=== PATIENT | female | born 1940 | race Caucasian/White ===

== ENCOUNTER → 2016-07-18 | Outpatient (CLI) | payer OTHER ==
[~2016-07-18] MED LIST: ATEN100T PO; CHOL200010 PO; CYAN100048; NYSS5 PO; PRAV20TA PO
== END | disposition home or self-care (01) ==
LOC: C.LABSPEC 13:25
PROVIDERS: ATTEND Family Medicine
DX: N28.89 Other specified disorders of kidney and ureter (principal)

== ENCOUNTER → 2016-07-27 | Outpatient (CLI) | payer OTHER ==
[2016-07-27 13:16] LABS: BLOOD UREA NITROGEN 15 mg/dl (7-18); BUN/CREATININE RATIO 18.2 (10-20); CREATININE 0.84 mg/dl (0.60-1.20)
== END | disposition home or self-care (01) ==
LOC: C.LABMFLN 08:37
PROVIDERS: ATTEND Urology
DX: N28.89 Other specified disorders of kidney and ureter (principal)

== ENCOUNTER → 2016-08-02 | Outpatient (CLI) | payer OTHER ==
[~2016-08-02] MED LIST changes: +OPTIRAY 320 IV PRN
--- NOTE | 2016-08-02 12:07 | DIAGNOSTIC IMAGING REPORT ---
KIDNEY (ABDOMEN) CT WITH AND WITHOUT INTRAVENOUS CONTRAST HISTORY: N39.0 Recurrent UTIN28.89 Renal [id number] TECHNIQUE: Multiaxial CT images of the abdomen were performed both before and after the intravenous administration of contrast to evaluate the kidneys. COMPARISON STUDY: Abdomen and pelvis CT 01/09/2014. FINDINGS: No renal stones or hydronephrosis. Bilateral proximal to mid ureters are normal in course and caliber. No renal masses identified. Focal scarring/defect within the lower pole of the right kidney remains unchanged. No suspicious filling defects seen within the opacified bilateral renal collecting systems or proximal to mid ureters. The lung bases are clear. Small hiatus hernia. No suspicious lytic or blastic osseous lesions. The visualized loops of bowel show no wall thickening or obstruction. A 4 mm hypodense lesion within the left hepatic lobe is too small to characterize but favors a cyst. This remains unchanged. The pancreas, spleen, and adrenal glands are unremarkable. No retroperitoneal lymphadenopathy. Cholecystectomy. IMPRESSION: 1. No renal masses identified. 2. No renal stones or hydronephrosis. 3. Stable cortical defect/scar within the lower pole of the right kidney. Electronically signed by: Jose A Rodríguez M.D. 08/02/2016 12:05 PM Dictated Date/Time: 08/02/2016 11:51 AM
== END | disposition home or self-care (01) ==
LOC: C.CTS 09:57
PROVIDERS: ATTEND Urology
DX: N28.89 Other specified disorders of kidney and ureter (principal); N39.0 Urinary tract infection, site not specified

== ENCOUNTER → 2016-09-19 | Outpatient (CLI) | payer OTHER ==
[~2016-09-19] MED LIST changes: -OPTIRAY 320 IV PRN
[2016-09-19 13:23] LABS: BASO % 1.8 %; BASO ABS # 0.15 K/uL (0-0.2); COMPLETE YES; EOS % 6.3 %; HEMATOCRIT 41.1 % (37-47); IG% 0.1 %; LYMPH % 22.4 %; LYMPH ABS # 1.83 K/uL (1.2-3.4); MEAN CELL VOLUME 91.1 fL (80-100); MEAN CORPUSCULAR HGB CONC 34.1 g/dl (32-36); MEAN PLATELET VOLUME 9.5 fL (7.4-10.4); MONO % 9.2 %; NEUT % 60.2 %; PLATELET COUNT 725 K/uL (130-400); RED BLOOD COUNT 4.51 M/uL (4.2-5.4); WHITE BLOOD COUNT 8.16 K/uL (4.8-10.8)
[2016-09-19 14:25] LABS: ALT/SGPT 56 U/L (12-78); AST/SGOT 33 U/L (15-37); BLOOD UREA NITROGEN 14 mg/dl (7-18); BUN/CREATININE RATIO 16.7 (10-20); CARBON DIOXIDE 25 mmol/L (21-32); CHLORIDE 104 mmol/L (98-107); CREATININE 0.84 mg/dl (0.60-1.20); GLUCOSE 93 mg/dl (70-99); SODIUM 138 mmol/L (136-145)
[2016-09-19 14:28] LABS: CHOLESTEROL 136 mg/dl (0-200); HDL CHOLESTEROL 45 mg/dl; LDL CHOLESTEROL CALCULATED 66 mg/dl; TRIGLYCERIDES 126 mg/dl (0-150); VERY LOW DENSITY LIPOPROT CALC 25 mg/dl
== END | disposition home or self-care (01) ==
LOC: C.LABMFLN 10:10
PROVIDERS: ATTEND Family Medicine
DX: I10 Essential (primary) hypertension (principal); R53.83 Other fatigue; E78.00 Pure hypercholesterolemia, unspecified; E55.9 Vitamin D deficiency, unspecified; E53.8 Deficiency of other specified B group vitamins

== ENCOUNTER → 2016-10-06 | Outpatient (CLI) | payer OTHER ==
[~2016-10-06] MED LIST changes: +AMLO-110 PO; +ASPEC81 PO; +ATOR-24 PO; +BUPR150T6 PO; +HYD500 PO; +IBUP-1428 PO; +LORA-741 PO; +MAGN250T9 PO; +SERT50TA PO; +TOPI25TA10 PO; +ZNT150 PO
== END | disposition home or self-care (01) ==
LOC: C.LABMFLN 11:57
PROVIDERS: ATTEND Family Medicine
DX: N39.0 Urinary tract infection, site not specified (principal)

== ENCOUNTER → 2017-03-27 | Outpatient (CLI) | payer OTHER ==
[2017-03-27 13:55] LABS: BASO % 1.2 %; BASO ABS # 0.12 K/uL (0-0.2); COMPLETE YES; EOS % 5.6 %; HEMATOCRIT 45.7 % (37-47); IG% 0.2 %; LYMPH % 12.5 %; LYMPH ABS # 1.21 K/uL (1.2-3.4); MEAN CELL VOLUME 92.9 fL (80-100); MEAN CORPUSCULAR HEMOGLOBIN 30.7 pg (25-34); MEAN PLATELET VOLUME 9.4 fL (7.4-10.4); NEUT % 72.5 %; PLATELET COUNT 914 K/uL (130-400); RED BLOOD COUNT 4.92 M/uL (4.2-5.4); WHITE BLOOD COUNT 9.67 K/uL (4.8-10.8)
[2017-03-27 14:41] LABS: ALKALINE PHOSPHATASE 69 U/L (45-117); ALT/SGPT 73 U/L (12-78); AST/SGOT 59 U/L (15-37); BLOOD UREA NITROGEN 12 mg/dl (7-18); BUN/CREATININE RATIO 14.1 (10-20); CARBON DIOXIDE 25 mmol/L (21-32); CHLORIDE 102 mmol/L (98-107); CREATININE 0.88 mg/dl (0.60-1.20); GLUCOSE 99 mg/dl (70-99); HDL CHOLESTEROL 53 mg/dl; POTASSIUM 4.4 mmol/L (3.5-5.1); SODIUM 135 mmol/L (136-145)
[2017-03-27 14:47] LABS: AMYLASE 24 U/L (25-115); CHOLESTEROL 146 mg/dl (0-200); CHOLESTEROL/HDL RATIO 2.8; LDL CHOLESTEROL CALCULATED 72 mg/dl; TRIGLYCERIDES 104 mg/dl (0-150); VERY LOW DENSITY LIPOPROT CALC 21 mg/dl
== END | disposition home or self-care (01) ==
LOC: C.LABMFLN 10:40
PROVIDERS: ATTEND Family Medicine
DX: I10 Essential (primary) hypertension (principal); E55.9 Vitamin D deficiency, unspecified; E53.8 Deficiency of other specified B group vitamins; E78.00 Pure hypercholesterolemia, unspecified; R11.2 Nausea with vomiting, unspecified; R53.83 Other fatigue

== ENCOUNTER → 2017-04-02 | Outpatient (CLI) | payer OTHER ==
[~2017-04-02] MED LIST changes: -AMLO-110 PO; -ASPEC81 PO; -ATOR-24 PO; -BUPR150T6 PO; -HYD500 PO; -IBUP-1428 PO; -LORA-741 PO; -MAGN250T9 PO; -SERT50TA PO; -TOPI25TA10 PO; -ZNT150 PO
--- NOTE | 2017-04-02 11:12 | DIAGNOSTIC IMAGING REPORT ---
GI W/AIR SMALL BOWEL ROUTINE CLINICAL HISTORY: R11.2 Nausea and [id number] Fatigue [facility] [id number] E X0D E R COMPARISON STUDY: Upper GI and small bowel follow-through 12/28/2015. FLUOROSCOPY TIME: 2.7 minutes. 37 images submitted. FINDINGS: The patient swallowed barium without difficulty. The esophagus is normal in course, caliber, motility. There is suggestion of prior Vangie fundoplication. Small sliding hiatus hernia persists. No gastroesophageal reflux demonstrated during the examination. The duodenal bulb and duodenal C sweep are within normal limits. Additional images of the small bowel were obtained. The small bowel is normal in course and caliber. No evidence for obstruction. The terminal ileum is normally distensible. Contrast reached the large bowel at 60 minutes IMPRESSION: 1. No significant change compared to the prior study. 2. Suggestion of prior Vangie fundoplication. A small sliding hiatal hernia persists. 3. Normal small bowel follow-through. Electronically signed by: Jose A Rodríguez M.D. 04/02/2017 11:10 AM Dictated Date/Time: 04/02/2017 11:05 AM
== END | disposition home or self-care (01) ==
LOC: C.RAD 09:33
PROVIDERS: ATTEND Family Medicine
DX: R53.83 Other fatigue (principal); R11.2 Nausea with vomiting, unspecified

== ENCOUNTER 2017-04-06 16:43 | Inpatient (IN) | payer OTHER ==
[~2017-04-06] VITALS: Ht 157.5 cm; Wt 72.9 kg
--- NOTE | 2017-04-06 17:43 | DIAGNOSTIC IMAGING REPORT ---
CHEST ONE VIEW PORTABLE CLINICAL HISTORY: 77 years-old Female presenting with EVALUATE ALTERED MENTAL STATUS/WEAKNESS. TECHNIQUE: Portable upright AP view of the chest was obtained. COMPARISON: 01/06/2014. FINDINGS: Atherosclerosis of aortic arch. Cardiac silhouette normal in size. Lungs and pleural spaces clear. Degenerative changes of the right glenohumeral joint. Cholecystectomy clips noted. IMPRESSION: 1. No acute cardiopulmonary disease. Electronically signed by: Selwyn Castro M.D. 04/06/2017 5:42 PM Dictated Date/Time: 04/06/2017 5:42 PM
[2017-04-06] MEDS ORDERED: AMLO-110 PO (17:45)
[2017-04-06] MEDS ORDERED: LORA-741 PO (17:46)
[2017-04-06] MEDS ORDERED: IBUP-1428 PO (17:47)
[2017-04-06] MEDS ORDERED: TOPI25TA10 PO (17:49)
[2017-04-06] MEDS ORDERED: ATOR-24 PO (17:53)
[2017-04-06] MEDS ORDERED: MAGN250T9 PO (17:55)
[2017-04-06] MEDS ORDERED: BUPR150T6 PO (17:56)
[2017-04-06] MEDS ORDERED: SERT50TA PO (17:58)
[2017-04-06 17:59] LABS: MANUAL MICROSCOPIC REQUIRED? NO; REVIEW REQ? NO; URINE APPEARANCE CLEAR (CLEAR); URINE BILIRUBIN NEG (NEG); URINE COLOR YELLOW; URINE EPITHELIAL CELL AUTO 0-5 /lpf (0-5); URINE NITRITE NEG (NEG); URINE SPECIFIC GRAVITY 1.016 (1.000-1.030); UROBILINOGEN NEG (NEG); ZZUR CULT IF INDIC CLEAN CATCH NO
[2017-04-06 18:17] LABS: ALT/SGPT 51 U/L (12-78); BLOOD UREA NITROGEN 9 mg/dl (7-18); BUN/CREATININE RATIO 10.5 (10-20); CALCIUM 9.4 mg/dl (8.5-10.1); CARBON DIOXIDE 26 mmol/L (21-32); CHLORIDE 102 mmol/L (98-107); CREATININE 0.85 mg/dl (0.60-1.20); GLUCOSE 88 mg/dl (70-99); MAGNESIUM 2.2 mg/dl (1.8-2.4); POTASSIUM 3.7 mmol/L (3.5-5.1); SODIUM 135 mmol/L (136-145)
--- NOTE | 2017-04-06 18:19 | DIAGNOSTIC IMAGING REPORT ---
HEAD CT NONCONTRAST CT DOSE: 537.48 mGy.cm HISTORY: EVALUATE ALTERED MENTAL STATUS/WEAKNESS TECHNIQUE: Multiaxial CT images of the head were performed without the use of intravenous contrast. Automated exposure control was utilized for this study. A dose lowering technique was utilized adhering to the principles of ALARA. Comparison: None. Findings: Single opacified left posterior ethmoid air cell, unchanged. The mastoid air cells are clear. The calvarium and skull base are intact. There is no mass, hematoma, midline shift, acute infarct. White matter hypodensity is nonspecific but suggestive of microvascular ischemic change. The ventricles and sulci demonstrate mild age-related involutional changes. Impression: No significant change compared to the prior study. No acute intracranial abnormality. Electronically signed by: Jose A Rodríguez M.D. 04/06/2017 6:18 PM Dictated Date/Time: 04/06/2017 6:09 PM
[2017-04-06 18:29] LABS: ALKALINE PHOSPHATASE 79 U/L (45-117); AST/SGOT 40 U/L (15-37); CKMB/CK RATIO 1.2 (0-3.0); PARTIAL THROMBOPLASTIN RATIO 1.2; PROTHROMBIN TIME (PATIENT) 10.7 SECONDS (9.0-12.0)
--- NOTE | 2017-04-06 18:41 | DIAGNOSTIC IMAGING REPORT ---
BILATERAL CAROTID DOPPLER STUDY HISTORY: Blurry vision in left eye. Possible stroke. COMPARISON: None. TECHNIQUE: Real-time, grayscale, and color Doppler sonography of the carotid arteries was performed. Imaging reviewed in the transverse and longitudinal planes. All measurements were calculated based on NASCET criteria. FINDINGS: Antegrade flow is seen in the bilateral vertebral arteries. The brachial pressures are hemodynamically similar. The peak systolic velocity within the right ICA is 60 cm/s. The right systolic ratio is 1. The peak systolic velocity within the left ICA is 52 cm/s. The left systolic ratio is 0.7. IMPRESSION: No hemodynamically significant stenosis seen within the carotid arteries. Electronically signed by: Jose A Rodríguez M.D. 04/06/2017 6:40 PM Dictated Date/Time: 04/06/2017 6:39 PM
[2017-04-06 19:17] LABS: HEMATOCRIT 42.6 % (37-47); MEAN CELL VOLUME 90.6 fL (80-100); MEAN CORPUSCULAR HEMOGLOBIN 32.6 pg (25-34); MEAN CORPUSCULAR HGB CONC 35.9 g/dl (32-36); MEAN PLATELET VOLUME 9.3 fL (7.4-10.4); PLATELET COUNT 858 K/uL (130-400); WHITE BLOOD COUNT 12.18 K/uL (4.8-10.8)
[2017-04-06 19:20] LABS: BASO % 0.8 %; COMPLETE YES; ECHINOCYTES 1+; EOS % 4.7 %; IG% 0.2 %; LYMPH % 14.1 %; LYMPH ABS # 1.72 K/uL (1.2-3.4); NEUT % 72.2 %
[2017-04-06] MEDS ORDERED: ASPIRIN 81 MG CHEW PO STA (20:15)
[2017-04-06] MEDS ORDERED: SODIUM CHLORIDE 0.9% 500ML 500 ML IV STA (20:15)
--- NOTE | 2017-04-06 20:39 | EMERGENCY ROOM VISIT NOTE ---
History Report prepared by Vangie: Santos Wheeler Under the Supervision of: Dr. Michele Ruby D.O. First contact with patient: 17:06 Chief Complaint: NEURO SYMPTOMS Stated Complaint: VERY BLURRED VISION IN LF EYE,WORRIED ABOUT STROKE History of Present Illness The patient is a 77 year old female who presents to the Emergency Room with complaints of constant blurry vision in her left eye, which she states has been improving. The patient states that she was sitting on the couch watching the news when suddenly she could not see anything but movement. Source of History: patient Onset: 1500 Position: ear (left) Quality: other (blurry vision) Timing: constant Review of Systems See HPI for pertinent positives & negatives. A total of 10 systems reviewed and were otherwise negative. Past Medical & Surgical Medical Problems: (1) Cancer of kidney (2) HTN (hypertension) Social History Smoking Status: Never Smoker Alcohol Use: none Drug Use: none Marital Status: Housing Status: lives with family Current/Historical Medications Scheduled Amlodipine (Norvasc), 5 MG PO DAILY Atenolol (Tenormin), 100 MG PO QAM Atorvastatin (Lipitor), 40 MG PO HS Bupropion HCl (Bupropion HCl Xl), 150 MG PO QAM Cholecalciferol (Vitamin D), 6,000 UNITS PO DAILY Cyanocobalamin (Vitamin B-12), 1,000 MCG DAILY Magnesium (Magnesium), 250 MG PO DAILY Sertraline (Zoloft), 25-50 MG PO HS Scheduled PRN Ibuprofen (Motrin), 800 MG PO QID PRN for Pain Lorazepam (Ativan), 0.5 MG PO BID PRN for Anxiety Topiramate (Topamax), 25 MG PO HS PRN for Migraine Allergies Coded Allergies: Codeine (Unverified Allergy, Unknown, UNKNOWN, 04/06/17) Lisinopril (Unverified Adverse Reaction, Severe, COUGHING, 04/06/17) Quinapril (Unverified Adverse Reaction, Severe, COUGHING, 04/06/17) Physical Exam Vital Signs Date Time Temp Pulse Resp B/P (MAP) Pulse Ox O2 Delivery O2 Flow Rate FiO2 04/06/17 19:13 57 04/06/17 18:45 63 16 158/65 04/06/17 16:56 36.4 60 20 172/84 97 Room Air Physical Exam VITAL SIGNS: were reviewed as above. GENERAL:Non-toxic in appearance. SKIN: Warm dry and pink. HEAD: Normocephalic and atraumatic. EYES: No gross abnormality noted on funduscopic exam of the left eye. Pupils equal and responsive. EOMI OROPHARYNX: Is clear and moist NECK: Supple without lymphadenopathy or meningismus. LUNGS: clear. HEART: Regular rate and rhythm. ABDOMEN: Soft and nontender. EXTREMITIES: Warm and well perfused. NEUROLOGICALLY: Awake alert and oriented without focal deficit. Cranial nerves 2 -12 are intact. There is no pronator drift. Cerebellar testing is within normal limits. There is no nystagmus. There is no facial droop. Speech is clear. Vision is grossly normal. MUSCULOSKELETAL: Good muscle tone. No evidence of trauma. Medical Decision & Procedures ER Provider Diagnostic Interpretation: Radiology results as stated below per my review and radiologist interpretation: HEAD CT NONCONTRAST CT DOSE: 537.48 mGy.cm HISTORY: EVALUATE ALTERED MENTAL STATUS/WEAKNESS TECHNIQUE: Multiaxial CT images of the head were performed without the use of intravenous contrast. Automated exposure control was utilized for this study. A dose lowering technique was utilized adhering to the principles of ALARA. Comparison: None. Findings: Single opacified left posterior ethmoid air cell, unchanged. The mastoid air cells are clear. The calvarium and skull base are intact. There is no mass, hematoma, midline shift, acute infarct. White matter hypodensity is nonspecific but suggestive of microvascular ischemic change. The ventricles and sulci demonstrate mild age-related involutional changes. Impression: No significant change compared to the prior study. No acute intracranial abnormality. Electronically signed by: Jose A Rodríguez M.D. 04/06/2017 6:18 PM Dictated Date/Time: 04/06/2017 6:09 PM CHEST ONE VIEW PORTABLE CLINICAL HISTORY: 77 years-old Female presenting with EVALUATE ALTERED MENTAL STATUS/WEAKNESS. TECHNIQUE: Portable upright AP view of the chest was obtained. COMPARISON: 01/06/2014. FINDINGS: Atherosclerosis of aortic arch. Cardiac silhouette normal in size. Lungs and pleural spaces clear. Degenerative changes of the right glenohumeral joint. Cholecystectomy clips noted. IMPRESSION: 1. No acute cardiopulmonary disease. Electronically signed by: Selwyn Castro M.D. 04/06/2017 5:42 PM Dictated Date/Time: 04/06/2017 5:42 PM BILATERAL CAROTID DOPPLER STUDY HISTORY: Blurry vision in left eye. Possible stroke. COMPARISON: None. TECHNIQUE: Real-time, grayscale, and color Doppler sonography of the carotid arteries was performed. Imaging reviewed in the transverse and longitudinal planes. All measurements were calculated based on NASCET criteria. FINDINGS: Antegrade flow is seen in the bilateral vertebral arteries. The brachial pressures are hemodynamically similar. The peak systolic velocity within the right ICA is 60 cm/s. The right systolic ratio is 1. The peak systolic velocity within the left ICA is 52 cm/s. The left systolic ratio is 0.7. IMPRESSION: No hemodynamically significant stenosis seen within the carotid arteries. Electronically signed by: Jose A Rodríguez M.D. 04/06/2017 6:40 PM Dictated Date/Time: 04/06/2017 6:39 PM Laboratory Results 04/06/17 17:15 Red Blood Count 4.70, Mean Corpuscular Volume 90.6, Mean Corpuscular Hemoglobin 32.6, Mean Corpuscular Hemoglobin Concent 35.9, Mean Platelet Volume 9.3, Neutrophils (%) (Auto) 72.2, Lymphocytes (%) (Auto) 14.1, Monocytes (%) (Auto) 8.0, Eosinophils (%) (Auto) 4.7, Basophils (%) (Auto) 0.8, Neutrophils # (Auto) 8.79, Lymphocytes # (Auto) 1.72, Monocytes # (Auto) 0.97, Eosinophils # (Auto) 0.57, Basophils # (Auto) 0.10 04/06/17 17:15 Test 04/06/17 17:15 White Blood Count 12.18 K/uL (4.8-10.8) Red Blood Count 4.70 M/uL (4.2-5.4) Hemoglobin 15.3 g/dL (12.0-16.0) Hematocrit 42.6 % (37-47) Mean Corpuscular Volume 90.6 fL (80-100) Mean Corpuscular Hemoglobin 32.6 pg (25-34) Mean Corpuscular Hemoglobin Concent 35.9 g/dl (32-36) Platelet Count 858 K/uL (130-400) Mean Platelet Volume 9.3 fL (7.4-10.4) Neutrophils (%) (Auto) 72.2 % Lymphocytes (%) (Auto) 14.1 % Monocytes (%) (Auto) 8.0 % Eosinophils (%) (Auto) 4.7 % Basophils (%) (Auto) 0.8 % Neutrophils # (Auto) 8.79 K/uL (1.4-6.5) Lymphocytes # (Auto) 1.72 K/uL (1.2-3.4) Monocytes # (Auto) 0.97 K/uL (0.11-0.59) Eosinophils # (Auto) 0.57 K/uL (0-0.5) Basophils # (Auto) 0.10 K/uL (0-0.2) RDW Standard Deviation 50.7 fL (36.4-46.3) RDW Coefficient of Variation 15.2 % (11.5-14.5) Immature Granulocyte % (Auto) 0.2 % Immature Granulocyte # (Auto) 0.03 K/uL (0.00-0.02) Echinocytes 1+ Erythrocyte Sedimentation Rate 10 mm/hr (0-21) Prothrombin Time 10.7 SECONDS (9.0-12.0) Prothromb Time International Ratio 1.0 (0.9-1.1) Activated Partial Thromboplast Time 30.3 SECONDS (21.0-31.0) Partial Thromboplastin Ratio 1.2 Urine Color YELLOW Urine Appearance CLEAR (CLEAR) Urine pH 6.0 (4.5-7.5) Urine Specific [place] 1.016 (1.000-1.030) Urine Protein NEG (NEG) Urine Glucose (UA) NEG (NEG) Urine Ketones NEG (NEG) Urine Occult Blood NEG (NEG) Urine Nitrite NEG (NEG) Urine Bilirubin NEG (NEG) Urine Urobilinogen NEG (NEG) Urine Leukocyte Esterase SMALL (NEG) Urine WBC (Auto) 1-5 /hpf (0-5) Urine RBC (Auto) 0-4 /hpf (0-4) Urine Hyaline Casts (Auto) 0 /lpf (0-5) Urine Epithelial Cells (Auto) 0-5 /lpf (0-5) Urine Bacteria (Auto) NEG (NEG) Anion Gap 7.0 mmol/L (3-11) Est Creatinine Clear Calc Drug Dose 51.5 ml/min Estimated GFR () 76.1 Estimated GFR (Non- 65.6 BUN/Creatinine Ratio 10.5 (10-20) Calcium Level 9.4 mg/dl (8.5-10.1) Magnesium Level 2.2 mg/dl (1.8-2.4) Total Bilirubin 0.4 mg/dl (0.2-1) Direct Bilirubin 0.1 mg/dl (0-0.2) Aspartate Amino Transf (AST/SGOT) 40 U/L (15-37) Alanine Aminotransferase (ALT/SGPT) 51 U/L (12-78) Alkaline Phosphatase 79 U/L (45-117) Total Creatine Kinase 100 U/L (26-192) Creatine Kinase MB 1.2 ng/ml (0.5-3.6) Creatine Kinase MB Ratio 1.2 (0-3.0) Troponin I < 0.015 ng/ml (0-0.045) Total Protein 8.2 gm/dl (6.4-8.2) Albumin 4.0 gm/dl (3.4-5.0) Thyroid Stimulating Hormone (TSH) 2.080 uIu/ml (0.300-4.500) Laboratory results as stated above per my review. Medications Administered Medications (Trade) Dose Ordered Sig/Antoinette Route Start Time Stop Time Status Last Admin Dose Admin Sodium Chloride 500 ml @ 999 mls/hr Q31M STAT IV 04/06/17 20:15 04/06/17 20:45 04/06/17 20:24 999 MLS/HR Aspirin (Aspirin Chew) 324 mg NOW STAT PO 04/06/17 20:15 04/06/17 20:16 DC 04/06/17 20:23 324 MG ECG Indication: other (blurry vision) Rate (beats per minute): 59 Rhythm: sinus rhythm Findings: PAC, other (No acute injury) ED Course 1705: Previous medical records were reviewed. The patient was evaluated in room B4. A complete history and physical examination was performed. 2010: I reassessed the patient, and I updated her on the treatment plan. She was agreeable. 2022: Discussed the patient's case with Dr. Rai. The patient will be evaluated for further treatment and disposition. Medical Decision Differential includes acute coronary syndrome, myocardial infarction, CVA, TIA, anemia, infection, pneumonia, UTI, pyelonephritis, poor nutrition, dehydration, electrolyte disturbance,hypoglycemia. This is a 77-year-old female who presents to the ED with a chief complaint of blurring of her left eye. The patient reports that her symptoms started around 3 PM this afternoon. She states that she was sitting on the couch and her sudden loss of vision in the left eye occurred. She states that she could see movement of objects but could not see anything clearly. Her symptoms slowly improved since it occurred. It is not back to normal yet. The patient does not have any additional symptoms. Physical exam and neuro exam were unremarkable. Funduscopic exam was performed and there was no significant abnormality noted. The patient's sedimentation rate is 10. A CT scan of the head did not show any acute process. A chest x-ray was negative for acute disease. Complete metabolic panel is unremarkable. Troponin is negative. EKG shows a sinus rhythm at a rate of 59. No acute injury. PACs are present. The patient reports that she does have a headache. This was not initially present when she arrived. She also reported to me that she had some vomiting and diarrhea yesterday. The test results are unremarkable this time. She has not had any additional symptoms. She reports being hungry. She is going to be fed. She was given aspirin by mouth. She is given some IV fluids. She'll be seen by the hospitalist for further inpatient evaluation and care. Medication Reconcilliation Current Medication List: was personally reviewed by me Blood Pressure Screening Patient's blood pressure: Elevated blood pressure Monitored by the hospitalist Consults Time Called: 2007 Consulting Physician: Cecelia Returned Call: 2022 Discussed the patient's case with Dr. Rai. The patient will be evaluated for further treatment and disposition. Impression Primary Impression: Amaurosis fugax Scribe Attestation The scribe's documentation has been prepared under my direction and personally reviewed by me in its entirety. I confirm that the note above accurately reflects all work, treatment, procedures, and medical decision making performed by me. Departure Information Dispostion Being Evaluated By Hospitalist Referrals Miguel Palacio M.D. (PCP) Patient Instructions My [facility]
--- NOTE | 2017-04-06 21:05 | History and Physical ---
History & Physical Date & Time of Service: Apr 06, 2017 at 20:32 Chief Complaint: Very Blurred Vision In Lf Eye,Worried About Stroke Primary Care Physician: Miguel Palacio M.D. History of Present Illness Source: patient, clinic records, hospital records Mrs Estrada is a 77 year old female who presents to the ER with sudden onset haziness of vision in her left eye. This occurred earlier today while watching television. She covered up each eye in turn and realized that just her left eye vision was hazy but her right eye was unaffected. She called an eye doctor who couldn't see her until Sunday so therefore decided to come to the ER with her daughter. She has never had this happen previously. She denies any black curtain , complete loss of vision, double vision, eye pain, eye redness or difference in peripheral vs. central vision. She has previously had right eye cataract surgery but no left eye surgery. She wears glasses for reading only. She has also been having migraine type headaches over many months - usually right sided, constant aching. Started this morning with an intense headache and feels her vision is effected by this. Nasal congestion for last few months. Yesterday she had some diarrhea and vomiting in the evening. Occurs once/month. Previously seen by Dr Delacruz for 2 years. Normal recent upper GI series. Feels it coming on. Usually before a bowel movement. Stool has been looking dark ? black. She has generally been deteriorating with fatigue over the past 1-2 years. Past Medical/Surgical History Medical Problems: (1) Cancer of kidney Status: [address]. [address] Smith. Hx Cryotherapy, no chemotherapy or radiation. (2) HTN (hypertension) Status: Chronic PSHx 2x Cholecystectomy Hysterectomy + BL oophrectomy Vangie's Fundoplication - hiatal hernia Family History Noncontributory Social History Smoking Status: Never Smoker Smokeless Tobacco Use: No Alcohol Use: none Drug Use: none Marital Status: Housing status: lives with family Occupational Status: retired Immunizations History of Influenza Vaccine: N/A Influenza Vaccine Date: Apr 10, 2010 History of Tetanus Vaccine?: Unknown History of Pneumococcal: Yes Pneumococcal Date: Aug 12, 2010 History of Hepatitis B Vaccine: Yes Hepatitis Immunization Date: Aug 11, 1994 Multi-Drug Resistant Organisms History of MDRO: No Allergies Coded Allergies: Codeine (Unverified Allergy, Unknown, UNKNOWN, 04/06/17) Hydrochlorothiazide (Verified Allergy, Unknown, SHORTNESS OF BREATH, ) Lisinopril (Unverified Adverse Reaction, Severe, COUGHING, 04/06/17) Quinapril (Unverified Adverse Reaction, Severe, COUGHING, 04/06/17) Home Medications Scheduled Amlodipine (Norvasc), 5 MG PO DAILY Aspirin (Aspirin EC Low Dose), 81 MG PO QAM Atenolol (Tenormin), 100 MG PO QAM Atorvastatin (Lipitor), 40 MG PO HS Bupropion HCl (Bupropion HCl Xl), 150 MG PO QAM Cholecalciferol (Vitamin D), 6,000 UNITS PO DAILY Cyanocobalamin (Vitamin B-12), 1,000 MCG DAILY Hydroxyurea (Hydroxyurea), 500 MG PO BID Magnesium (Magnesium), 250 MG PO DAILY Ranitidine HCl (Ranitidine HCl), 150 MG PO BID Sertraline (Zoloft), 25-50 MG PO HS Scheduled PRN Ibuprofen (Motrin), 800 MG PO QID PRN for Pain Lorazepam (Ativan), 0.5 MG PO BID PRN for Anxiety Topiramate (Topamax), 25 MG PO HS PRN for Migraine Review of Systems All other systems reviewed and otherwise negative Physical Exam Vital Signs Date Time Temp Pulse Resp B/P (MAP) Pulse Ox O2 Delivery O2 Flow Rate FiO2 04/06/17 19:13 57 04/06/17 18:45 63 16 158/65 04/06/17 16:56 36.4 60 20 172/84 97 Room Air General Appearance: WD/WN, no apparent distress Head: normocephalic, atraumatic Eyes: normal inspection, PERRL, EOMI Neck: supple, no JVD, no carotid bruits, trachea midline Respiratory/Chest: chest non-tender, lungs clear, normal breath sounds, no respiratory distress, no accessory muscle use Cardiovascular: regular rate, rhythm, no murmur, normal peripheral pulses Abdomen/GI: normal bowel sounds, non tender, soft Extremities/Musculoskelatal: no calf tenderness, normal capillary refill, no pedal edema Neurologic/Psych: no motor/sensory deficits, alert, oriented x 3, + abnormal utility person II-XII (left eye haziness, no diplopia, no difference peripiherally or centrally, otherwise unremarkable) Skin: normal color, warm/dry, no rash Diagnostics Laboratory Results Results Past 24 Hours Test 04/06/17 17:15 Range/Units White Blood Count 12.18 4.8-10.8 K/uL Red Blood Count 4.70 4.2-5.4 M/uL Hemoglobin 15.3 12.0-16.0 g/dL Hematocrit 42.6 37-47 % Mean Corpuscular Volume 90.6 80-100 fL Mean Corpuscular Hemoglobin 32.6 25-34 pg Mean Corpuscular Hemoglobin Concent 35.9 32-36 g/dl Platelet Count 858 130-400 K/uL Mean Platelet Volume 9.3 7.4-10.4 fL Neutrophils (%) (Auto) 72.2 % Lymphocytes (%) (Auto) 14.1 % Monocytes (%) (Auto) 8.0 % Eosinophils (%) (Auto) 4.7 % Basophils (%) (Auto) 0.8 % Neutrophils # (Auto) 8.79 1.4-6.5 K/uL Lymphocytes # (Auto) 1.72 1.2-3.4 K/uL Monocytes # (Auto) 0.97 0.11-0.59 K/uL Eosinophils # (Auto) 0.57 0-0.5 K/uL Basophils # (Auto) 0.10 0-0.2 K/uL RDW Standard Deviation 50.7 36.4-46.3 fL RDW Coefficient of Variation 15.2 11.5-14.5 % Immature Granulocyte % (Auto) 0.2 % Immature Granulocyte # (Auto) 0.03 0.00-0.02 K/uL Echinocytes 1+ Erythrocyte Sedimentation Rate 10 0-21 mm/hr Prothrombin Time 10.7 9.0-12.0 SECONDS Prothromb Time International Ratio 1.0 0.9-1.1 Activated Partial Thromboplast Time 30.3 21.0-31.0 SECONDS Partial Thromboplastin Ratio 1.2 Urine Color YELLOW Urine Appearance CLEAR CLEAR Urine pH 6.0 4.5-7.5 Urine Specific [place] 1.016 1.000-1.030 Urine Protein NEG NEG Urine Glucose (UA) NEG NEG Urine Ketones NEG NEG Urine Occult Blood NEG NEG Urine Nitrite NEG NEG Urine Bilirubin NEG NEG Urine Urobilinogen NEG NEG Urine Leukocyte Esterase SMALL NEG Urine WBC (Auto) 1-5 0-5 /hpf Urine RBC (Auto) 0-4 0-4 /hpf Urine Hyaline Casts (Auto) 0 0-5 /lpf Urine Epithelial Cells (Auto) 0-5 0-5 /lpf Urine Bacteria (Auto) NEG NEG Sodium Level 135 136-145 mmol/L Potassium Level 3.7 3.5-5.1 mmol/L Chloride Level 102 98-107 mmol/L Carbon Dioxide Level 26 21-32 mmol/L Anion Gap 7.0 3-11 mmol/L Blood Urea Nitrogen 9 7-18 mg/dl Creatinine 0.85 0.60-1.20 mg/dl Est Creatinine Clear Calc Drug Dose 51.5 ml/min Estimated GFR () 76.1 Estimated GFR (Non- 65.6 BUN/Creatinine Ratio 10.5 10-20 Random Glucose 88 70-99 mg/dl Calcium Level 9.4 8.5-10.1 mg/dl Magnesium Level 2.2 1.8-2.4 mg/dl Total Bilirubin 0.4 0.2-1 mg/dl Direct Bilirubin 0.1 0-0.2 mg/dl Aspartate Amino Transf (AST/SGOT) 40 15-37 U/L Alanine Aminotransferase (ALT/SGPT) 51 12-78 U/L Alkaline Phosphatase 79 45-117 U/L Total Creatine Kinase 100 26-192 U/L Creatine Kinase MB 1.2 0.5-3.6 ng/ml Creatine Kinase MB Ratio 1.2 0-3.0 Troponin I < 0.015 0-0.045 ng/ml Total Protein 8.2 6.4-8.2 gm/dl Albumin 4.0 3.4-5.0 gm/dl Thyroid Stimulating Hormone (TSH) 2.080 0.300-4.500 uIu/ml Diagnostic Radiology CHEST ONE VIEW PORTABLE CLINICAL HISTORY: 77 years-old Female presenting with EVALUATE ALTERED MENTAL STATUS/WEAKNESS. TECHNIQUE: Portable upright AP view of the chest was obtained. COMPARISON: 01/06/2014. FINDINGS: Atherosclerosis of aortic arch. Cardiac silhouette normal in size. Lungs and pleural spaces clear. Degenerative changes of the right glenohumeral joint. Cholecystectomy clips noted. IMPRESSION: 1. No acute cardiopulmonary disease. Electronically signed by: Selwyn Castro M.D. 04/06/2017 5:42 PM Dictated Date/Time: 04/06/2017 5:[address] NONCONTRAST CT DOSE: 537.48 mGy.cm HISTORY: EVALUATE ALTERED MENTAL STATUS/WEAKNESS TECHNIQUE: Multiaxial CT images of the head were performed without the use of intravenous contrast. Automated exposure control was utilized for this study. A dose lowering technique was utilized adhering to the principles of ALARA. Comparison: None. Findings: Single opacified left posterior ethmoid air cell, unchanged. The mastoid air cells are clear. The calvarium and skull base are intact. There is no mass, hematoma, midline shift, acute infarct. White matter hypodensity is nonspecific but suggestive of microvascular ischemic change. The ventricles and sulci demonstrate mild age-related involutional changes. Impression: No significant change compared to the prior study. No acute intracranial abnormality. Electronically signed by: Jose A Rodríguez M.D. 04/06/2017 6:18 PM Dictated Date/Time: 04/06/2017 6:09 PM BILATERAL CAROTID DOPPLER STUDY HISTORY: Blurry vision in left eye. Possible stroke. COMPARISON: None. TECHNIQUE: Real-time, grayscale, and color Doppler sonography of the carotid arteries was performed. Imaging reviewed in the transverse and longitudinal planes. All measurements were calculated based on NASCET criteria. FINDINGS: Antegrade flow is seen in the bilateral vertebral arteries. The brachial pressures are hemodynamically similar. The peak systolic velocity within the right ICA is 60 cm/s. The right systolic ratio is 1. The peak systolic velocity within the left ICA is 52 cm/s. The left systolic ratio is 0.7. IMPRESSION: No hemodynamically significant stenosis seen within the carotid arteries. Electronically signed by: Jose A Rodríguez M.D. 04/06/2017 6:40 PM Dictated Date/Time: 04/06/2017 6:39 PM EKG Sinus bradycardia with Premature atrial complexes. 59 bpm When compared with ECG of 06-JAN-2014 22:12, Premature atrial complexes are now Present Impression Assessment and Plan 77 year old female presents to the ER with acute onset haziness unilateral haziness Left eye vision haziness - will rule out stroke with MRI however most likely diagnosis is that of complicated migraine - MRI combo - evaluation to include r/o malignancy/CVA given below - neuro checks with order set - consult neurology Headaches/migraines - acetaminophen PRN as this usually works for her headaches - previously she took topiramate however no longer takes this medication Chronic Thrombocythemia - unclear etiology, patient generally fatigued concerning for malignancy given her age however ESR normal, possibly related to B12 supplementation vs. essential vs. myelodysplasia - ESR normal - peripheral blood smear - consult heme/onc as possibly related to current condition if hypercoagulable Anxiety - continue setraline 25mg PO HS HTN - Continue amlodipine 5mg daily .Attending Addendum: I have physically seen and examined this patient, have directed the resident medical activities, and agree with the H&P as noted above with the following exceptions as noted. Assessment and Plan: Probable Complicated migraine with hazy vision left eye-- Order MRI brain combo Neuro checks every 4 hours Consult neurology Hypertension-- Continue amlodipine 5 mg by mouth daily. Anxiety-- Continue sertraline 25 mg by mouth at bedtime. Chronic thrombocythemia-- Peripheral smear. Sedimentation rate. Level of Care Telemetry Advanced Directives Existing Power of Patternmaker Apprentice Metal: Yes (as discussed with the patient) Resuscitation Status FULL RESUSCITATION VTE Prophylaxis VTE Risk Assessment Done? Y/N: Yes Risk Level: Moderate Given or contraindicated: Enoxaparin (Lovenox)SQ, T.E.D. Stockings, SCD's Social Service Consult None Apply Additional Copies To Miguel Palacio M.D. Resident Tracking Resident Involvement: Resident Care Provided Care Provided: Adult Hospital Medicine
[2017-04-06] MEDS ORDERED: PHARMACIST DISCHARGE MED REC CONSULT PRN (21:15)
[2017-04-06] MEDS ORDERED: ACETAMINOPHEN 325 MG TAB PO PRN (21:15)
[2017-04-06] MEDS ORDERED: LORAZEPAM 0.5 MG TAB PO PRN (21:15)
[2017-04-06] MEDS ORDERED: ONDANSETRON INJ 2 MG/ML 2 ML VIAL IV PRN (21:15)
[2017-04-06 22:05] VITALS: O2SAT 94
[2017-04-06 22:35] VITALS: BP 145/78; PULSE 60; TEMP 36.4; O2SAT 92
[2017-04-06] MEDS ORDERED: GADAVIST IV PRN (23:30)
[2017-04-06 23:35] VITALS: BP 145/78; PULSE 60; TEMP 36.4; O2SAT 92
[2017-04-06 23:50] VITALS: Ht 157.5 cm; Wt 72.9 kg
[2017-04-07] MEDS: SODIUM CHLORIDE 0.9% 1000ML 1,000 ML IV SCH ×2 (00:16→08:37)
[2017-04-07 04:00] VITALS: BP 102/59; PULSE 60; TEMP 36.7; O2SAT 93
[2017-04-07 07:32] VITALS: BP 119/65; PULSE 60; TEMP 36.7; O2SAT 95
[2017-04-07 07:35] LABS: BASO % 1.1 %; COMPLETE YES; EOS % 5.4 %; IG% 0.2 %; MEAN CELL VOLUME 91.3 fL (80-100); MEAN CORPUSCULAR HEMOGLOBIN 31.5 pg (25-34); MEAN CORPUSCULAR HGB CONC 34.5 g/dl (32-36); MEAN PLATELET VOLUME 9.3 fL (7.4-10.4); MONO % 10.2 %; NEUT % 62.1 %; PLATELET COUNT 833 K/uL (130-400); RED BLOOD COUNT 4.38 M/uL (4.2-5.4); WHITE BLOOD COUNT 9.06 K/uL (4.8-10.8)
[2017-04-07 08:07] LABS: BUN/CREATININE RATIO 11.1 (10-20); CALCIUM 8.8 mg/dl (8.5-10.1); CREATININE 0.74 mg/dl (0.60-1.20); POTASSIUM 3.7 mmol/L (3.5-5.1)
--- NOTE | 2017-04-07 08:53 | Neurology Consultation ---
Neurology Consultation Date of Consultation: Apr 07, 2017. Attending Physician: Cristhian Rai M.D. Primary Care Physician: Miguel Palacio M.D. Reason for Consultation: Patient is a 77-year-old, was asked to see the request of doctors Jennifer and Cecelia, for neurologic consultation regarding episode of decreased vision in the left eye plus headache History of Present Illness Source: patient, clinic records, hospital records Patient tells me she has had headaches for a year. I do find old records stating that she had vertigo and headaches in the summer of 2014. An MRI of the brain at that time with without contrast showed some minimal old small vessel ischemic disease but no other significant findings. Certainly, the patient feels the headaches have been nearly every day for the past year. She wakes up with a right frontal headache which can be bifrontal of an aching nature. Over- the-counter medicines such as ibuprofen will resolve the headache temporarily. She tends to take ibuprofen most days. The headaches do not radiate and are not associated with any vision issues, nausea, vomiting, sonophobia, or symptoms in the limbs. She sometimes gets photophobia. In general, she is feels very "down" over the last year. She is quite distressed that her has liver cancer and worries about this. In March she was put on 25 milligram sertraline at night by her primary care physician, Dr. Palacio. This plus bupropion help the mood some but not significantly. In addition she has significant fatigue and no motivation to do anything. Since April 04, she has had some diarrhea, nausea and vomiting. This gradually got a little better, however, yesterday she had diarrhea in the morning. On April 06, around 3 o'clock in the afternoon, she was watching the news on TV with her when she had the sudden onset of cloudy/blurry vision in her left eye. She covered her left eye and could see perfectly well out of the right eye. When she covered her right eye, the whole visual field diffusely was cloudy and blurry. There is no eye pain. There was no increase in her headache, but she had her typical headache all long. She had no new speech problem, confusion, weakness or numbness in the limbs, or pain. Her balance was unaffected and she has no incontinence of urine. The worst of this lasted approximately 30-60 minutes. The patient had no double vision. She arrived to the emergency room on April 06 at 1656 hours her with a temperature 36.4, pulse 60 and regular, respiratory rate 20, blood pressure 172/ 84, and O2 saturation 97 percent. By the time she got to the emergency room her visual symptoms were markedly improved. She had no other focal neurologic deficits, meningeal signs, or encephalopathy. CT scan of the head was unremarkable. Chest x-ray was unremarkable. Carotid ultrasound showed no significant stenosis bilaterally. CBC showed increased white count initially but today i white count is normal. She has significant platelet elevation at greater than 150. ESR was 10. Chem profile was unremarkable. MRI of the brain was obtained. There is no final report but there does not seem to be any acute changes on diffusion imaging. There is mild old small vessel ischemia only and moderate generalized atrophy. She has had no further episodes or problems overnight. This morning, she has some slight blurriness in the left eye only. Past Medical/Surgical History Medical Problems: (1) Amaurosis fugax Status: Acute Hypertension Dyslipidemia Significant depression and generalized anxiety disorder Chronic non migrainous headaches Chronic fatigue Chronic thrombocythemia Post 2 C sections and a complete hysterectomy Cholecystectomy Partial nephrectomy Vangie fundoplication and hiatal hernia repair Family History The age 74 of a stroke. She had hypertension and heart disease. Father age 59 from suicide. She is uncertain about any medical problems her father had. Social History Patient never smoked cigarettes or used alcohol. 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 Smoking Status: Never smoker Smokeless Tobacco Use: No Alcohol Use: none Drug Use: none Marital Status: Housing Status: lives with family Occupation Status: retired Allergies Coded Allergies: Codeine (Unverified Allergy, Unknown, UNKNOWN, 04/06/17) Hydrochlorothiazide (Verified Allergy, Unknown, SHORTNESS OF BREATH, ) Lisinopril (Unverified Adverse Reaction, Severe, COUGHING, 04/06/17) Quinapril (Unverified Adverse Reaction, Severe, COUGHING, 04/06/17) Current Inpatient Medications Current Inpatient Medications Medications (Trade) Dose Ordered Sig/Antoinette Route Start Time Stop Time Status Last Admin Dose Admin Enoxaparin Sodium (Lovenox Inj) 40 mg Q24H SC 04/07/17 09:00 05/07/17 08:59 04/07/17 07:56 40 MG Acetaminophen (Tylenol Tab) 650 mg Q4H PRN PO 04/06/17 21:15 05/06/17 21:14 04/07/17 06:07 650 MG Ondansetron HCl (Zofran Inj) 4 mg Q6H PRN IV 04/06/17 21:15 05/06/17 21:14 Amlodipine Besylate (Norvasc Tab) 5 mg DAILY PO 04/07/17 09:00 05/07/17 08:59 04/07/17 07:55 5 MG Atenolol (Tenormin Tab) 100 mg QAM PO 04/07/17 09:00 05/07/17 08:59 04/07/17 07:55 100 MG Atorvastatin Calcium (Lipitor Tab) 40 mg HS PO 04/07/17 21:00 05/07/17 20:59 Bupropion HCl (Wellbutrin-Xl Tab) 150 mg QAM PO 04/07/17 09:00 05/07/17 08:59 04/07/17 07:54 150 MG Lorazepam (Ativan Tab) 0.5 mg BID PRN PO 04/06/17 21:15 05/06/17 21:14 04/07/17 00:16 0.5 MG Sertraline HCl (Zoloft Tab) 25 mg HS PO 04/07/17 21:00 05/07/17 20:59 Cholecalciferol (Vitamin D Tab) 2,000 inter.unit QAM PO 04/07/17 09:00 05/07/17 08:59 04/07/17 07:55 2,000 INTER.UNIT Cyanocobalamin (Vitamin B-12 Tab) 1,000 mcg QAM PO 04/07/17 09:00 05/07/17 08:59 04/07/17 07:56 1,000 MCG Magnesium Oxide (Mag-Ox Tab) 400 mg QAM PO 04/07/17 09:00 05/07/17 08:59 04/07/17 07:55 400 MG Miscellaneous Information (Pharmacist Discharge Med Rec Consult) 1 ea UD PRN N/A 04/06/17 21:15 05/06/17 21:14 Sodium Chloride 1,000 ml @ 100 mls/hr Q10H IV 04/06/17 23:45 05/06/17 23:44 04/07/17 00:16 100 MLS/HR Gadobutrol (Gadavist) 7 mmol UD PRN IV 04/06/17 23:30 04/10/17 23:29 Review of Systems Constitutional: + fatigue, No weakness Eyes: + worsening of vision, No diplopia ENT: No tinnitus, No trouble swallowing Respiratory: No cough, No shortness of breath Cardiovascular: No chest pain, No palpitations Abdomen: No pain, No nausea Musculoskeletal: No joint pain, No muscle pain Genitourinary - Female: No dysuria, No urinary incontinence Neurologic: No memory loss, No weakness, No numbness/tingling, No vertigo Psychiatric: + depression symptoms, + anxiety Endocrine: + fatigue Hematologic / Lymphatic: No abnormal bleeding/bruising Integumentary: No rash Allergic / Immunologic: No hives Physical Exam Vital Signs (Past 24 Hrs): Date Time Temp Pulse Resp B/P (MAP) Pulse Ox O2 Delivery O2 Flow Rate FiO2 04/07/17 08:00 Room Air 04/07/17 07:32 36.7 60 16 119/65 (83) 95 Room Air 04/07/17 04:00 Room Air 04/07/17 04:00 36.7 60 12 102/59 (73) 93 04/06/17 23:50 Room Air 04/06/17 23:35 36.4 60 18 145/78 (100) 92 Room Air 04/06/17 22:05 58 18 162/74 94 Room Air 04/06/17 19:13 57 04/06/17 18:45 63 16 158/65 04/06/17 16:56 36.4 60 20 172/84 97 Room Air The patient is right-handed. The patient is awake and alert. Speech is normal without aphasia or dysarthria. Mentation and thought processes are intact with orientation and normal fund of knowledge. Mood and affect are normal and appropriate. Appearance and grooming are normal. The discs are sharp with positive venous pulsations bilaterally, however the right is easier to visualized in the left (only because of movement). There are no exudates, hemorrhages, or blood vessel changes seen. Pupils are 3mm bilaterally and reactive to light. Extraocular eye muscles are intact without nystagmus. Visual acuity and visual houser seem normal grossly to confrontation. There are no deficits to sensation of the face bilaterally. Corneal reflexes are positive bilaterally. Facial strength and symmetry is normal bilaterally. Hearing seems intact grossly to voice and finger rub. Palate moves well without asymmetry. There is normal sternocleidomastoid and trapezius strength bilaterally. Tongue is midline with good strength bilaterally. Neck is with full range of motion without discomfort. There are no cervical bruits. There are no cranial or ocular bruits. Heart is without murmur. Cervical spinous processes and paraspinal muscles are mildly tender without significant spasm. Thoracic and lumbar spine are nontender to palpation. Gait not tested but stance sitting up in bed is normal. With outstretched arms there is no drift. There are no resting, postural, or action tremors. There is no ataxia with [id number] testing. There is good facility in the hands. There are no abnormal involuntary movements noted. Motor strength is 5/5 diffusely in the arms bilaterally including deltoids, biceps, brachioradialis, wrist flexors and extensors, personal finance instructor, and intrinsic hand muscles. Motor strength is 5/5 diffusely in the legs bilaterally including hip flexors, quadriceps, hamstring, gastrocnemius, tibialis anterior, tibialis posterior, and peroneii muscles bilaterally. Toe extensors are normal and there is good bulk in the extensor digitorum brevis muscle bilaterally. The limbs have good tone without rigidity or spasticity, and there is no atrophy noted. Muscle bulk is normal, there is no tenderness, no myotonia noted to percussion, and no fasciculations seen. Sensory examination is intact to pin and touch throughout all four limbs. Reflexes are 2/4 in the biceps, triceps, brachioradialis, and quadriceps tendons bilaterally. Achilles tendon reflexes are trace bilaterally. Toes are downgoing with plantar stimulation bilaterally. Peripheral pulses are present and of normal quality distally in all four limbs. There is no peripheral edema noted. Laboratory Results Past 24 Hours: 04/07/17 06:52 Red Blood Count 4.38, Mean Corpuscular Volume 91.3, Mean Corpuscular Hemoglobin 31.5, Mean Corpuscular Hemoglobin Concent 34.5, Mean Platelet Volume 9.3, Neutrophils (%) (Auto) 62.1, Lymphocytes (%) (Auto) 21.0, Monocytes (%) (Auto) 10.2, Eosinophils (%) (Auto) 5.4, Basophils (%) (Auto) 1.1, Neutrophils # (Auto ) 5.63, Lymphocytes # (Auto) 1.90, Monocytes # (Auto) 0.92, Eosinophils # (Auto ) 0.49, Basophils # (Auto) 0.10 04/07/17 06:52 Test 04/06/17 17:15 04/06/17 23:50 04/07/17 06:52 Echinocytes 1+ Peripheral Blood Smear Path Consult SMEAR REVIEWED BY__PATH__. Erythrocyte Sedimentation Rate 10 mm/hr (0-21) Prothrombin Time 10.7 SECONDS (9.0-12.0) Prothromb Time International Ratio 1.0 (0.9-1.1) Activated Partial Thromboplast Time 30.3 SECONDS (21.0-31.0) Partial Thromboplastin Ratio 1.2 Urine Color YELLOW Urine Appearance CLEAR (CLEAR) Urine pH 6.0 (4.5-7.5) Urine Specific [place] 1.016 (1.000-1.030) Urine Protein NEG (NEG) Urine Glucose (UA) NEG (NEG) Urine Ketones NEG (NEG) Urine Occult Blood NEG (NEG) Urine Nitrite NEG (NEG) Urine Bilirubin NEG (NEG) Urine Urobilinogen NEG (NEG) Urine Leukocyte Esterase SMALL (NEG) Urine WBC (Auto) 1-5 /hpf (0-5) Urine RBC (Auto) 0-4 /hpf (0-4) Urine Hyaline Casts (Auto) 0 /lpf (0-5) Urine Epithelial Cells (Auto) 0-5 /lpf (0-5) Urine Bacteria (Auto) NEG (NEG) Magnesium Level 2.2 mg/dl (1.8-2.4) Total Bilirubin 0.4 mg/dl (0.2-1) Direct Bilirubin 0.1 mg/dl (0-0.2) Aspartate Amino Transf (AST/SGOT) 40 U/L (15-37) Alanine Aminotransferase (ALT/SGPT) 51 U/L (12-78) Alkaline Phosphatase 79 U/L (45-117) Total Creatine Kinase 100 U/L (26-192) Creatine Kinase MB 1.2 ng/ml (0.5-3.6) Creatine Kinase MB Ratio 1.2 (0-3.0) Troponin I < 0.015 ng/ml (0-0.045) Total Protein 8.2 gm/dl (6.4-8.2) Albumin 4.0 gm/dl (3.4-5.0) Thyroid Stimulating Hormone (TSH) 2.080 uIu/ml (0.300-4.500) White Blood Count 9.06 K/uL (4.8-10.8) Red Blood Count 4.38 M/uL (4.2-5.4) Hemoglobin 13.8 g/dL (12.0-16.0) Hematocrit 40.0 % (37-47) Mean Corpuscular Volume 91.3 fL (80-100) Mean Corpuscular Hemoglobin 31.5 pg (25-34) Mean Corpuscular Hemoglobin Concent 34.5 g/dl (32-36) Platelet Count 833 K/uL (130-400) Mean Platelet Volume 9.3 fL (7.4-10.4) Neutrophils (%) (Auto) 62.1 % Lymphocytes (%) (Auto) 21.0 % Monocytes (%) (Auto) 10.2 % Eosinophils (%) (Auto) 5.4 % Basophils (%) (Auto) 1.1 % Neutrophils # (Auto) 5.63 K/uL (1.4-6.5) Lymphocytes # (Auto) 1.90 K/uL (1.2-3.4) Monocytes # (Auto) 0.92 K/uL (0.11-0.59) Eosinophils # (Auto) 0.49 K/uL (0-0.5) Basophils # (Auto) 0.10 K/uL (0-0.2) RDW Standard Deviation 51.2 fL (36.4-46.3) RDW Coefficient of Variation 15.2 % (11.5-14.5) Immature Granulocyte % (Auto) 0.2 % Immature Granulocyte # (Auto) 0.02 K/uL (0.00-0.02) Anion Gap 6.0 mmol/L (3-11) Est Creatinine Clear Calc Drug Dose 58.6 ml/min Estimated GFR () 89.9 Estimated GFR (Non- 77.6 BUN/Creatinine Ratio 11.1 (10-20) Calcium Level 8.8 mg/dl (8.5-10.1) Impression 1. Acute onset left monocular blurry vision. This does not have a clinical picture or time frame consistent with amaurosis fugax, although a small stroke to the left eye cannot entirely be excluded. Her vision is essentially back to baseline currently. She has no signs of optic neuritis on exam The normal sed rate speaks against an active arteritis or other rheumatologic/ immunologic syndrome. Neurologic examination is otherwise unremarkable with no focal signs, meningeal signs, or encephalopathy. Although she had a headache this was her typical headache and she has been having this chronically on a daily basis for the better part of a year. 2. Headaches. These are nonspecific and are likely closer to muscle tension than migraine. Neck pain could drive these headaches as well as her mood. There is no sign of acute infection or inflammation 3. Significant anxiety and depressive disorder. This is chronic and likely not helped with her current medication regimen. 4. Chronic fatigue which could be multifactorial in origin, including mood, chronic headaches, or other. 5. Thrombocythemia of uncertain origin Plan 1. Awaiting MRI of the brain. 2. The add Lyme antibody, B12, TSH, and vitamin D if not already done 3. Consider increasing sertraline to 50 milligrams each evening for 2 weeks then increasing to 100 milligrams each evening as needed This can be done as an outpatient. Although it is not my 1st choice for headache, if her depression is helping to drive her headaches, then treating the depression may help the headaches. 4. Headache control will be an outpatient issue 5. Consider ophthalmology consultation, which also could be done as an outpatient if not available inhouse
[2017-04-07] MEDS ORDERED: CYANOCOBALAMIN 500 MCG TAB (VIT B-12) PO SCH (09:00)
[2017-04-07] MEDS ORDERED: MAGNESIUM OXIDE 400 MG TAB PO SCH (09:00)
[2017-04-07] MEDS ORDERED: CHOLECALCIFEROL 1000 INTER.UNIT TAB PO SCH (09:00)
[2017-04-07] MEDS ORDERED: BuPROPion XL 150 MG TABCR PO SCH (09:00)
[2017-04-07] MEDS ORDERED: ENOXAPARIN 40 MG/0.4 ML SYR SC SCH (09:00)
[2017-04-07] MEDS ORDERED: AMLODIPINE BESYLATE 5 MG TAB PO SCH (09:00)
[2017-04-07 11:48] VITALS: BP 121/75; PULSE 54; TEMP 36.3; O2SAT 96
--- NOTE | 2017-04-07 13:11 | DIAGNOSTIC IMAGING REPORT ---
BRAIN COMBO HISTORY: 77 years-old Female loss of vision left eye, right sided headaches acute right-sided headache COMPARISON: Brain MR 02/12/2015, head CT 04/06/2017 TECHNIQUE: Multiplanar multisequence MRI the brain was obtained utilizing 7 mL Gadavist FINDINGS: No restricted diffusion to suggest acute ischemia. The midline structures including the corpus callosum, brainstem, optic chiasm, pituitary and pineal glands are unremarkable in the sagittal T1 sequence. No cerebellar tonsillar herniation. The coronal T2 FLAIR images are mildly motion degraded. No acute intracranial hemorrhage, midline shift, abnormal extra-axial collections or hydrocephalus. There is mild cerebral atrophy redemonstrated. Patchy areas of increased T2/FLAIR signal within the periventricular and subcortical white matter of the cerebral hemispheres bilaterally suggests chronic microvascular ischemic changes, slightly progressed from comparison study 02/12/2015. No abnormal enhancement identified. No intracranial mass. Major flow voids at the level of the skull base appear patent. Orbits are unremarkable. Mastoid air cells are clear. Mild mucosal thickening of the ethmoid air cells. IMPRESSION: 1. No acute intracranial abnormality. No acute ischemia, hemorrhage or abnormal enhancement. 2. Atrophy with mildly progressed chronic microvascular ischemic changes from comparison study 02/12/2015. 3. Mild ethmoid sinus disease. The above report was generated using voice recognition software. It may contain grammatical, syntax or spelling errors. Electronically signed by: Jaswant Mahan M.D. 04/07/2017 1:10 PM Dictated Date/Time: 04/07/2017 1:04 PM
--- NOTE | 2017-04-07 15:38 | Oncology Consultation ---
Oncology/Heme Consultation Date of Consultation: Apr 07, 2017. Attending Physician: Delvis Pena D.O. Reason for Consultation: Ms. Estrada is a 77 year old woman with a history of History of Present Illness Ms. Estrada is a 77 year old woman with a history of hypertension, hyperlipidemia , and PUD related to NSAID use. She has complained of mild constitutional symptoms, including changes in mood and headaches, for several months. She presents during this hospitalization with acute loss of vision in her left eye. She denies any severe headaches or other focal neurologic signs. Her vision is starting to improve, though it is still blurry. She denies any other thrombotic symptoms. She denies fevers, infectious symptoms, rashes, joint swelling, or severe pain. She denies any eye pain or tenderness. Past Medical/Surgical History Medical Problems: (1) Amaurosis fugax Status: Acute Social History Smoking Status: Never Smoker Smokeless Tobacco Use: No Alcohol Use: none Drug Use: none Marital Status: Housing Status: lives with family Occupation Status: retired Allergies Coded Allergies: Codeine (Unverified Allergy, Unknown, UNKNOWN, 04/06/17) Hydrochlorothiazide (Verified Allergy, Unknown, SHORTNESS OF BREATH, ) Lisinopril (Unverified Adverse Reaction, Severe, COUGHING, 04/06/17) Quinapril (Unverified Adverse Reaction, Severe, COUGHING, 04/06/17) Home Medications Scheduled Amlodipine (Norvasc), 5 MG PO DAILY Atenolol (Tenormin), 100 MG PO QAM Atorvastatin (Lipitor), 40 MG PO HS Bupropion HCl (Bupropion HCl Xl), 150 MG PO QAM Cholecalciferol (Vitamin D), 6,000 UNITS PO DAILY Cyanocobalamin (Vitamin B-12), 1,000 MCG DAILY Magnesium (Magnesium), 250 MG PO DAILY Sertraline (Zoloft), 25-50 MG PO HS Scheduled PRN Ibuprofen (Motrin), 800 MG PO QID PRN for Pain Lorazepam (Ativan), 0.5 MG PO BID PRN for Anxiety Topiramate (Topamax), 25 MG PO HS PRN for Migraine Current Inpatient Medications Current Inpatient Medications Medications (Trade) Dose Ordered Sig/Antoinette Route Start Time Stop Time Status Last Admin Dose Admin Enoxaparin Sodium (Lovenox Inj) 40 mg Q24H SC 04/07/17 09:00 05/07/17 08:59 04/07/17 07:56 40 MG Acetaminophen (Tylenol Tab) 650 mg Q4H PRN PO 04/06/17 21:15 05/06/17 21:14 04/07/17 06:07 650 MG Ondansetron HCl (Zofran Inj) 4 mg Q6H PRN IV 04/06/17 21:15 05/06/17 21:14 Amlodipine Besylate (Norvasc Tab) 5 mg DAILY PO 04/07/17 09:00 05/07/17 08:59 04/07/17 07:55 5 MG Atenolol (Tenormin Tab) 100 mg QAM PO 04/07/17 09:00 05/07/17 08:59 04/07/17 07:55 100 MG Atorvastatin Calcium (Lipitor Tab) 40 mg HS PO 04/07/17 21:00 05/07/17 20:59 Bupropion HCl (Wellbutrin-Xl Tab) 150 mg QAM PO 04/07/17 09:00 05/07/17 08:59 04/07/17 07:54 150 MG Lorazepam (Ativan Tab) 0.5 mg BID PRN PO 04/06/17 21:15 05/06/17 21:14 04/07/17 00:16 0.5 MG Sertraline HCl (Zoloft Tab) 25 mg HS PO 04/07/17 21:00 05/07/17 20:59 Cholecalciferol (Vitamin D Tab) 2,000 inter.unit QAM PO 04/07/17 09:00 05/07/17 08:59 04/07/17 07:55 2,000 INTER.UNIT Cyanocobalamin (Vitamin B-12 Tab) 1,000 mcg QAM PO 04/07/17 09:00 05/07/17 08:59 04/07/17 07:56 1,000 MCG Magnesium Oxide (Mag-Ox Tab) 400 mg QAM PO 04/07/17 09:00 05/07/17 08:59 04/07/17 07:55 400 MG Miscellaneous Information (Pharmacist Discharge Med Rec Consult) 1 ea UD PRN N/A 04/06/17 21:15 05/06/17 21:14 Sodium Chloride 1,000 ml @ 100 mls/hr Q10H IV 04/06/17 23:45 05/06/17 23:44 04/07/17 08:37 100 MLS/HR Gadobutrol (Gadavist) 7 mmol UD PRN IV 04/06/17 23:30 04/10/17 23:29 Review of Systems Constitutional: + fatigue, No fever, No chills Eyes: + worsening of vision ENT: No hearing loss, No unusual epistaxis Respiratory: No cough, No shortness of breath Cardiovascular: No chest pain, No edema Abdomen: No pain, No nausea, No vomiting Musculoskeletal: No joint pain, No muscle pain Genitourinary - Female: No dysuria, No hematuria Integumentary: No rash, No itch Physical Exam Date Time Temp Pulse Resp B/P (MAP) Pulse Ox O2 Delivery O2 Flow Rate FiO2 04/07/17 12:00 Room Air 04/07/17 11:48 36.3 54 16 121/75 (90) 96 Room Air 04/07/17 08:00 Room Air 04/07/17 07:32 36.7 60 16 119/65 (83) 95 Room Air 04/07/17 04:00 Room Air 04/07/17 04:00 36.7 60 12 102/59 (73) 93 04/06/17 23:50 Room Air 04/06/17 23:35 36.4 60 18 145/78 (100) 92 Room Air 04/06/17 22:05 58 18 162/74 94 Room Air 04/06/17 19:13 57 04/06/17 18:45 63 16 158/65 04/06/17 16:56 36.4 60 20 172/84 97 Room Air General Appearance: WD/WN, no apparent distress Eyes: PERRL, EOMI ENT: pharynx normal Respiratory/Chest: lungs clear Cardiovascular: regular rate, rhythm Abdomen/GI: non tender, soft, no organomegaly Extremities/Musculoskelatal: no pedal edema Neurologic/Psych: election judge II-XII nml as tested, alert, oriented x 3 Skin: no rash Laboratory Results Last 24 Hours Test 04/06/17 17:15 04/06/17 23:50 04/07/17 06:52 White Blood Count 12.18 K/uL 9.06 K/uL Red Blood Count 4.70 M/uL 4.38 M/uL Hemoglobin 15.3 g/dL 13.8 g/dL Hematocrit 42.6 % 40.0 % Mean Corpuscular Volume 90.6 fL 91.3 fL Mean Corpuscular Hemoglobin 32.6 pg 31.5 pg Mean Corpuscular Hemoglobin Concent 35.9 g/dl 34.5 g/dl Platelet Count 858 K/uL 833 K/uL Mean Platelet Volume 9.3 fL 9.3 fL Neutrophils (%) (Auto) 72.2 % 62.1 % Lymphocytes (%) (Auto) 14.1 % 21.0 % Monocytes (%) (Auto) 8.0 % 10.2 % Eosinophils (%) (Auto) 4.7 % 5.4 % Basophils (%) (Auto) 0.8 % 1.1 % Neutrophils # (Auto) 8.79 K/uL 5.63 K/uL Lymphocytes # (Auto) 1.72 K/uL 1.90 K/uL Monocytes # (Auto) 0.97 K/uL 0.92 K/uL Eosinophils # (Auto) 0.57 K/uL 0.49 K/uL Basophils # (Auto) 0.10 K/uL 0.10 K/uL RDW Standard Deviation 50.7 fL 51.2 fL RDW Coefficient of Variation 15.2 % 15.2 % Immature Granulocyte % (Auto) 0.2 % 0.2 % Immature Granulocyte # (Auto) 0.03 K/uL 0.02 K/uL Echinocytes 1+ Peripheral Blood Smear Path Consult SMEAR REVIEWED BY__PATH__. Erythrocyte Sedimentation Rate 10 mm/hr Prothrombin Time 10.7 SECONDS Prothromb Time International Ratio 1.0 Activated Partial Thromboplast Time 30.3 SECONDS Partial Thromboplastin Ratio 1.2 Urine Color YELLOW Urine Appearance CLEAR Urine pH 6.0 Urine Specific [place] 1.016 Urine Protein NEG Urine Glucose (UA) NEG Urine Ketones NEG Urine Occult Blood NEG Urine Nitrite NEG Urine Bilirubin NEG Urine Urobilinogen NEG Urine Leukocyte Esterase SMALL Urine WBC (Auto) 1-5 /hpf Urine RBC (Auto) 0-4 /hpf Urine Hyaline Casts (Auto) 0 /lpf Urine Epithelial Cells (Auto) 0-5 /lpf Urine Bacteria (Auto) NEG Sodium Level 135 mmol/L 140 mmol/L Potassium Level 3.7 mmol/L 3.7 mmol/L Chloride Level 102 mmol/L 108 mmol/L Carbon Dioxide Level 26 mmol/L 26 mmol/L Anion Gap 7.0 mmol/L 6.0 mmol/L Blood Urea Nitrogen 9 mg/dl 8 mg/dl Creatinine 0.85 mg/dl 0.74 mg/dl Est Creatinine Clear Calc Drug Dose 51.5 ml/min 58.6 ml/min Estimated GFR () 76.1 89.9 Estimated GFR (Non- 65.6 77.6 BUN/Creatinine Ratio 10.5 11.1 Random Glucose 88 mg/dl 92 mg/dl Calcium Level 9.4 mg/dl 8.8 mg/dl Magnesium Level 2.2 mg/dl Total Bilirubin 0.4 mg/dl Direct Bilirubin 0.1 mg/dl Aspartate Amino Transf (AST/SGOT) 40 U/L Alanine Aminotransferase (ALT/SGPT) 51 U/L Alkaline Phosphatase 79 U/L Total Creatine Kinase 100 U/L Creatine Kinase MB 1.2 ng/ml Creatine Kinase MB Ratio 1.2 Troponin I < 0.015 ng/ml Total Protein 8.2 gm/dl Albumin 4.0 gm/dl Thyroid Stimulating Hormone (TSH) 2.080 uIu/ml Assessment & Plan Ms. Estrada presented with acute onset of left eye vision loss which is now slowly improving. She also has a markedly elevated platelet count. 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 She does not appear to have any disorders that are associated with secondary thrombocytosis, but if her genetic testing for ET is negative, I would consider a rheumatologic workup as a next step. For now, I would start her on aspirin 81 mg daily and, for the time being, Hydrea 500 mg BID. 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
[2017-04-07 16:15] VITALS: BP 130/66; PULSE 87; TEMP 36.5; O2SAT 99
[2017-04-07] MEDS ORDERED: ZNT150 PO (16:20)
[2017-04-07] MEDS ORDERED: ASPEC81 PO (16:20)
[2017-04-07] MEDS ORDERED: HYD500 PO (16:20)
--- NOTE | 2017-04-07 16:51 | Discharge Instructions ---
Discharge Instructions Date of Service Apr 07, 2017. Admission Reason for Admission: Diarrhea, Headache, Vomiting, Sudden Vision Loss Discharge Discharge Diagnosis / Problem: Blurry vision Discharge Goals Goal(s): Decrease discomfort Activity Recommendations Activity Limitations: resume your previous activity . Instructions / Follow-Up Instructions / Follow-Up You were admitted to [facility] because of blurry vision in your left eye. You had a CT scan of your brain and an ultrasound to look at the arteries in your neck, both of which were normal, as well as an MRI to look at your brain in more detail, which was also normal. Due to the fact that your blurry vision is not an emergent case, it is safe for you to be discharged, and be further worked up in the outpatient setting by your eye doctor. If you are unable to reach your eye doctor, please call our offices at [phone] and we will be happy to help you set up an appointment. While you were here, we also discovered that your platelets are higher than normal. The laborer egg producing farm recommended that you begin a daily aspirin, zantac to protect your stomach lining from acid production caused by the aspirin, and a medication called hydroxyurea which lowers your platelets levels. You can follow up with your primary care doctor to monitor your platelet levels. You have been under a great deal of stress recently, and we recommend you continue taking your antidepressants, as well as keeping up with your other coping mechanisms, such as spending time with family and loved ones, getting out of the house, and talking to others about your feelings. Current Hospital Diet Patient's current hospital diet: Regular Diet Discharge Diet Recommended Diet: Regular Diet Pending Studies Studies pending at discharge: no Laboratory Results Lipid Panel Test 03/27/17 10:49 Range/Units Triglycerides Level 104 0-150 mg/dl Cholesterol Level 146 0-200 mg/dl HDL Cholesterol 53 mg/dl Cholesterol/HDL Ratio 2.8 LDL Cholesterol, Calculated 72 mg/dl Medical Emergencies . Who to Call and When: Medical Emergencies: If at any time you feel your situation is an emergency, please call 911 immediately. . Non-Emergent Contact Non-Emergency issues call your: Primary Care Provider . . "Provider Documentation" section prepared by Pastora Guaman. . VTE Core Measure Inpt VTE Proph given/why not?: Enoxaparin (Lovenox)KAUR, TKANCHAN [facility]
[2017-04-07 17:04] VITALS: BP 130/66; PULSE 87; TEMP 36.5; O2SAT 99
--- NOTE | 2017-04-07 17:09 | Discharge Summary ---
Discharge Summary Date of Service Apr 07, 2017. (Pastora Guaman M.D.) Discharge Summary Admission Date: Apr 06, 2017 at 21:36 Discharge Date: Apr 07, 2017 Discharge Disposition: Home Principal Diagnosis: Blurry Vision Immunizations: Have You Had Influenza Vaccine: N/A Influenza Vaccine Date: Apr 10, 2010 History of Tetanus Vaccine?: Unknown History of Pneumococcal: Yes Pneumococcal Date: Aug 12, 2010 History of Hepatitis B Vaccine: Yes Hepatitis Immunization Date: Aug 11, 1994 (Pastora Guaman M.D.) Medication Reconciliation New Medications: Aspirin (Aspirin EC Low Dose) 81 Mg Ectab 81 MG PO QAM, #30 TABS Hydroxyurea (Hydroxyurea) 500 Mg Cap 500 MG PO BID, #60 CAP Ranitidine HCl (Ranitidine HCl) 150 Mg Tab 150 MG PO BID, #60 TAB Continued Medications: Amlodipine (Norvasc) 5 Mg Tab 5 MG PO DAILY, TAB Atenolol (Tenormin) 100 Mg Tab 100 MG PO QAM, TAB Atorvastatin (Lipitor) 40 Mg Tab 40 MG PO HS, TAB Bupropion HCl (Bupropion HCl Xl) 150 Mg Tab 150 MG PO QAM Cholecalciferol (Vitamin D) 2,000 Unit Cap 6000 UNITS PO DAILY Cyanocobalamin (Vitamin B-12) 1,000 Mcg Sub 1000 MCG DAILY Ibuprofen (Motrin) 800 Mg Tab 800 MG PO QID PRN for Pain, TAB Lorazepam (Ativan) 0.5 Mg Tab 0.5 MG PO BID PRN for Anxiety, TAB Magnesium (Magnesium) 250 Mg Tab 250 MG PO DAILY Sertraline (Zoloft) 50 Mg Tab 25-50 MG PO HS, TAB Topiramate (Topamax) 25 Mg Tab 25 MG PO HS PRN for Migraine, TAB Discharge Exam Ms. Estrada reports that she feels fatigued and depressed today, and has been feeling this way for several months. She states that her blurry vision has improved since yesterday. She denies a headache, weakness in any of her limbs, trouble with speech, double vision or gait difficulties. Review of Systems: Constitutional: + fatigue, No fever, No chills, No sweats Eyes: No eye pain, No redness, No discharge, No diplopia Respiratory: No cough Cardiovascular: No chest pain Abdomen: + diarrhea, No pain, No nausea, No vomiting Psychiatric: + depression symptoms (Pastora Guaman M.D.) Hospital Course Ms. Estrada was admitted to [facility] because of blurry vision in her left eye. Her stroke workup, including CT and MRI of the brain, and carotid artery ultrasound were negative. Her ESR was also not elevated. Of note, her platelet count was elevated at 858. She was seen by both the neurology and hematology teams. Due to the fact that her visual disturbance improved and was non-emergent, she was discharged and told to follow up with her pool table operator in the outpatient setting. She was also started on a daily aspirin and hydroxyurea until her thrombocytosis can be worked up further in the outpatient setting. She was also prescribed zantac given her GI history. She was teary in the hospital, as she reports she has been under a great deal of stress lately with her 's recent diagnosis. We discussed coping mechanisms, continuing her antidepressants and following up with her primary care physician. Total Time Spent: Less than 30 minutes This includes examination of the patient, discharge planning, medication reconciliation, and communication with other providers. (Pastora Guaman M.D.) Resident Physician Supervision Note: I interviewed and examined the patient. Discussed with Dr. Guaman and agree with findings and plan as documented in the note. Any exceptions or clarifications are listed here: None Documented By: Delvis Pena feeling better vision clearing. extensive d/w R1, heme/onc and then pt/dtr wants to go home feels safe going home vitlas noted nad breathing unllabored no neuro deficits noted, tearful at times blurred vision/etc - migrainous vs ET related - safe for home on asa, to have eye doc eval this week - she notes that it should be no problem to set up but gave # for us to help arrange if she can't set it up thrombocytosis - reactive vs essential - see heme/onc note, while studies pending, asa (w zantac since prior stomach issues w asa), hydrea. heme/onc ~ 2wks depression/situational stress - would be clear trigger for migraine. counselled extensively, continue family support/distractions, continue current meds stable for home Total Time Spent: Greater than 30 minutes (Delvis Pena D.O.) Discharge Instructions Please refer to the electronic Patient Visit Report (Discharge Instructions) for additional information. (Pastora Guaman M.D.) Additional Copies To Miguel Palacio M.D.
[2017-04-07] MEDS ORDERED: RANITIDINE HCL 150 MG TAB PO SCH (21:00)
[2017-04-07] MEDS ORDERED: SERTRALINE HCL 50 MG TAB PO SCH (21:00)
[2017-04-07] MEDS ORDERED: HYDROXYUREA 500 MG CAP PO SCH (21:00)
[2017-04-07] MEDS ORDERED: ATORVASTATIN 20 MG TAB PO SCH (21:00)
[2017-04-08] MEDS ORDERED: ASPIRIN 81 MG ECTAB PO SCH (09:00)
[2017-04-11 04:33] LABS: B2 GLYCOPROTEIN IGA <9 SAU (<=20); B2 GLYCOPROTEIN IGG <9 SGU (<=20); B2 GLYCOPROTEIN IGM <9 SMU (<=20); DRVVT MIX INTERPRETAION Not Indicated; LAC PTT SCREEN 43 sec (<=40); LUPUS ANTICOAGULANT** TC36573X Negative (Negative); PHOSPHATIDYLSERINE IGA <20 U/mL (<20); PHOSPHATIDYLSERINE IGG <10 U/mL (<10); PHOSPHATIDYLSERINE IGM <25 U/mL (<25)
== END 2017-04-07 17:55 | disposition home or self-care (01) | DRG 125 ==
LOC: C.EDB 16:43 → C.MED 21:36 → ENRESERV 21:59
PROVIDERS: ADMIT Hospitalist; ATTEND Family Medicine
DX: H53.8 Other visual disturbances (principal); I10 Essential (primary) hypertension; Z85.528 Personal history of other malignant neoplasm of kidney; G43.909 Migraine, unspecified, not intractable, without status migrainosus; F41.1 Generalized anxiety disorder; Z63.79 Other stressful life events affecting family and household; E78.5 Hyperlipidemia, unspecified; D47.3 Essential (hemorrhagic) thrombocythemia

== ENCOUNTER → 2017-04-17 | Outpatient (CLI) | payer OTHER ==
[~2017-04-17] MED LIST changes: +AMLO-110 PO; +ASPEC81 PO; +ATOR-24 PO; +BUPR150T6 PO; +HYD500 PO; +IBUP-1428 PO; +LORA-741 PO; +MAGN250T9 PO; -NYSS5 PO; -PRAV20TA PO; +SERT50TA PO; +TOPI25TA10 PO; +ZNT150 PO
[2017-04-17 18:03] LABS: BASO % 1.6 %; BASO ABS # 0.12 K/uL (0-0.2); COMPLETE YES; EOS % 4.2 %; HEMATOCRIT 40.9 % (37-47); IG% 0.3 %; LYMPH % 17.9 %; LYMPH ABS # 1.38 K/uL (1.2-3.4); MEAN CELL VOLUME 92.5 fL (80-100); MEAN CORPUSCULAR HEMOGLOBIN 31.4 pg (25-34); MEAN PLATELET VOLUME 9.2 fL (7.4-10.4); MONO % 7.3 %; NEUT % 68.7 %; PLATELET COUNT 771 K/uL (130-400); RED BLOOD COUNT 4.42 M/uL (4.2-5.4); WHITE BLOOD COUNT 7.71 K/uL (4.8-10.8)
== END | disposition home or self-care (01) ==
LOC: C.LABMFLN 12:42
PROVIDERS: ATTEND Family Medicine
DX: D47.3 Essential (hemorrhagic) thrombocythemia (principal)

== ENCOUNTER → 2017-05-15 | Outpatient (CLI) | payer OTHER ==
--- NOTE | 2017-05-16 07:43 | MAMMOGRAPHY REPORT ---
BILATERAL DIGITAL SCREENING MAMMOGRAM WITH CAD: 05/15/2017 CLINICAL HISTORY: Routine screening. Patient has no complaints. TECHNIQUE: Bilateral CC and MLO views were obtained. Current study was also evaluated with a Compute r Aided Detection (CAD) system. COMPARISON: Comparison is made to exams dated: 05/08/2016 mammogram, 05/04/2015 mammogram - [facility], 10/15/2013 mammogram, 03/22/2012 mammogram, 09/21/2010 mammogram, and 04/19/2010 [facility]. BREAST COMPOSITION: There are scattered areas of fibroglandular density in both breasts. FINDINGS: There are stable microcalcifications and coarse calcifications in each upper outer quadran t. No suspicious mass, architectural distortion or cluster of new, suspicious microcalcifications is seen. IMPRESSION: ACR BI-RADS CATEGORY 1: NEGATIVE There is no mammographic evidence of malignancy. A 1 year screening mammogram is recommended. The pa tient will receive written notification of the results. Approximately 10% of breast cancers are not detected with mammography. A negative mammographic report should not delay biopsy if a clinically suggestive mass is present. Paige Price M.D. ay/:05/15/2017 15:16:23 Jogger Operator: Mariam REYES(Trey)(Armand), [facility] letter sent: Normal 1/2 BI-RADS Code: ACR BI-RADS Category 1: Negative
== END | disposition home or self-care (01) ==
LOC: C.MAMM 10:33
PROVIDERS: ATTEND Family Medicine
DX: Z12.31 Encounter for screening mammogram for malignant neoplasm of breast (principal)

== ENCOUNTER → 2017-06-07 | Outpatient (CLI) | payer OTHER ==
[2017-06-07 17:59] LABS: BASO % 1.6 %; EOS % 2.8 %; HEMATOCRIT 37.8 % (37-47); IG% 0.2 %; LYMPH % 22.5 %; LYMPH ABS # 1.38 K/uL (1.2-3.4); MEAN CELL VOLUME 100.8 fL (80-100); MEAN CORPUSCULAR HEMOGLOBIN 33.9 pg (25-34); MEAN CORPUSCULAR HGB CONC 33.6 g/dl (32-36); MEAN PLATELET VOLUME 9.6 fL (7.4-10.4); MONO % 9.9 %; PLATELET COUNT 248 K/uL (130-400); RED BLOOD COUNT 3.75 M/uL (4.2-5.4); WHITE BLOOD COUNT 6.14 K/uL (4.8-10.8)
[2017-06-07 18:09] LABS: ALT/SGPT 31 U/L (12-78); AST/SGOT 21 U/L (15-37); BLOOD UREA NITROGEN 14 mg/dl (7-18); BUN/CREATININE RATIO 18.3 (10-20); CALCIUM 9.1 mg/dl (8.5-10.1); CARBON DIOXIDE 26 mmol/L (21-32); CHLORIDE 103 mmol/L (98-107); CREATININE 0.79 mg/dl (0.60-1.20); GLUCOSE 103 mg/dl (70-99); SODIUM 132 mmol/L (136-145)
[2017-06-07 18:12] LABS: ALB/GLOB RATIO 0.9 (0.9-2); ALKALINE PHOSPHATASE 65 U/L (45-117)
[2017-06-07 18:41] LABS: ANISOCYTOSIS PRESENT; COMPLETE YES
== END | disposition home or self-care (01) ==
LOC: C.LABMFLN 13:34
PROVIDERS: ATTEND Family Medicine
DX: D47.3 Essential (hemorrhagic) thrombocythemia (principal)

== ENCOUNTER → 2017-10-08 | Outpatient (CLI) | payer OTHER ==
[~2017-10-08] MED LIST changes: -ASPEC81 PO; +ASPI-320 PO
[2017-10-08 12:51] LABS: BASO % 1.4 %; BASO ABS # 0.06 K/uL (0-0.2); EOS % 4.3 %; EOS ABS # 0.18 K/uL (0-0.5); HEMATOCRIT 39.3 % (37-47); HEMOGLOBIN 13.3 g/dL (12.0-16.0); IG# 0.01 K/uL (0.00-0.02); LYMPH % 30.9 %; LYMPH ABS # 1.28 K/uL (1.2-3.4); MEAN CORPUSCULAR HEMOGLOBIN 37.9 pg (25-34); MEAN CORPUSCULAR HGB CONC 33.8 g/dl (32-36); MEAN PLATELET VOLUME 9.4 fL (7.4-10.4); MONO % 10.4 %; MONO ABS # 0.43 K/uL (0.11-0.59); NEUT % 52.8 %; NEUT ABS # 2.18 K/uL (1.4-6.5); PLATELET COUNT 303 K/uL (130-400); RED CELL DISTRIBUTION WIDTH CV 12.7 % (11.5-14.5); RED CELL DISTRIBUTION WIDTH SD 51.5 fL (36.4-46.3); WHITE BLOOD COUNT 4.14 K/uL (4.8-10.8)
[2017-10-08 14:02] LABS: ALBUMIN 3.8 gm/dl (3.4-5.0); ALT/SGPT 28 U/L (12-78); BLOOD UREA NITROGEN 14 mg/dl (7-18); CALCIUM 9.1 mg/dl (8.5-10.1); CARBON DIOXIDE 24 mmol/L (21-32); CHOLESTEROL 171 mg/dl (0-200); CREATININE 0.82 mg/dl (0.60-1.20); GLUCOSE 98 mg/dl (70-99); POTASSIUM 4.1 mmol/L (3.5-5.1); SODIUM 135 mmol/L (136-145)
[2017-10-08 14:05] LABS: ALKALINE PHOSPHATASE 60 U/L (45-117); AST/SGOT 23 U/L (15-37); LDL CHOLESTEROL CALCULATED 98 mg/dl; TOTAL PROTEIN 7.6 gm/dl (6.4-8.2)
== END | disposition home or self-care (01) ==
LOC: C.LABMFLN 08:19
PROVIDERS: ATTEND Family Medicine
DX: D47.1 Chronic myeloproliferative disease (principal); I10 Essential (primary) hypertension; E55.9 Vitamin D deficiency, unspecified; D47.3 Essential (hemorrhagic) thrombocythemia; E78.00 Pure hypercholesterolemia, unspecified; E53.8 Deficiency of other specified B group vitamins

== ENCOUNTER → 2018-01-28 | Outpatient (CLI) | payer OTHER ==
[~2018-01-28] MED LIST changes: -AMLO-110 PO; +AMLO5TAB3 PO
== END | disposition home or self-care (01) ==
LOC: C.LABMFLN 07:30
PROVIDERS: ATTEND Family Medicine
DX: R10.32 Left lower quadrant pain (principal)

== ENCOUNTER → 2018-02-06 | Outpatient (CLI) | payer OTHER ==
[2018-02-11 14:14] LABS: FECAL OCCULT BLOOD #1 NEGATIVE (NEGATIVE); FECAL OCCULT BLOOD #2 NEGATIVE (NEGATIVE); FECAL OCCULT BLOOD #3 NEGATIVE (NEGATIVE)
== END | disposition home or self-care (01) ==
LOC: C.LABSPEC 13:25
PROVIDERS: ATTEND Family Medicine
DX: R50.9 Fever, unspecified (principal); R53.82 Chronic fatigue, unspecified

== ENCOUNTER → 2018-02-06 | Outpatient (CLI) | payer OTHER ==
[2018-02-06 18:11] LABS: BASO % 0.9 %; BASO ABS # 0.06 K/uL (0-0.2); EOS % 4.3 %; HEMATOCRIT 42.2 % (37-47); HEMOGLOBIN 14.1 g/dL (12.0-16.0); IG# 0.01 K/uL (0.00-0.02); LYMPH % 18.1 %; LYMPH ABS # 1.27 K/uL (1.2-3.4); MEAN CELL VOLUME 104.5 fL (80-100); MEAN CORPUSCULAR HEMOGLOBIN 34.9 pg (25-34); MEAN CORPUSCULAR HGB CONC 33.4 g/dl (32-36); MEAN PLATELET VOLUME 9.1 fL (7.4-10.4); MONO % 7.1 %; NEUT % 69.5 %; NEUT ABS # 4.89 K/uL (1.4-6.5); PLATELET COUNT 475 K/uL (130-400); RED CELL DISTRIBUTION WIDTH CV 13.7 % (11.5-14.5); RED CELL DISTRIBUTION WIDTH SD 52.5 fL (36.4-46.3); WHITE BLOOD COUNT 7.03 K/uL (4.8-10.8)
[2018-02-06 18:40] LABS: ALKALINE PHOSPHATASE 57 U/L (45-117); ALT/SGPT 84 U/L (12-78); AST/SGOT 71 U/L (15-37); BLOOD UREA NITROGEN 10 mg/dl (7-18); CALCIUM 8.8 mg/dl (8.5-10.1); CARBON DIOXIDE 25 mmol/L (21-32); CREATININE 0.71 mg/dl (0.60-1.20); GLUCOSE 99 mg/dl (70-99); SODIUM 134 mmol/L (136-145); TOTAL PROTEIN 7.7 gm/dl (6.4-8.2)
== END | disposition home or self-care (01) ==
LOC: C.LABMFLN 11:26
PROVIDERS: ATTEND Family Medicine
DX: R50.9 Fever, unspecified (principal); R53.82 Chronic fatigue, unspecified

== ENCOUNTER → 2018-02-14 | Outpatient (CLI) | payer OTHER ==
[2018-02-14 18:18] LABS: BASO % 0.9 %; BASO ABS # 0.05 K/uL (0-0.2); EOS % 2.8 %; EOS ABS # 0.15 K/uL (0-0.5); HEMATOCRIT 39.3 % (37-47); LYMPH ABS # 1.25 K/uL (1.2-3.4); MEAN CELL VOLUME 103.7 fL (80-100); MEAN CORPUSCULAR HEMOGLOBIN 34.3 pg (25-34); MEAN CORPUSCULAR HGB CONC 33.1 g/dl (32-36); MEAN PLATELET VOLUME 9.2 fL (7.4-10.4); MONO % 9.4 %; MONO ABS # 0.51 K/uL (0.11-0.59); NEUT % 63.9 %; NEUT ABS # 3.47 K/uL (1.4-6.5); PLATELET COUNT 470 K/uL (130-400); RED CELL DISTRIBUTION WIDTH CV 14.1 % (11.5-14.5); RED CELL DISTRIBUTION WIDTH SD 53.1 fL (36.4-46.3); WHITE BLOOD COUNT 5.43 K/uL (4.8-10.8)
[2018-02-14 18:34] LABS: ALBUMIN 3.6 gm/dl (3.4-5.0); ALKALINE PHOSPHATASE 50 U/L (45-117); ALT/SGPT 31 U/L (12-78); AST/SGOT 20 U/L (15-37); BLOOD UREA NITROGEN 16 mg/dl (7-18); CALCIUM 8.7 mg/dl (8.5-10.1); CARBON DIOXIDE 25 mmol/L (21-32); CREATININE 0.74 mg/dl (0.60-1.20); GLUCOSE 100 mg/dl (70-99); POTASSIUM 4.3 mmol/L (3.5-5.1); SODIUM 131 mmol/L (136-145); TOTAL PROTEIN 7.4 gm/dl (6.4-8.2)
== END | disposition home or self-care (01) ==
LOC: C.LABMFLN 11:04
PROVIDERS: ATTEND Family Medicine
DX: R53.83 Other fatigue (principal); R74.0 Nonspecific elevation of levels of transaminase and lactic acid dehydrogenase [LDH]; M79.1 Myalgia; R11.0 Nausea; D75.89 Other specified diseases of blood and blood-forming organs

== ENCOUNTER 2020-11-21 09:10 | Inpatient (IN) ==
[2020-11-21] MEDS: SODIUM CHLORIDE 0.9% 1000ML 1,000 ML IV SCH ×2 (10:02→17:13)
[2020-11-21 10:09] LABS: Basophils # (auto) 0.02 K/uL (0-0.2); Basophils % (auto) 0.2 %; Eosinophils # (auto) 0.15 K/uL (0-0.5); Eosinophils % (auto) 1.5 %; Hematocrit (blood only) 42.7 % (37-47); Hemoglobin 14.7 g/dL (12.0-16.0); Immature Granulocytes # (auto) 0.02 K/uL (0.00-0.02); Immature Granulocytes % (auto) 0.2 %; Lymphocytes # (auto) 1.36 K/uL (1.2-3.4); Lymphocytes % (auto) 13.3 %; Mean Corpuscular Hemoglobin 36.5 pg (25-34); Mean Corpuscular Hgb Conc 34.4 g/dL (32-36); Mean Platelet Volume 9.4 fL (7.4-10.4); Monocytes # (auto) 0.71 K/uL (0.11-0.59); Neutrophils # (auto) 7.93 K/uL (1.4-6.5); Neutrophils % (auto) 77.8 %; Platelet Count 403 K/uL (130-400); RDW Coefficient of Variation 14.5 % (11.5-14.5); RDW Standard Deviation 55.5 fL (36.4-46.3); Red Blood Count 4.03 M/uL (4.2-5.4); White Blood Count 10.19 K/uL (4.8-10.8)
[2020-11-21 10:10] LABS: Appearance Urine Clear (Clear); Blood Urine Negative (Negative); Color Urine Dark Yellow; Glucose Urine UA Negative (Negative); Ketones Urine 1+ (Negative); Leukocyte Esterase Urine Negative (Negative); Nitrite Urine Negative (Negative); Protein Urine Negative (Negative); Specific Gravity Urine 1.045 (1.000-1.030); Urobilinogen Urine Negative (Negative); pH Urine 5.5 (4.5-7.5)
[2020-11-21 10:14] LABS: Bilirubin Urine 1+ (Negative)
[2020-11-21 10:30] LABS: Alanine Aminotransferase 28 U/L (12-78); Albumin Level 3.4 gm/dl (3.4-5.0); Aspartate Aminotransferase 18 U/L (15-37); BUN Creatinine Ratio 18.5 (10-20); Blood Urea Nitrogen 15 mg/dl (7-18); Calcium 9.1 mg/dl (8.5-10.1); Carbon Dioxide 23 mmol/L (21-32); Chloride 105 mmol/L (98-107); Est GFR (African American) 81.4 ml/min; Est GFR (Non-African American) 70.2 ml/min; Glucose 128 mg/dl (70-99); Potassium 3.9 mmol/L (3.5-5.1); Sodium 135 mmol/L (136-145)
[2020-11-21 10:33] LABS: Albumin Globulin Ratio 0.9 (0.9-2); Alkaline Phosphatase 48 U/L (45-117); Bilirubin,Total 0.5 mg/dl (0.2-1); Globulin 3.6 gm/dl (2.5-4.0)
[2020-11-21] MEDS ORDERED: cefTRIAXone SODIUM 1,000 MG/50 ML BAG IV STA ×2 (10:40→11:33)
[2020-11-21] MEDS ORDERED: OPTIRAY 320 100ml IV ONE (11:00)
--- NOTE | 2020-11-21 11:19 | CT Scan Report ---
ABDOMEN AND PELVIS CT WITH IV CONTRAST CT DOSE: 353.86 mGy.cm HISTORY: Lower abdominal pain. TECHNIQUE: Multiaxial CT images of the abdomen and pelvis were performed following the use of intrave nous contrast. A dose lowering technique was utilized adhering to the principles of ALARA. COMPARISON STUDY: Abdomen and pelvis CT 07/08/2020. FINDINGS: The lung bases are clear. There is a small hiatus hernia. No pneumoperitoneum. No pneumatos is. No suspicious lytic or blastic osseous lesions. Prior cholecystectomy. There are few subcentimete r hypodense lesions within the left hepatic lobe. These are technically too small to characterize but likely represent cysts. The pancreas, spleen, adrenal glands, and kidneys are unremarkable. The main portal vein is patent. No retroperitoneal lymphadenopathy. Normal caliber abdominal aorta. Moderate bladder wall thickening with adjacent fat stranding. The uterus is surgically absent. Multiple coloni c diverticula. There is questionable mild pericolonic fat stranding at the sigmoid colon. This could be reactive to the adjacent bladder inflammatory change or represent a low-grade colitis/diverticulit is. No evidence for bowel obstruction. The appendix is not identified and reportedly surgically absen t. IMPRESSION: 1. Moderate bladder wall thickening with adjacent fat stranding consistent with a cystitis. Recommend correlation with urinalysis. 2. There is questionable mild pericolonic fat stranding at the sigmoid colon. This could be reactive to the adjacent bladder inflammatory change or represent a low-grade colitis/diverticulitis. ACT 112: Negative or not required by law. Electronically signed by: oJse A Rodríguez M.D. 11/21/2020 11:17 AM
[2020-11-21 12:32] LABS: NT Pro B Type Natriuretic Pept 2402 pg/ml (0-1800); Thyroid Stimulating Hormone 0.949 uIu/ml (0.300-4.500); Troponin I < 0.015 ng/ml (0-0.045)
[2020-11-21] MEDS ORDERED: METOPROLOL TARTRATE 25 MG TAB PO STA (13:29)
--- NOTE | 2020-11-21 13:44 | History & Physical Report ---
Date of Service November 21, 2020 Assessment & Plan (1) Dysrhythmias: As per HPI, patient remains in NSR. She does not have any EKG in the past with atrial fibrilation - This may be the cause of her fatigue lately if she is in paroxysmal afib. Currently, however, she is returned to sinus rhythm - Admit to surveillance system monitor rhythm - Change atenolol to metoprolol 25 mg PO BID- first dose in the EMD as patient reports she did not take her medications this morning - can adjust dose and interval as needed - Lopressor 5 mg IV q2 prn HR >1110 - K ~ 4 mag ~2 - rule out sepsis cause With her recent dental procedure as well as HTN and elevated BNP will obtain ECHO - Blood cultures as well following dentition work and generalized illness feeling (2) UTI (urinary tract infection): patient with symptoms and radiological equivalence, urine analysis negative in the setting of patient on PENV K - will await culture, however will cover with rocephin 1GM IV q24 - follow lactate and other biomarkers - WBC 10, NLR 4.5:1, PCT <0.05, lactate 1.6 (3) HTN (hypertension): As above well controlled goal <140 - Continue amlodipine - Atenolol changed to Metoprolol Tartrate 25 bid (4) Hypercholesterolemia: Continue atorvastatin 40 mg PO (5) Left lower quadrant abdominal pain: As above, continue with Rocephin at this time- CT fat stranding could be related to her bladder infection as well - Patient with colonoscopy in May with diverticulosis in sigmoid - Will add Miralax as well - Follow clinical response - This pain radiates into her groin and upper thigh- and is consistent with her lumbar pain and relief with putting legs up on pillows - no lymphadenopathy (6) Lumbar stenosis: as above- Tylenol for pain --- Neurology from 08/22 recommended baclofen and Neurontin- - Patient does not have Neurontin or baclofen listed on her medication rec, she can not remember taking this or not - she was to be on 100mg TID- will need to verify and add back to her regime - PT/OT can try Lidoderm patch if needed or Voltaren gel (7) Essential thrombocytosis: Continue with her hyrdoxyurea and ASA - with her being on ASA as well as Motrin will add PPI 20 mg daily - (8) GERD (gastroesophageal reflux disease): As above- PPI (9) Generalized anxiety disorder: Continue PRN Ativan for anxiety (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 Patient comes in today for feeling tired, and urinary complaints of burning in her bladder, and left lower pain in her abdomen and groin. Patient had some teeth extracted in [place] for planned dental implants on Sunday. She was placed on oral PenVK. Her urinary symptoms started after that, she does not notice any urethral discomfort, but with bladder discomfort. She also states that she had some chills over the weekend. She had a CT scan of her abdomen and pelvis as well as urine analysis done in the [facility]. During her work up, it was noted that she had some variable HR up to the 130s and review of telemetry does show irregular rhythm and variance of p-wa ves. When I evaluated her, she was in NSR. Her lower abdominal pain and groin pain has been ongoing for the past year and she has been following this with her PCP, urology, and neurology. This has been attributed to her bulging disk and spinal stenosis. She has been taking Motrin for her pain and has been trying to wean off of it. She notes that some of her discomfort in her abdomen is up to wards her stomach as well. She remains on her hydroxyurea and ASA for her thrombocytosis and does not report any further neurological or cardiac symptoms, her platelet count is 400 today. Patient will be admitted for monitoring of her HR and rythm as well as following her for relief of her bladder symptoms and back symptoms. She will be followed on telemetry on PCU. Allergies Allergy/AdvReac Type Severity Reaction Status Date / Time codeine Allergy Unknown UNKNOWN Verified 11/21/20 13:30 hydrochlorothiazide Allergy Unknown SHORTNESS Verified 11/21/20 13:30 OF BREATH lisinopril AdvReac Severe COUGHING Verified 11/21/20 13:30 quinapril AdvReac Severe COUGHING Verified 11/21/20 13:30 buspirone AdvReac Unknown Verified 11/21/20 13:30 Home Medications Medication Instructions Recorded Confirmed Type aspirin 81 mg tablet,delayed 81 mg PO DAILY tab 01/10/19 11/21/20 History release cyanocobalamin (vitamin B-12) 500 1,000 mcg PO DAILY tab 02/05/20 11/21/20 History mcg tablet amlodipine 5 mg tablet 5 mg PO DAILY #90 tab 08/16/20 11/21/20 Rx atenolol 50 mg tablet 50 mg PO DAILY #90 tab 08/16/20 11/21/20 Rx atorvastatin 40 mg tablet 40 mg PO HS #90 tab 08/16/20 11/21/20 Rx cholecalciferol (vitamin D3) 50 2,000 unit PO DAILY #90 cap 09/02/20 11/21/20 History mcg (2,000 unit) capsule hydroxyurea 500 mg capsule 500 mg PO DAILY #60 cap 09/02/20 11/21/20 History ibuprofen 600 mg tablet 600 mg PO QID PRN #120 tab 09/02/20 11/21/20 Rx lorazepam 1 mg tablet 0.5 - 1 mg PO DAILY PRN #90 tab 10/04/20 11/21/20 Rx Past Med/Surg History Medical History Allergic rhinitis 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 Diverticulitis large intestine Elevated transaminase level Essential familial hypercholesterolemia Essential thrombocytosis Generalized anxiety disorder Generalized osteoarthritis GERD (gastroesophageal reflux disease) Groin pain, chronic, left Hearing loss HTN (hypertension) Hypercholesterolemia Incomplete bladder emptying Insomnia Medicare annual wellness visit, subsequent Renal neoplasm Vitamin B12 deficiency Vitamin D deficiency Surgical History History of cataract surgery History of section History of cholecystectomy History of colonoscopy History of esophagogastroduodenoscopy History of hysterectomy History of partial nephrectomy Family History Mother Hypertension Myocardial infarction Stroke Family/Other Hypertension Brother Myocardial infarction Stroke Father Myocardial infarction Denies family history of Ovarian cancer Prostate cancer Breast cancer Colorectal cancer Social History Smoking Status: Never smoker Hx Alcohol Use: Yes Alcohol type: wine Hx Substance Use: No Preferred Language: Jordanian Communication Ability: Effective Visual Impairment: Limited Vp Platforms Required: No Beliefs That Will Affect Care: None marital status: Current Living Situation: Spouse current occupational status: retired Feels Safe at Home: Yes Childhood Exposure to Second-Hand Smoke: Yes caffeine: Yes Dental Care, Regularly: Yes Physical Activity Frequency: Daily Seatbelt Use: always Sunscreen Use: No Review of Systems Review of Systems: REVIEW OF SYSTEMS: Constitutional: (+) chills and fatigue, No fever, sweats Eyes: No diplopia, no worsening or blurred vision ENT: (+) teeth extraction, normal hearing, no trouble swallowing Respiratory: No cough, sputum, dyspnea at rest or on exertion Cardiovascular: No chest pain, tightness or palpitations Abdomen: (+) pain, no nausea, vomiting, diarrhea or constipation Musculoskeletal: (+) joint pain, calf pain, swelling Neurologic: No weakness, numbness/tingling, or balance problems Psychiatric: (+) anxiety, no depression Skin: No rash or itch Physical Exam Physical Exam: PHYSICAL EXAM: General: awake, alert, no apparent distress Head: Normocephalic, atraumatic ENT: PERRL, EOMI, gums where teeth extracted minimal swelling, no drainage or bad taste in patient mouth, no pharyngeal exudate, mucous membranes moist Neuro: AAO x 3, speech clear and appropriate, strength intact bilaterally 5/5, sensation intact and equal all extremities and dermatomes, no pronator drift Chest: equal rise and fall of the chest, no accessory muscle use, no heaves or thrills, Clear to auscultation, on room air, Cardiac: Regular rate and rhythm, telemetry reviewed- NSR with multiple runs of ? afib 100-130, skin warm dry, cap refill <3 seconds, peripheral pulses +2 no JVD, no murmur, no edema GI: NABS x 4 quadrants, soft, nontender to deep and light palpation, no rebound, guarding or tenderness, lymph nodes not enlarged : some discomfort with bladder palpation, Spontaneously voiding, no pain, no CVA tenderness, Extremities: Normal inspection, no peripheral edema or erythema, calfs nontender to palpation Psych: Normal mood and affect Skin: no rash or erythema Results & Data Results & Data ([facility]) Vital Signs (Past 12 Hours) Vital Signs Temp Pulse Pulse Resp BP BP Pulse Ox 11/21/20 11:24 103 H 18 125/61 96 11/21/20 09:16 36.1 C L 93 H 18 95/67 L 97 Laboratory Results Abnormal lab results 11/21/20 11/21/20 11/21/20 Range/Units 09:54 09:54 09:54 RBC 4.03 L (4.2-5.4) M/uL MCV 106.0 H (80-100) fL MCH 36.5 H (25-34) pg RDW Std Deviation 55.5 H (36.4-46.3) fL Plt Count 403 H (130-400) K/uL Neut # (Auto) 7.93 H (1.4-6.5) K/uL [place] # (Auto) 0.71 H (0.11-0.59) K/uL Sodium 135 L (136-145) mmol/L Glucose 128 H (70-99) mg/dl NT-Pro-B Natriuret Pep (0-1800) pg/ml Ur Specific [place] 1.045 H (1.000-1.030) Urine Ketones 1+ H (Negative) Urine Bilirubin 1+ H (Negative) 11/21/20 Range/Units 11:49 RBC (4.2-5.4) M/uL MCV (80-100) fL MCH (25-34) pg RDW Std Deviation (36.4-46.3) fL Plt Count (130-400) K/uL Neut # (Auto) (1.4-6.5) K/uL [place] # (Auto) (0.11-0.59) K/uL Sodium (136-145) mmol/L Glucose (70-99) mg/dl NT-Pro-B Natriuret Pep 2402 H (0-1800) pg/ml Ur Specific [place] (1.000-1.030) Urine Ketones (Negative) Urine Bilirubin (Negative) Diagnostic Findings Abdomen/Pelvis CT 11/21/20 10:[address] WITH IV CONTRAST CT DOSE: 353.86 mGy.cm HISTORY: Lower abdominal pain. TECHNIQUE: Multiaxial CT images of the abdomen and pelvis were performed following the use of intravenous contrast. A dose lowering technique was utilized adhering to the principles of ALARA. COMPARISON STUDY: Abdomen and pelvis CT 07/08/2020. FINDINGS: The lung bases are clear. There is a small hiatus hernia. No pneumoper itoneum. No pneumatosis. No suspicious lytic or blastic osseous lesions. Prior cholecystectomy. There are few subcentimeter hypodense lesions within the left hepatic lobe. These are technically too small to characterize but likely represent cysts. The pancreas, spleen, adrenal glands, and kidneys are unremarkable. The main portal vein is patent. No retroperitoneal lymphadenopathy. Normal caliber abdominal aorta. Moderate bladder wall thickening with adjacent fat stranding. The uterus is surgically absent. Multiple colonic diverticula. There is questionable mild pericolonic fat stranding at the sigmoid colon. This could be reactive to the adjacent bladder inflammatory change or represent a low-grade colitis/diverticulitis. No evidence for bowel obstruction. The appendix is not identified and reportedly surgically absent. IMPRESSION: 1. Moderate bladder wall thickening with adjacent fat stranding consistent with a cystitis. Recommend correlation with urinalysis. 2. There is questionable mild pericolonic fat stranding at the sigmoid colon. This could be reactive to the adjacent bladder inflammatory change or represent a low-grade colitis/diverticulitis Electronically signed by: Jose A Rodríguez M.D. 11/21/2020 11:17 AM Medications Administered Sodium Chloride (Nss 1000ml) 1,000 mls @ 250 mls/hr IV .Q4H WILLIAM Stop: 12/21/20 09:29 Last Admin: 11/21/20 10:02 Dose: 250 mls/hr Documented by: [id number] Discontinued Medications Ceftriaxone Sodium (Rocephin) 1,000 mg in 50 mls @ 100 mls/hr IV NOW STA Stop: 11/21/20 11:09 Last Admin: 11/21/20 11:28 Dose: Not Given Documented by: [id number] Ceftriaxone Sodium (Rocephin) 1,000 mg in 50 mls @ 100 mls/hr IV NOW STA Stop: 11/21/20 12:02 Last Infusion: 11/21/20 12:46 Dose: 0 mls/hr Documented by: [id number] Admin: 11/21/20 11:53 Dose: 100 mls/hr Documented by: [id number] Ioversol (Optiray 320 100ml) 88 ml IV ONCE ONE Stop: 11/21/20 11:01 Last Admin: 11/21/20 11:00 Dose: 88 ml Documented by: [id number] Metoprolol Tartrate (Metoprolol Tartrate 25 Mg Tab) 25 mg PO NOW STA Stop: 11/21/20 13:30 Last Admin: 11/21/20 14:00 Dose: 25 mg Documented by: [id number] ECG Additional Comments: Normal sinus rhythm Normal ECG When compared with ECG of 17-JAN-2020 15:05, Code Status & VTE Plan Code Status CODE: FULL VTE: SCD's, Lovenox VTE Prophylaxis Plan VTE Prophylaxis will be ordered: Yes Supervising Physician Co-Signing Physician Notes Patient was seen and examined independently I discussed the case with Ian FLEMING I reviewed pertinent past medical social family history and also the plan of care and agree with the plan of care. Initially presented with lower abdominal pain which is been chronic over the last few months. Recently having a dental extraction. Patient has a history of malignancy of her kidney treated with cryotherapy. On imaging in the ER she is found to have inflammation in her bladder and lower colon. Patient's been bothered by this problem for months even to the point where she states she had a colonoscopy in May which was unremarkable. She is being brought in for urinary tract infection however incidentally she was noted to have a run of atrial fibrillation which is not in her history She has since reverted to normal sinus rhythm Examination shows her to sound to be in normal sinus rhythm without without overt murmurs at this is agree with starting metoprolol at this point time her abdomen exam is fairly unrevealing she states she has pain to deep examination of her left lower quadrant and suprapubic area but there is no rebound guarding or masses. Patient recently had dental procedure so concern for cardiac inflammation from endocarditis can be had. A sed rate is sent in the morning patient is on antibiotics of Rocephin cultures were obtained she is on monitor starting beta-serafin therapy Any exceptions will be noted below PG Care Time/CCT Total # of Minutes Spent Total Time Spent with Patient: Total time spent is greater than 50% in coordination of care (as documented) at patient's floor/unit and/or counseling patient: Coding Level of Care Code 98293 Initial Inpt Care Lvl 3 Diagnoses Dysrhythmias I49.9 Arrhythmia type: unspecified cardiac arrhythmia UTI (urinary tract infection) N39.0 Hematuria presence: without hematuria Urinary tract infection type: site unspecified HTN (hypertension) I10 Hypertension type: essential hypertension Hypercholesterolemia E78.00 Left lower quadrant abdominal pain R10.32 Lumbar stenosis M48.061 Neurogenic claudication status: unspecified Essential thrombocytosis D47.3 GERD (gastroesophageal reflux disease) K21.9 Esophagitis presence: esophagitis presence not specified Generalized anxiety disorder F41.1 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9 - Gastro-esophageal reflux disease without esophagitis (5) HTN (hypertension) Hypertension type: essential hypertension Qualified Code(s): I10 - Essential (primary) hypertension
[2020-11-21] MEDS ORDERED: POLYETHYLENE (MIRALAX) 17 GM PACK PO PRN (13:55)
[2020-11-21] MEDS ORDERED: ONDANSETRON INJ 2 MG/ML 2 ML VIAL IV PRN (13:55)
[2020-11-21] MEDS ORDERED: ENOXAPARIN INJ 40 MG/0.4 ML SYR SQ STA (14:20)
--- NOTE | 2020-11-21 14:22 | Emergency Department Note ---
History of Present Illness General Chief complaint: Urinary Symptoms Stated complaint: FREQUENT URINATION, GUADARRAMA Time Seen by Provider: 11/21/20 09:24 Source: patient Mode of arrival: ambulatory Limitations: no limitations History of Present Illness Provider complaint: dysuria, lower abd pain Onset (ago): day(s) 4 Location: abdomen Radiation: non-radiation Severity: moderate Pain Consistency: + colicky Maximum Pain Intensity: 4 Current Pain Intensity: 4 Quality: + constant Relieved By: + none Exacerbated By: + none Associated symptoms: + loss of appetite, + malaise and + other (Dysuria, freque ncy) Treatments prior to arrival: none This is an 80-year-old female presents emergency department with concern for lower abdominal pain. Patient states she has not been feeling well since she underwent a dental extraction on Sunday. She has been taking penicillin prophylactically since the extraction per her dentist. Patient states she began noticing urinary frequency, urgency, and discomfort 2 days ago. She did not notice any change in the color or odor of the urine. She denies any accompanying back pain, fevers or chills. Patient states she has not had a normal appetite since her extraction but attributed that to taking the antibiotics. No overt vomiting. Patient has previously had urinary tract infections and states this feels similar. No other recent medication changes. No prior history of kidney stones or pyelonephritis. Patient concerned that she has been septic previously from a urinary source also. Patient states she does have a history of a high platelet count which her doctor is aware of and follows. Pt seen during a time of high acuity and national emergency pandemic while wearing PPE. Home Medications Medication Instructions Recorded Confirmed Type aspirin 81 mg tablet,delayed 81 mg PO DAILY tab 01/10/19 11/21/20 History release cyanocobalamin (vitamin B-12) 500 1,000 mcg PO DAILY tab 02/05/20 11/21/20 History mcg tablet amlodipine 5 mg tablet 5 mg PO DAILY #90 tab 08/16/20 11/21/20 Rx atenolol 50 mg tablet 50 mg PO DAILY #90 tab 08/16/20 11/21/20 Rx atorvastatin 40 mg tablet 40 mg PO HS #90 tab 08/16/20 11/21/20 Rx cholecalciferol (vitamin D3) 50 2,000 unit PO DAILY #90 cap 09/02/20 11/21/20 History mcg (2,000 unit) capsule hydroxyurea 500 mg capsule 500 mg PO DAILY #60 cap 09/02/20 11/21/20 History ibuprofen 600 mg tablet 600 mg PO QID PRN #120 tab 09/02/20 11/21/20 Rx lorazepam 1 mg tablet 0.5 - 1 mg PO DAILY PRN #90 tab 10/04/20 11/21/20 Rx Allergies Allergy/AdvReac Type Severity Reaction Status Date / Time codeine Allergy Unknown UNKNOWN Verified 11/21/20 13:30 hydrochlorothiazide Allergy Unknown SHORTNESS Verified 11/21/20 13:30 OF BREATH lisinopril AdvReac Severe COUGHING Verified 11/21/20 13:30 quinapril AdvReac Severe COUGHING Verified 11/21/20 13:30 buspirone AdvReac Unknown Verified 11/21/20 13:30 Past Med/Surg History Medical History Allergic rhinitis 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 Diverticulitis large intestine Elevated transaminase level Essential familial hypercholesterolemia Essential thrombocytosis Generalized anxiety disorder Generalized osteoarthritis GERD (gastroesophageal reflux disease) Groin pain, chronic, left Hearing loss HTN (hypertension) Hypercholesterolemia Incomplete bladder emptying Insomnia Medicare annual wellness visit, subsequent Renal neoplasm Vitamin B12 deficiency Vitamin D deficiency Surgical History History of cataract surgery History of section History of cholecystectomy History of colonoscopy History of esophagogastroduodenoscopy History of hysterectomy History of partial nephrectomy Family History Mother Hypertension Myocardial infarction Stroke Family/Other Hypertension Brother Myocardial infarction Stroke Father Myocardial infarction Denies family history of Ovarian cancer Prostate cancer Breast cancer Colorectal cancer Social History Smoking Status: Never smoker Second Hand Exposure: No; Do You Dip or Chew Tobacco: No; Hx Alcohol Use: Yes Alcohol type: other Hx Substance Use: No Preferred Language: Haitian Communication Ability: Effective Visual Impairment: Limited Order Filler Required: No Beliefs That Will Affect Care: None marital status: Current Living Situation: Spouse current occupational status: retired Other Information That Helps Us Care for You: No Feels Safe at Home: No Is there a partner from a previous relationship who is making you feel unsafe now?: No Any Concerns about Your Family Situation: No Would You Like to Speak to Someone About Your Situation: No Childhood Exposure to Second-Hand Smoke: Yes caffeine: Yes Dental Care, Regularly: Yes Physical Activity Frequency: Daily Seatbelt Use: always Sunscreen Use: No Assistive Devices: Glasses Review of Systems See HPI for pertinent positives & negatives. and A total of 10 systems reviewed and were otherwise negative Physical Exam Vital Signs Vital Signs - 24 hr 11/21/20 09:16 11/21/20 11:24 11/21/20 13:52 Temperature 36.1 C L Temperature Source Temporal Artery Scan Pulse Rate 93 H Pulse Rate [Right Finger] 103 H 65 Respiratory Rate 18 18 18 Respiratory Effort / Characteristics Non-Labored Non-Labored Spontaneous Non-Labored Spontaneous Respiratory Depth Normal Normal Normal Blood Pressure 95/67 L Blood Pressure [Left Arm] 125/61 146/69 H Blood Pressure Mean 76 Blood Pressure Mean [Left Arm] 82 94 Blood Pressure Position [Left Arm] Lying Sitting Pulse Oximetry 97 96 98 Oxygen Delivery Method Room Air Room Air Room Air Sepsis Recent Fever Within 48 Hours No Sepsis New/Unexplained Change in Mental Status No Sepsis Action Taken by Nursing No Action Required GENERAL: alert, well appearing, well nourished, no distress, non-toxic EYE EXAM: normal conjunctiva, PERRL and EOM's grossly intact OROPHARYNX: no exudate, no erythema, lips, buccal mucosa, and tongue normal and mucous membranes are moist NECK: supple, no nuchal rigidity, no adenopathy, non-tender LUNGS: Clear to auscultation. Normal chest wall mechanics, no w/r/r HEART: no murmurs, S1 normal and S2 normal, A. fib with RVR noted on telemetry ABDOMEN: abdomen soft, mild discomfort with palpation of the lower abdomen, normo-active bowel sounds, no masses, no rebound or guarding. BACK: Back is symmetrical on inspection and there is no deformity, no midline tenderness, no CVA tenderness. SKIN: no rashes and no bruising UPPER EXTREMITIES: upper extremities are grossly normal. FROM, nml pulses b/l. LOWER EXTREMITIES: No pitting edema. FROM, nml pulses b/l. NEURO EXAM: Normal sensorium, cranial nerves II-XII grossly intact, normal speec h, no gross weakness of arms, no gross weakness of legs. Gross sensation intact. Course Administered Medications Acetaminophen (Acetaminophen 325 Mg Tab) 650 mg PO Q6 PRN PRN Reason: Pain Stop: 12/21/20 13:54 Last Admin: 11/23/20 07:31 Dose: 650 mg Documented by: [id number] Admin: 11/22/20 19:48 Dose: 650 mg Documented by: [id number] Admin: 11/22/20 07:52 Dose: 650 mg Documented by: [id number] Admin: 11/21/20 20:18 Dose: 650 mg Documented by: [id number] Amlodipine Besylate (Amlodipine Besylate 5 Mg Tab) 5 mg PO DAILY WILLIAM Stop: 12/22/20 08:59 Last Admin: 11/23/20 09:02 Dose: 5 mg Documented by: [id number] Admin: 11/22/20 07:54 Dose: 5 mg Documented by: [id number] Aspirin (Aspirin 81 Mg Ectab) 81 mg PO DAILY WILLIAM Stop: 12/22/20 08:59 Last Admin: 11/23/20 09:01 Dose: 81 mg Documented by: [id number] Admin: 11/22/20 07:53 Dose: 81 mg Documented by: [id number] Atenolol (Atenolol 50 Mg Tablet) 50 mg PO QAM WILLIAM Stop: 12/23/20 08:59 Last Admin: 11/23/20 09:02 Dose: 50 mg Documented by: [id number] Atorvastatin Calcium (Atorvastatin 40 Mg Tab) 40 mg PO HS WILLIAM Stop: 12/21/20 20:59 Last Admin: 11/22/20 20:47 Dose: 40 mg Documented by: [id number] Admin: 11/21/20 20:18 Dose: 40 mg Documented by: [id number] Cyanocobalamin (Cyanocobalamin 500 Mcg Tablet (Vitamin B-12)) 1,000 mcg PO DAILY WILLIAM Stop: 12/22/20 08:59 Last Admin: 11/23/20 09:02 Dose: 1,000 mcg Documented by: [id number] Admin: 11/22/20 07:53 Dose: 1,000 mcg Documented by: [id number] Enoxaparin Sodium (Enoxaparin Inj 40 Mg/0.4 Ml Syr) 40 mg SQ Q24H WILLIAM Stop: 12/22/20 08:59 Last Admin: 11/23/20 09:04 Dose: 40 mg Documented by: [id number] Admin: 11/22/20 09:10 Dose: 40 mg Documented by: [id number] Hydroxyurea (Hydroxyurea 500 Mg Cap) 500 mg PO DAILY [facility] Stop: 12/22/20 08:59 Last Admin: 11/23/20 09:02 Dose: 500 mg Documented by: [id number] Cosigned by: [id number] Admin: 11/22/20 07:52 Dose: 500 mg Documented by: [id number] Cosigned by: [id number] Ceftriaxone Sodium 1,000 mg/ (Dextrose) 50 mls @ 100 mls/hr IV Q24H WILLIAM; Protocol Stop: 11/27/20 13:59 Last Infusion: 11/22/20 14:56 Dose: 0 mls/hr Documented by: [id number] Admin: 11/22/20 14:26 Dose: 100 mls/hr Documented by: [id number] Lorazepam (Lorazepam 1 Mg Tab) 1 mg PO Q8 PRN PRN Reason: Anxiety Stop: 12/21/20 15:47 Last Admin: 11/23/20 07:27 Dose: 1 mg Documented by: [id number] Admin: 11/22/20 20:48 Dose: 1 mg Documented by: [id number] Admin: 11/22/20 09:09 Dose: 1 mg Documented by: [id number] Admin: 11/21/20 20:19 Dose: 1 mg Documented by: [id number] Venlafaxine HCl (Venlafaxine Hcl Xr 75 Mg Capxr) 75 mg PO QAM [facility] Stop: 12/23/20 08:59 Last Admin: 11/23/20 09:01 Dose: 75 mg Documented by: [id number] Vitamin D (Cholecalciferol 1,000 Units 25 Mcg Tab) 2,000 units PO DAILY WILLIAM Stop: 12/22/20 08:59 Last Admin: 11/23/20 09:02 Dose: 2,000 units Documented by: [id number] Admin: 11/22/20 07:52 Dose: 2,000 units Documented by: [id number] Discontinued Medications Atenolol (Atenolol 50 Mg Tablet) 50 mg PO DAILY [facility] Stop: 12/22/20 08:59 Last Admin: 11/22/20 09:09 Dose: 50 mg Documented by: [id number] Bupropion HCl (Bupropion Xl 150 Mg Tabcr) 450 mg PO QAM [facility] Stop: 12/22/20 08:59 Last Admin: 11/22/20 07:53 Dose: 450 mg Documented by: [id number] Enoxaparin Sodium (Enoxaparin Inj 40 Mg/0.4 Ml Syr) 40 mg SQ ONE STA Stop: 11/21/20 14:21 Last Admin: 11/21/20 15:28 Dose: 40 mg Documented by: [id number] Sodium Chloride (Nss 1000ml) 1,000 mls @ 250 mls/hr IV .Q4H WILLIAM Stop: 12/21/20 09:29 Last Admin: 11/21/20 17:13 Dose: Not Given Documented by: [id number] Infusion: 11/21/20 15:31 Dose: 0 mls/hr Documented by: [id number] Admin: 11/21/20 10:02 Dose: 250 mls/hr Documented by: [id number] Ceftriaxone Sodium (Rocephin) 1,000 mg in 50 mls @ 100 mls/hr IV NOW STA Stop: 11/21/20 11:09 Last Admin: 11/21/20 11:28 Dose: Not Given Documented by: [id number] Ceftriaxone Sodium (Rocephin) 1,000 mg in 50 mls @ 100 mls/hr IV NOW STA Stop: 11/21/20 12:02 Last Infusion: 11/21/20 12:46 Dose: 0 mls/hr Documented by: [id number] Admin: 11/21/20 11:53 Dose: 100 mls/hr Documented by: [id number] Lactated Ringer's (Lr) 500 mls @ 999 mls/hr IV .Q31M ONE Stop: 11/22/20 00:17 Last Infusion: 11/22/20 01:00 Dose: 0 mls/hr Documented by: [id number] Admin: 11/22/20 00:20 Dose: 999 mls/hr Documented by: [id number] Ioversol (Optiray 320 100ml) 88 ml IV ONCE ONE Stop: 11/21/20 11:01 Last Admin: 11/21/20 11:00 Dose: 88 ml Documented by: [id number] Metoprolol Tartrate (Metoprolol Tartrate 25 Mg Tab) 25 mg PO NOW STA Stop: 11/21/20 13:30 Last Admin: 11/21/20 14:00 Dose: 25 mg Documented by: [id number] Metoprolol Tartrate (Metoprolol Tartrate 25 Mg Tab) 25 mg PO BID WILLIAM Stop: 12/21/20 20:59 Last Admin: 11/21/20 20:18 Dose: 25 mg Documented by: [id number] Pantoprazole Sodium (Pantoprazole 40 Mg Tab) 40 mg PO DAILY STA Stop: 11/21/20 15:49 Last Admin: 11/21/20 17:37 Dose: 40 mg Documented by: [id number] Medical Decision Making Differential Diagnosis Differential diagnoses includes but is not limited to gastritis, peptic ulcer disease, GERD, gallbladder disease, pancreatitis, small bowel obstruction, acute coronary syndrome, pericarditis, ischemic bowel, irritable bowel disease, i rritable bowel syndrome, appendicitis, diverticulitis, malignancy, hernia, urinary tract infection, torsion, [/ectopic (if female)], perforation, trauma, infectious. Medical Records Attestation: I reviewed the patient's medical records. Home Medications Current Medication List: was personally reviewed by me Laboratory Data Attestation: I reviewed the patient's lab results. Result diagrams: 11/23/20 07:19 11/23/20 07:19 Lab Results 11/21/20 11/21/20 11/21/20 Range/Units 09:54 09:54 09:54 WBC 10.19 (4.8-10.8) K/uL RBC 4.03 L (4.2-5.4) M/uL Hgb 14.7 (12.0-16.0) g/dL Hct 42.7 (37-47) % MCV 106.0 H (80-100) fL MCH 36.5 H (25-34) pg MCHC 34.4 (32-36) g/dL RDW Std Deviation 55.5 H (36.4-46.3) fL RDW Coeff of Raymon 14.5 (11.5-14.5) % Plt Count 403 H (130-400) K/uL MPV 9.4 (7.4-10.4) fL Immature Gran % (Auto) 0.2 % Neut % (Auto) 77.8 % Lymph % (Auto) 13.3 % [place] % (Auto) 7.0 % Eos % (Auto) 1.5 % Baso % (Auto) 0.2 % Neut # (Auto) 7.93 H (1.4-6.5) K/uL Lymph # (Auto) 1.36 (1.2-3.4) K/uL Kendall # (Auto) 0.71 H (0.11-0.59) K/uL Eos # (Auto) 0.15 (0-0.5) K/uL Baso # (Auto) 0.02 (0-0.2) K/uL Immature Gran # (Auto) 0.02 (0.00-0.02) K/uL Sodium 135 L (136-145) mmol/L Potassium 3.9 (3.5-5.1) mmol/L Chloride 105 (98-107) mmol/L Carbon Dioxide 23 (21-32) mmol/L Anion Gap 7.0 (3-11) BUN 15 (7-18) mg/dl Creatinine 0.79 (0.6-1.2) mg/dl Est Cr Clr Drug Dosing Not Reportable Est GFR ( Amer) 81.4 ml/min Est GFR (Non-Af Amer) 70.2 ml/min BUN/Creatinine Ratio 18.5 (10-20) Glucose 128 H (70-99) mg/dl Lactate (0.4-2.0) mmol/L Calcium 9.1 (8.5-10.1) mg/dl Magnesium (1.8-2.4) mg/dl Total Bilirubin 0.5 (0.2-1) mg/dl AST 18 (15-37) U/L ALT 28 (12-78) U/L Alkaline Phosphatase 48 (45-117) U/L Troponin I (0-0.045) ng/ml NT-Pro-B Natriuret Pep (0-1800) pg/ml Total Protein 7.0 (6.4-8.2) gm/dl Albumin 3.4 (3.4-5.0) gm/dl Globulin 3.6 (2.5-4.0) gm/dl Albumin/Globulin Ratio 0.9 (0.9-2) Procalcitonin (0-0.5) ng/ml TSH (0.300-4.500) uIu/ml Urine Color Dark Yellow Urine Appearance Clear (Clear) Urine pH 5.5 (4.5-7.5) Ur Specific [place] 1.045 H (1.000-1.030) Urine Protein Negative (Negative) Urine Glucose (UA) Negative (Negative) Urine Ketones 1+ H (Negative) Urine Blood Negative (Negative) Urine Nitrite Negative (Negative) Urine Bilirubin 1+ H (Negative) Urine Urobilinogen Negative (Negative) Ur Leukocyte Esterase Negative (Negative) COVID-19 Eval Order SARS-CoV-2 (PCR) (Negative) 11/21/20 11/21/20 11/21/20 Range/Units 11:07 11:49 11:49 WBC (4.8-10.8) K/uL RBC (4.2-5.4) M/uL Hgb (12.0-16.0) g/dL Hct (37-47) % MCV (80-100) fL MCH (25-34) pg MCHC (32-36) g/dL RDW Std Deviation (36.4-46.3) fL RDW Coeff of Raymon (11.5-14.5) % Plt Count (130-400) K/uL MPV (7.4-10.4) fL Immature Gran % (Auto) % Neut % (Auto) % Lymph % (Auto) % Kend[place] % (Auto) % Eos % (Auto) % Baso % (Auto) % Neut # (Auto) (1.4-6.5) K/uL Lymph # (Auto) (1.2-3.4) K/uL [place] # (Auto) (0.11-0.59) K/uL Eos # (Auto) (0-0.5) K/uL Baso # (Auto) (0-0.2) K/uL Immature Gran # (Auto) (0.00-0.02) K/uL Sodium (136-145) mmol/L Potassium (3.5-5.1) mmol/L Chloride (98-107) mmol/L Carbon Dioxide (21-32) mmol/L Anion Gap (3-11) BUN (7-18) mg/dl Creatinine (0.6-1.2) mg/dl Est Cr Clr Drug Dosing Est GFR ( Amer) ml/min Est GFR (Non-Af Amer) ml/min BUN/Creatinine Ratio (10-20) Glucose (70-99) mg/dl Lactate (0.4-2.0) mmol/L Calcium (8.5-10.1) mg/dl Magnesium 2.2 (1.8-2.4) mg/dl Total Bilirubin (0.2-1) mg/dl AST (15-37) U/L ALT (12-78) U/L Alkaline Phosphatase (45-117) U/L Troponin I < 0.015 (0-0.045) ng/ml NT-Pro-B Natriuret Pep 2402 H (0-1800) pg/ml Total Protein (6.4-8.2) gm/dl Albumin (3.4-5.0) gm/dl Globulin (2.5-4.0) gm/dl Albumin/Globulin Ratio (0.9-2) Procalcitonin < 0.05 (0-0.5) ng/ml TSH 0.949 (0.300-4.500) uIu/ml Urine Color Urine Appearance (Clear) Urine pH (4.5-7.5) Ur Specific [place] (1.000-1.030) Urine Protein (Negative) Urine Glucose (UA) (Negative) Urine Ketones (Negative) Urine Blood (Negative) Urine Nitrite (Negative) Urine Bilirubin (Negative) Urine Urobilinogen (Negative) Ur Leukocyte Esterase (Negative) COVID-19 Eval Order SARS-CoV-2 (PCR) (Negative) 11/21/20 11/21/20 11/21/20 Range/Units 13:04 13:04 13:35 WBC (4.8-10.8) K/uL RBC (4.2-5.4) M/uL Hgb (12.0-16.0) g/dL Hct (37-47) % MCV (80-100) fL MCH (25-34) pg MCHC (32-36) g/dL RDW Std Deviation (36.4-46.3) fL RDW Coeff of Raymon (11.5-14.5) % Plt Count (130-400) K/uL MPV (7.4-10.4) fL Immature Gran % (Auto) % Neut % (Auto) % Lymph % (Auto) % [place] % (Auto) % Eos % (Auto) % Baso % (Auto) % Neut # (Auto) (1.4-6.5) K/uL Lymph # (Auto) (1.2-3.4) K/uL [place] # (Auto) (0.11-0.59) K/uL Eos # (Auto) (0-0.5) K/uL Baso # (Auto) (0-0.2) K/uL Immature Gran # (Auto) (0.00-0.02) K/uL Sodium (136-145) mmol/L Potassium (3.5-5.1) mmol/L Chloride (98-107) mmol/L Carbon Dioxide (21-32) mmol/L Anion Gap (3-11) BUN (7-18) mg/dl Creatinine (0.6-1.2) mg/dl Est Cr Clr Drug Dosing Est GFR ( Amer) ml/min Est GFR (Non-Af Amer) ml/min BUN/Creatinine Ratio (10-20) Glucose (70-99) mg/dl Lactate 1.6 (0.4-2.0) mmol/L Calcium (8.5-10.1) mg/dl Magnesium (1.8-2.4) mg/dl Total Bilirubin (0.2-1) mg/dl AST (15-37) U/L ALT (12-78) U/L Alkaline Phosphatase (45-117) U/L Troponin I (0-0.045) ng/ml NT-Pro-B Natriuret Pep (0-1800) pg/ml Total Protein (6.4-8.2) gm/dl Albumin (3.4-5.0) gm/dl Globulin (2.5-4.0) gm/dl Albumin/Globulin Ratio (0.9-2) Procalcitonin (0-0.5) ng/ml TSH (0.300-4.500) uIu/ml Urine Color Urine Appearance (Clear) Urine pH (4.5-7.5) Ur Specific [place] (1.000-1.030) Urine Protein (Negative) Urine Glucose (UA) (Negative) Urine Ketones (Negative) Urine Blood (Negative) Urine Nitrite (Negative) Urine Bilirubin (Negative) Urine Urobilinogen (Negative) Ur Leukocyte Esterase (Negative) COVID-19 Eval Order Covid19 at [facility] SARS-CoV-2 (PCR) NEGATIVE (Negative) Imaging Data Radiologist's Impression: Abdomen/Pelvis CT 11/21/20 10:[address] WITH IV CONTRAST CT DOSE: 353.86 mGy.cm HISTORY: Lower abdominal pain. TECHNIQUE: Multiaxial CT images of the abdomen and pelvis were performed following the use of intravenous contrast. A dose lowering technique was utiliz ed adhering to the principles of ALARA. COMPARISON STUDY: Abdomen and pelvis CT 07/08/2020. FINDINGS: The lung bases are clear. There is a small hiatus hernia. No pneumoperitoneum. No pneumatosis. No suspicious lytic or blastic osseous lesions. Prior cholecystectomy. There are few subcentimeter hypodense lesions within the left hepatic lobe. These are technically too small to characterize but likely represent cysts. The pancreas, spleen, adrenal glands, and kidneys are unremarkable. The main portal vein is patent. No retroperitoneal lymphadenop athy. Normal caliber abdominal aorta. Moderate bladder wall thickening with adjacent fat stranding. The uterus is surgically absent. Multiple colonic diverticula. There is questionable mild pericolonic fat stranding at the sigmoid colon. This could be reactive to the adjacent bladder inflammatory change or represent a low-grade colitis/diverticulitis. No evidence for bowel obstruction. The appendix is not identified and reportedly surgically absent. IMPRESSION: 1. Moderate bladder wall thickening with adjacent fat stranding consistent with a cystitis. Recommend correlation with urinalysis. 2. There is questionable mild pericolonic fat stranding at the sigmoid colon. This could be reactive to the adjacent bladder inflammatory change or represent a low-grade colitis/diverticulitis. ACT 112: Negative or not required by law. Electronically signed by: Jose A Rodríguez M.D. 11/21/2020 11:17 AM ECG Data Attestation: I personally reviewed and interpreted this ECG as follows: Indication: + tachycardia Rate (beats per minute): 68 Rhythm: + normal sinus ECG Intervals/blocks: + Normal QRS and + Normal QT ECG [place]: + Normal ECG ST segments: + Normal ST segments MDM Narrative This is an 80-year-old female who presents due to concern for lower abdominal pain and possible urinary tract infection. Patient has had these symptoms previously and is concerned that she has previously been septic. Patient rec ently underwent dental extraction and has been taking penicillin for this. Patient denied any other concerns or complaints. Of note patient initially was noted to be in atrial fibrillation which is new for her. I cannot find any prior record in EMR and patient denied ever being told this. Patient does not follow with cardiology routinely. Patient's UA is reassuring, a culture was added as I suspect she may be partially treated from the penicillin she was using status post dental extraction. No evidence of bacteremia/sepsis. CT of the patient's abdomen pelvis was also reassuring but did show findings suggestive of cystitis. Due to concern for possible occult infection, and intermittent atrial fibrillation noted on telemetry with no prior history and no symptoms to know when this started, case was discussed with hospitalist for additional evaluation and management. I did not hear a murmur patient was afebrile in the department, I feel endocarditis less likely. Patient and husba nd aware tomorrow all results and were in agreement with plan. Patient was given IV Rocephin while in the emergency room and cautiously rehydrated. It is unclear if occult infection or even the stress of the recent procedure could have contributed to the occurrence of the atrial fibrillation. An order was placed for continuous cardiac monitoring. The monitor shows a rate of 105_ with _atrial fibrillation_ rhythm. Impression & Plan Abdominal pain, Dysuria, Increased urinary frequency, Atrial fibrillation with rapid ventricular response, Thrombocytosis Discharge Plan Visit Data Chief Complaint: Urinary Symptoms Stated Complaint: FREQUENT URINATION, GUADARRAMA ED Provider: Noy Cha Discharge Problem: Abdominal pain, Dysuria, Increased urinary frequency, Atrial fibrillation with rapid ventricular response, Thrombocytosis Patient Disposition: Admitted As Inpatient Discharge Instructions Interventions: ED Discharge Assessment Last Done: 11/21/20 15:31
--- NOTE | 2020-11-21 15:43 | XCELERA ---
[id number]
[2020-11-21] MEDS ORDERED: PANTOprazole 40 MG TAB PO STA (15:48)
[2020-11-21] MEDS ORDERED: METOPROLOL TARTRATE 1 MG/ML VIAL IV PRN (15:48)
[2020-11-21] MEDS: ATORVASTATIN 40 MG TAB PO SCH (20:18)
[2020-11-21] MEDS: ACETAMINOPHEN 325 MG TAB PO PRN (20:18)
[2020-11-21] MEDS: LORazepam 1 MG TAB PO PRN (20:19)
[2020-11-21] MEDS ORDERED: METOPROLOL TARTRATE 25 MG TAB PO SCH (21:00)
[2020-11-21] MEDS ORDERED: LACTATED RINGER'S 500 ML IV ONE (23:47)
--- NOTE | 2020-11-21 23:51 | Electrocardiogram Report ---
Test Reason : Blood Pressure : / mmHG Vent. Rate : 068 BPM Atrial Rate : 068 BPM P-R Int : 170 ms QRS Dur : 086 ms QT Int : 398 ms P-R-T Axes : 047 003 012 degrees QTc Int : 423 ms Normal sinus rhythm Normal ECG When compared with ECG of 17-JAN-2020 15:05, No significant change was found Confirmed by Ray Tovar ([id number]) on 11/21/2020 11:51:17 PM Referred By: REFERRED SELF Confirmed By:Ray Tovar
[2020-11-22 07:38] LABS: Basophils # (auto) 0.02 K/uL (0-0.2); Basophils % (auto) 0.4 %; Eosinophils # (auto) 0.17 K/uL (0-0.5); Eosinophils % (auto) 3.2 %; Hematocrit (blood only) 34.5 % (37-47); Hemoglobin 11.9 g/dL (12.0-16.0); Immature Granulocytes # (auto) 0.01 K/uL (0.00-0.02); Immature Granulocytes % (auto) 0.2 %; Lymphocytes # (auto) 1.51 K/uL (1.2-3.4); Lymphocytes % (auto) 28.1 %; Mean Corpuscular Hemoglobin 36.7 pg (25-34); Mean Corpuscular Hgb Conc 34.5 g/dL (32-36); Mean Corpuscular Volume 106.5 fL (80-100); Mean Platelet Volume 9.2 fL (7.4-10.4); Monocytes # (auto) 0.51 K/uL (0.11-0.59); Monocytes % (auto) 9.5 %; Neutrophils # (auto) 3.15 K/uL (1.4-6.5); Neutrophils % (auto) 58.6 %; Platelet Count 347 K/uL (130-400); RDW Coefficient of Variation 14.5 % (11.5-14.5); RDW Standard Deviation 55.4 fL (36.4-46.3); Red Blood Count 3.24 M/uL (4.2-5.4); White Blood Count 5.37 K/uL (4.8-10.8)
[2020-11-22] MEDS: CHOLECALCIFEROL 1,000 UNITS 25 MCG TAB PO SCH (07:52)
[2020-11-22] MEDS: HYDROXYUREA 500 MG CAP PO SCH (07:52)
[2020-11-22] MEDS: ACETAMINOPHEN 325 MG TAB PO PRN ×2 (07:52→19:48)
[2020-11-22] MEDS: CYANOCOBALAMIN 500 MCG TABLET (VITAMIN B-12) PO SCH (07:53)
[2020-11-22] MEDS: ASPIRIN 81 MG ECTAB PO SCH (07:53)
[2020-11-22 07:54] LABS: Calcium 8.4 mg/dl (8.5-10.1); Creatinine Clr Calc Pharmacy 68.9 ml/min; Est GFR (African American) 100.2 ml/min; Est GFR (Non-African American) 86.4 ml/min; Magnesium 2.1 mg/dl (1.8-2.4)
[2020-11-22] MEDS: amLODIPine BESYLATE 5 MG TAB PO SCH (07:54)
[2020-11-22] MEDS ORDERED: ATENOLOL 50 MG TABLET PO SCH (09:00)
[2020-11-22] MEDS ORDERED: buPROPion XL 150 MG TABCR PO SCH (09:00)
[2020-11-22] MEDS: LORazepam 1 MG TAB PO PRN ×2 (09:09→20:48)
[2020-11-22] MEDS: ENOXAPARIN INJ 40 MG/0.4 ML SYR SQ SCH (09:10)
--- NOTE | 2020-11-22 10:06 | Hospitalist Progress Note ---
Date of Service November 22, 2020 Assessment & Plan (1) Dysrhythmias: As per HPI, patient remains in NSR. She does not have any EKG in the past with atrial fibrillation No a. fib on monitor. Appears to be paroxysmal atrial tachycardia on ER telemetry (2) UTI (urinary tract infection): patient with symptoms and radiological equivalence, urine analysis negative in the setting of patient on PENV K - will await culture, however will cover with rocephin 1GM IV q24 - follow lactate and other biomarkers - WBC 10, NLR 4.5:1, PCT <0.05, lactate 1.6 (3) HTN (hypertension): As above well controlled goal <140 - Continue amlodipine and atenolol with hold parameters (4) Hypercholesterolemia: Continue atorvastatin 40 mg PO (5) Left lower quadrant abdominal pain: As above, continue with Rocephin at this time- CT fat stranding could be related to her bladder infection as well - Patient with colonoscopy in May with diverticulosis in sigmoid - Will add Miralax as well - Follow clinical response - This pain radiates into her groin and upper thigh- and is consistent with her lumbar pain and relief with putting legs up on pillows - no lymphadenopathy (6) Lumbar stenosis: as above- Tylenol for pain --- Neurology from 08/22 recommended baclofen and Neurontin- - Patient does not have Neurontin or baclofen listed on her medication rec, she can not remember taking this or not - she was to be on 100mg TID- will need to verify and add back to her regime - PT/OT can try Lidoderm patch if needed or Voltaren gel (7) Essential thrombocytosis: Continue with her hyrdoxyurea and ASA - with her being on ASA as well as Motrin will add PPI 20 mg daily (8) GERD (gastroesophageal reflux disease): As above- PPI (9) Generalized anxiety disorder: Continue PRN Ativan for anxiety (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 Previously going every 15-20 minutes, only three times last night. No fever, chills, flank pain. Reports under a lot of stress recently with her undergoing chemotherapy. Review of Systems Review of Systems: All systems reviewed & are unremarkable except as noted in HPI & below Physical Exam Constitutional: WD/WN, vitals as above Eyes: + anicteric sclerae; normal pupil size ENMT: external ear and nose normal, oropharynx normal Respiratory: normal respiratory effort, lungs clear to auscultation Cardiovascular: RRR, no murmur, no edema Gastrointestinal (Abdomen): normal bowel sounds, soft, nontender, no hepatosplenomegaly Musculoskeletal: no cyanosis or clubbing, extremities motor strength 5/5 Skin: no rashes, warm and dry Neurologic: moves all extremities and awake; not confused Psychiatric: Orientation: alert and oriented x 3 Affect: + tearful affect Results & Data Results & Data ([facility]) Vital Signs (Past 12 Hours) Vital Signs Temp Pulse Pulse Resp BP BP Pulse Ox 11/22/20 07:36 36.6 C 65 18 113/62 93 11/22/20 04:06 37.0 C 65 20 107/67 95 11/22/20 01:19 61 112/72 11/22/20 00:36 71 11/21/20 23:32 36.6 C 72 19 85/44 L 95 PG Care Time/CCT Total # of Minutes Spent Total Time Spent with Patient: Total time spent is greater than 50% in coordination of care (as documented) at patient's floor/unit and/or counseling patient: Coding Level of Care Code 13818 Subseq Hosp Care Lvl 2 Diagnoses Dysrhythmias I49.9 Arrhythmia type: unspecified cardiac arrhythmia UTI (urinary tract infection) N39.0 Hematuria presence: without hematuria Urinary tract infection type: site unspecified HTN (hypertension) I10 Hypertension type: essential hypertension Hypercholesterolemia E78.00 Left lower quadrant abdominal pain R10.32 Lumbar stenosis M48.061 Neurogenic claudication status: unspecified Essential thrombocytosis D47.3 GERD (gastroesophageal reflux disease) K21.9 Esophagitis presence: esophagitis presence not specified Generalized anxiety disorder F41.1 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 (1) UTI (urinary tract infection) Hematuria presence: without hematuria Urinary tract infection type: site unspecified Qualified Code(s): N39.0 - Urinary tract infection, site not speci fied (2) Lumbar stenosis Neurogenic claudication status: unspecified Qualified Code(s): M48.061 - Spinal stenosis, lumbar region without neurogenic claudication (3) Dysrhythmias Arrhythmia type: unspecified cardiac arrhythmia Qualified Code(s): I49.9 - Cardiac arrhythmia, unspecified (4) GERD (gastroesophageal reflux disease) Esophagitis presence: esophagitis presence not specified Qualified Code(s): K21.9 - Gastro-esophageal reflux disease without esophagitis (5) HTN (hypertension) Hypertension type: essential hypertension Qualified Code(s): I10 - Essential (primary) hypertension
--- NOTE | 2020-11-22 11:25 | Cardiology Consultation ---
Date of Consultation November 22, 2020 Assessment & Plan (1) Dysrhythmias: Patient is an 80yo female with a history of HTN, HLD, TIA, and essential thrombocytosis who presented with abdominal pain, fatigue, and urinary symptoms, and was found in the ED with tachycardia. Cardiology was consulted out of concern for possible atrial fibrillation vs PAT. Review of telemetry shows the event in question is consistent with PATs. Patient has experienced multiple stressors that could trigger PATs recently including dental work, urinary tract infection, or psychological stress from her 's declining health. Echo performed this morning showed mild concentric left ventricular hypertrophy but no valvular lesion concerning for endocarditis. Paroxysmal atrial tachycardia Continue beta serafin therapy Anticoagulation not indicated at this time Type 1 diastolic heart dysfunction No evidence of volume overload at this time Continue antihypertensive therapy Further management per primary team Thank you the opportunity to participate in this patient's care. Please refer to Dr. Gutierrez's documentation for further recommendations. Supervising Physician Co-Signing Physician Notes Patient seen and examined. Agree with Dr. Christie's assessment and plan Review of laboratory monitor notes a brief episode of an atrial tachycardia (asymptomatic). No evidence of atrial fibrillation thus far. Would continue beta-serafin therapy. No need for further cardiology follow-up. History of Present Illness Attending Physician: Flaco Rodriguez MD History of Present Illness Patient is an 80yo female with a history of HTN, HLD, TIA, essential thrombocytosis, chronic eosinophilic leukemia, renal cancer, pyelonephritis, and chronic back pain who presented with abdominal pain, fatigue, and urinary symptoms about a week after having seven teeth pulled by her dentist. She was placed on oral PenVK prior to her dental procedure. Patient was noted on telemetry to have an HR in the 130s, irregularly irregular rhythm, and variance of p-waves. Repeat EKG showed the patient in NSR. This morning, patient was seen at bedside. She feels well and notes minor continued fatigue, though her urinary symptoms are improving. Denies current CP, SOB, palpitations, lightheadedness, dizziness, or other symptoms. Patient notes occasional heartburn, but denies any other recent or remote CP including CP radiating to the arm or jaw. Denies recent or remote SOB, palpitations, lightheadedness, dizziness, or other symptoms. Patient notes no history of diagnosed cardiac dysrhythmias, although she notes having a cardiac catheterization "20+ years ago" for her heart rhythm. This was performed at [facility] or [facility]. She notes that no new medicines or other interventions were started after that cardiac catheterization. Family history includes history of "heart attacks" on her mother's side, including one in her mother (age unclear), a fatal heart attack in her brother at age 44, and a heart attack at age 47 in a different brother. Patient notes a history of HLD in her mother's side of the family, though no HTN. Patient notes no known history of atrial fibrillation or other cardiac dysrhythmias in either side of her family. Allergies Allergy/AdvReac Type Severity Reaction Status Date / Time codeine Allergy Unknown UNKNOWN Verified 11/21/20 13:30 hydrochlorothiazide Allergy Unknown SHORTNESS Verified 11/21/20 13:30 OF BREATH lisinopril AdvReac Severe COUGHING Verified 11/21/20 13:30 quinapril AdvReac Severe COUGHING Verified 11/21/20 13:30 buspirone AdvReac Unknown Verified 11/21/20 13:30 Home Medications Medication Instructions Recorded Confirmed Type aspirin 81 mg tablet,delayed 81 mg PO DAILY tab 01/10/19 11/21/20 History release cyanocobalamin (vitamin B-12) 500 1,000 mcg PO DAILY tab 02/05/20 11/21/20 History mcg tablet amlodipine 5 mg tablet 5 mg PO DAILY #90 tab 08/16/20 11/21/20 Rx atenolol 50 mg tablet 50 mg PO DAILY #90 tab 08/16/20 11/21/20 Rx atorvastatin 40 mg tablet 40 mg PO HS #90 tab 08/16/20 11/21/20 Rx cholecalciferol (vitamin D3) 50 2,000 unit PO DAILY #90 cap 09/02/20 11/21/20 History mcg (2,000 unit) capsule hydroxyurea 500 mg capsule 500 mg PO DAILY #60 cap 09/02/20 11/21/20 History ibuprofen 600 mg tablet 600 mg PO QID PRN #120 tab 09/02/20 11/21/20 Rx lorazepam 1 mg tablet 0.5 - 1 mg PO DAILY PRN #90 tab 10/04/20 11/21/20 Rx Patient History Medical History Allergic rhinitis 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 Diverticulitis large intestine Elevated transaminase level Essential familial hypercholesterolemia Essential thrombocytosis Generalized anxiety disorder Generalized osteoarthritis GERD (gastroesophageal reflux disease) Groin pain, chronic, left Hearing loss HTN (hypertension) Hypercholesterolemia Incomplete bladder emptying Insomnia Medicare annual wellness visit, subsequent Renal neoplasm Vitamin B12 deficiency Vitamin D deficiency Surgical History History of cataract surgery History of section History of cholecystectomy History of colonoscopy History of esophagogastroduodenoscopy History of hysterectomy History of partial nephrectomy Family History Mother Hypertension Myocardial infarction Stroke Family/Other Hypertension Brother Myocardial infarction Stroke Father Myocardial infarction Denies family history of Ovarian cancer Prostate cancer Breast cancer Colorectal cancer Social History Smoking Status: Never smoker Second Hand Exposure: No; Do You Dip or Chew Tobacco: No; Hx Alcohol Use: Yes Alcohol type: other Hx Substance Use: No Preferred Language: Danish Communication Ability: Effective Visual Impairment: Limited Inspector Brake Lining Required: No Beliefs That Will Affect Care: None marital status: Current Living Situation: Spouse current occupational status: retired Other Information That Helps Us Care for You: No Feels Safe at Home: No Is there a partner from a previous relationship who is making you feel unsafe now?: No Any Concerns about Your Family Situation: No Would You Like to Speak to Someone About Your Situation: No Childhood Exposure to Second-Hand Smoke: Yes caffeine: Yes Dental Care, Regularly: Yes Physical Activity Frequency: Daily Seatbelt Use: always Sunscreen Use: No Assistive Devices: Glasses Review of Systems Review of Systems: See HPI Physical Exam Constitutional: well developed, well nourished and comfortable; no acute distress Respiratory: normal respiratory effort, lungs clear to auscultation Cardiovascular: Rate/Rhythm: regular rate and regular rhythm Heart Sounds: normal S1 and normal S2; no murmur Vessels: no JVD Extremities: no calf tenderness and no edema Gastrointestinal (Abdomen): normal bowel sounds, soft, nontender, no hepatosplenomegaly Musculoskeletal: no cyanosis or clubbing, extremities motor strength 5/5 Results & Data ([facility]) Vital Signs (Past 12 Hours) Vital Signs Temp Pulse Pulse Resp BP BP Pulse Ox 11/22/20 07:36 36.6 C 65 18 113/62 93 11/22/20 04:06 37.0 C 65 20 107/67 95 11/22/20 01:19 61 112/72 11/22/20 00:36 71 11/21/20 23:32 36.6 C 72 19 85/44 L 95 Resident Activity Tracking Resident Involvement: Resident Care Provided Care Provided: Adult Hospital Medicine (1) Dysrhythmias Arrhythmia type: unspecified cardiac arrhythmia Qualified Code(s): I49.9 - Cardiac arrhythmia, unspecified
[2020-11-22] MEDS: cefTRIAXone SODIUM 1,000 MG in DEXTROSE 5% 50 ML IV SCH (14:26)
[2020-11-22] MEDS: ATORVASTATIN 40 MG TAB PO SCH (20:47)
[2020-11-23] MEDS: LORazepam 1 MG TAB PO PRN (07:27)
[2020-11-23] MEDS: ACETAMINOPHEN 325 MG TAB PO PRN (07:31)
[2020-11-23 07:44] LABS: Basophils # (auto) 0.01 K/uL (0-0.2); Basophils % (auto) 0.2 %; Eosinophils # (auto) 0.22 K/uL (0-0.5); Eosinophils % (auto) 3.9 %; Hematocrit (blood only) 35.7 % (37-47); Hemoglobin 12.4 g/dL (12.0-16.0); Immature Granulocytes # (auto) 0.02 K/uL (0.00-0.02); Immature Granulocytes % (auto) 0.4 %; Lymphocytes # (auto) 1.23 K/uL (1.2-3.4); Lymphocytes % (auto) 21.8 %; Mean Corpuscular Hemoglobin 36.4 pg (25-34); Mean Corpuscular Hgb Conc 34.7 g/dL (32-36); Mean Corpuscular Volume 104.7 fL (80-100); Mean Platelet Volume 9.3 fL (7.4-10.4); Monocytes # (auto) 0.56 K/uL (0.11-0.59); Monocytes % (auto) 9.9 %; Neutrophils % (auto) 63.8 %; Platelet Count 354 K/uL (130-400); RDW Coefficient of Variation 14.6 % (11.5-14.5); RDW Standard Deviation 54.5 fL (36.4-46.3); Red Blood Count 3.41 M/uL (4.2-5.4); White Blood Count 5.64 K/uL (4.8-10.8)
[2020-11-23 08:53] LABS: BUN Creatinine Ratio 14.2 (10-20); Calcium 9.2 mg/dl (8.5-10.1); Creatinine Clr Calc Pharmacy 75.5 ml/min; Est GFR (African American) 103.2 ml/min; Magnesium 2.4 mg/dl (1.8-2.4); Potassium 3.6 mmol/L (3.5-5.1)
[2020-11-23] MEDS ORDERED: VENLAFAXINE HCL XR 75 MG CAPXR PO SCH (09:00)
[2020-11-23] MEDS ORDERED: ATENOLOL 50 MG TABLET PO SCH (09:00)
[2020-11-23] MEDS: ASPIRIN 81 MG ECTAB PO SCH (09:01)
[2020-11-23] MEDS: CYANOCOBALAMIN 500 MCG TABLET (VITAMIN B-12) PO SCH (09:02)
[2020-11-23] MEDS: amLODIPine BESYLATE 5 MG TAB PO SCH (09:02)
[2020-11-23] MEDS: HYDROXYUREA 500 MG CAP PO SCH (09:02)
[2020-11-23] MEDS: CHOLECALCIFEROL 1,000 UNITS 25 MCG TAB PO SCH (09:02)
[2020-11-23] MEDS: ENOXAPARIN INJ 40 MG/0.4 ML SYR SQ SCH (09:04)
[2020-11-23] MEDS: cefTRIAXone SODIUM 1,000 MG in DEXTROSE 5% 50 ML IV SCH (13:40)
--- NOTE | 2020-12-01 13:27 | Discharge Summary ---
Date of Service November 23, 2020 Admission HPI Per Admitting Provider 80 YOF with past medical history of HTN, HLD, TIA, 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 Patient comes in today for feeling tired, and urinary complaints of burning in her bladder, and left lower pain in her abdomen and groin. Patient had some teeth extracted in [place] for planned dental implants on Sunday. She was placed on oral PenVK. Her urinary symptoms started after that, she does not notice any urethral discomfort, but with bl adder discomfort. She also states that she had some chills over the weekend. She had a CT scan of her abdomen and pelvis as well as urine analysis done in the [facility]. During her work up, it was noted that she had some variable HR up to the 130s and review of telemetry does show irregular rhythm and variance of p- waves. When I evaluated her, she was in NSR. Her lower abdominal pain and groin pain has been ongoing for the past year and she has been following this with her PCP, urology, and neurology. This has been attributed to her bulging disk and spinal stenosis. She has been taking Motrin for her pain and has been trying to wean off of it. She notes that some of her discomfort in her abdomen is up towards her stomach as well. She remains on her hydroxyurea and ASA for her thrombocytosis and does not report any further neurological or cardiac symptoms, her platelet count is 400 today. Patient will be admitted for monitoring of her HR and rythm as well as following her for relief of her bladder symptoms and back symptoms. She will be followed on telemetry on PCU. Admission Exam Per Admitting Provider General: awake, alert, no apparent distress Head: Normocephalic, atraumatic ENT: PERRL, EOMI, gums where teeth extracted minimal swelling, no drainage or bad taste in patient mouth, no pharyngeal exudate, mucous membranes moist Neuro: AAO x 3, speech clear and appropriate, strength intact bilaterally 5/5, sensation intact and equal all extremities and dermatomes, no pronator drift Chest: equal rise and fall of the chest, no accessory muscle use, no heaves or thrills, Clear to auscultation, on room air, Cardiac: Regular rate and rhythm, telemetry reviewed- NSR with multiple runs of ? afib 100-130, skin warm dry, cap refill <3 seconds, peripheral pulses +2 no JVD, no murmur, no edema GI: NABS x 4 quadrants, soft, nontender to deep and light palpation, no rebound, guarding or tenderness, lymph nodes not enlarged : some discomfort with bladder palpation, Spontaneously voiding, no pain, no CVA tenderness, Extremities: Normal inspection, no peripheral edema or erythema, calfs nontender to palpation Psych: Normal mood and affect Skin: no rash or erythema Principal Diagnosis UTI Discharge Exam Constitutional WD/WN, vitals as above Respiratory normal respiratory effort, lungs clear to auscultation Cardiovascular RRR, no murmur, no edema Gastrointestinal (Abdomen) normal bowel sounds, soft, nontender, no hepatosplenomegaly Neurologic moves all extremities and awake; not confused Discharge Data Allergies Allergy/AdvReac Type Severity Reaction Status Date / Time codeine Allergy Unknown UNKNOWN Verified 11/21/20 13:30 hydrochlorothiazide Allergy Unknown SHORTNESS Verified 11/21/20 13:30 OF BREATH lisinopril AdvReac Severe COUGHING Verified 11/21/20 13:30 quinapril AdvReac Severe COUGHING Verified 11/21/20 13:30 buspirone AdvReac Unknown Verified 11/21/20 13:30 Consultations 11/21/20 13:04 ED Decision to Admit Stat 11/22/20 08:56 Consult Cardiology Routine Ordered Studies 11/21/20 10:41 CT abd pelvis IV con only Stat IMPRESSION: 1. Moderate bladder wall thickening with adjacent fat stranding consistent with a cystitis. Recommend correlation with urinalysis. 2. There is questionable mild pericolonic fat stranding at the sigmoid colon. This could be reactive to the adjacent bladder inflammatory change or represent a low-grade colitis/diverticulitis. Hospital Course (1) UTI (urinary tract infection): Mariela Estrada is an 80 year old female admitted to [facility] from November 21-2020. Due to lower abdominal pain, generalized fatigue and urinary frequency. She was diagnosed with an acute urinary tract infection. This was treated with intravenous ceftriaxone during admission and will be switched to oral cefdinir on discharge. Urine culture is outstanding at time of discharge. 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: Total Time Total Time Spent Total Time Spent (In Minutes): 35 Total Time Includes: Examination of the Patient, Discharge Planning and Medication Reconciliation Discharge Plan Discharge Items Patient Disposition: Home - Self-Care Reason For Visit: UTI/AFIB Discharge Diagnosis: UTI Activity: Resume your previous activity Non-emergency contact: Primary Care Provider Call non-emergency contact if: you have any medication questions and your symptoms worsen Follow-up/Referrals: Miguel Palacio MD [Primary Care Provider] - 12/08/20 11:30 am Diet: Carb Consistent or DM2 Addtl Attending Provider Instructions: You were admitted to [facility] from November 21-2020. Due to lower abdominal pain, generalized fatigue and urinary frequency. You are diagnosed with an acute urinary tract infection. This was treated with intravenous ceftriaxone (antibiotic) during admission and will be switched to oral cefdinir on discharge. Urine culture is outstanding at time of discharge. Pending Studies at Discharge: Yes Stand-Alone Forms: [facility] Medications and DC Order Prescriptions: Continued amlodipine 5 mg tablet 5 mg PO DAILY Qty: 90 RF: 3 atenolol 50 mg tablet 50 mg PO DAILY Qty: 90 RF: 1 atorvastatin 40 mg tablet 40 mg PO HS Qty: 90 RF: 3 lorazepam 1 mg tablet 0.5 - 1 mg PO DAILY PRN (Reason: anxiety) Qty: 90 RF: 0 cyanocobalamin (vitamin B-12) 500 mcg tablet 1,000 mcg PO DAILY RF: 0 cholecalciferol (vitamin D3) 50 mcg (2,000 unit) capsule 2,000 unit PO DAILY Qty: 90 RF: 0 hydroxyurea 500 mg capsule 500 mg PO DAILY Qty: 60 RF: 0 aspirin 81 mg tablet,delayed release (DR/EC) 81 mg PO DAILY RF: 0 ibuprofen 600 mg tablet 600 mg PO QID PRN (Reason: pain) Qty: 120 RF: 5 venlafaxine 75 mg capsule,extended release 24hr 75 mg PO DAILY RF: 0 Discharge Orders: Discharge Order (Routine); Ordered 11/23/20 Ordered By: Flaco Rodriguez Admission Data Admit Date/Time: 11/21/20 13:56 Attending Provider: Flaco Rodriguez Admit Provider: Elie Sheikh Primary Care Provider: Miguel Palacio Other Providers: Elie Sheikh ; Salo Gutierrez Other Interventions: Discharge Summary Assessment (RN) Last Done: 11/23/20 14:52 Coding Level of Care Code D/C Day Management >30 mins Diagnoses UTI (urinary tract infection) N39.0 Urinary tract infection type: site unspecified Hematuria presence: without hematuria HTN (hypertension) I10 Hypertension type: essential hypertension Hypercholesterolemia E78.00 Left lower quadrant abdominal pain R10.32 Lumbar stenosis M48.061 Neurogenic claudication status: unspecified Essential thrombocytosis D47.3 GERD (gastroesophageal reflux disease) K21.9 Esophagitis presence: esophagitis presence not specified Generalized anxiety disorder F41.1 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
== END 2020-11-23 16:20 | disposition home or self-care (01) | DRG 690 ==
LOC: ED 09:10 → SUATTDRO 13:56 → 2S 13:56 → 2W 11-22 15:03

== ENCOUNTER 2024-10-27 07:17 | Inpatient (IN) ==
--- NOTE | 2024-10-27 07:37 | Emergency Department Note ---
Impression & Plan Respiratory illness, Acute sore throat, Failure of outpatient treatment, Elevated WBC count, Elevated procalcitonin ED Provider Note Name: PETTY MERCADO Age: 84 Sex: Female Arrives Via: Walk-In Informant:, Daughter and patient ED Provider: Nish Escobar MD Chief Complaint: Illness Impression: As per impressions above Medical Decision Makin-year-old female with a history of hypertension, GERD, hypercholesterolemia, depression, renal cell adenocarcinoma, others arrives for evaluation of worsening illness. She has been sick for the last week and a half. Has been on a Z-Ruben as well as another antibiotic without any improvement. Continue worsening of body aches increasing sore throat fevers chills and malaise. Examination patient appears a bit dehydrated and tired with a slightly hoarse voice. She does not appear to be an extremis and does not have meningitis by examination. Extensive laboratory workup does reveal an elevated white blood cell count as well as an elevated procalcitonin. Chest x-ray without clear evidence of pneumonia. Given the neck soreness and persistent cough a CT of the chest and neck were obtained. These were also unremarkable for acute concerning finding. In the setting of abnormal labs and worsening symptoms she was given a dose of IV Zosyn empirically while awaiting workup. At this time there is no clear source of infection however with the abnormal workup I do think that hospitalization for monitoring is reasonable. I did discuss this with the hospitalist who will bring her in for further management. I do not feel the patient has severe sepsis or septic shock at time of hospitalization. Triage/Nursing Notes reviewed by Me External Chart Review by me: I reviewed the PCP note from 10/22/2024 discussing patient's initial illness. Differential:Infection, dehydration, metabolic abnormality, hypo/hyperglycemia, electrolyte disturbance, anemia, hypoxia, cardiac sources, intracerebral event, toxicologic, neurologic, as well as other pathologies. Vital Signs: reviewed and remarkable for no significant abnormalities Interventions: Normal Saline bolus IV, Zosyn IV, Dilaudid IV x 2, Zofran IV Labs:ED labs Reviewed by me and remarkable for elevated white blood cell count, elevated procalcitonin Imagin view chest x-ray no infiltrate nor effusion appreciated as per my interpretation. CT of the neck with contrast as per my informal interpretation reveals no abscess nor mass effect appreciated. Confirmed by radiologist. CT of the chest with contrast as per my informal interpretation reveals no pneumonia, pneumothorax, effusion. Confirmed by radiologist. EKG:As per my interpretation. Indication weakness. Normal sinus rhythm at 79 bpm and a QTc of 433. There is no ectopy nor ischemia. When compared to EKG of March 20, 2023 there is no significant change. Cardiac/Tele Monitoring: Cardiac Monitoring: An Order was placed for continuous cardiac monitoring. The monitor shows a rate of 80 with a normal sinus rhythm. Consults:Discussed with Dr. Cox of the hospitalist service who will further evaluate and manage. Plan: Disposition:Hospitalization. Condition: Good History of Present Illness: 84-year-old female arrives for evaluation of illness. Patient has been sick for the last week and a half. She initially been started on Z-Ruben without improvement and thus was switched to new antibiotic few days ago. Unfortunately patient's symptoms have continued. She has sore throat, body ache, fevers, chills, fatigue, weakness and generalized malaise. States she has been eating and drinking as well. Notes significant cough with some shortness of breath at times. She has diffuse body pain right now. She did take Tylenol around 630 this morning for both fevers and diffuse bodyaches. Denies any falls, trauma, or injuries. Denies any focal weakness. Denies any significant abdominal pain flank pain. She is not having any active chest pain at this time. No known sick contacts. Past Medical History:See Below Home Medications:See Below Allergies:See Below Vitals:Blood Pressure: 113/71, Pulse 82, RR 18, T 36.4C, O2 98% on RA Physical Exam: GENERAL: Patient is tired/dehydrated appearing and in mild distress. Somewhat hoarse voice (daughter notes this is improved from last week) RESPIRATORY: No dyspnea. Clear to auscultation and equal bilaterally. CARDIOVASCULAR: Regular rate and rhythm.No murmur appreciated. GASTROINTESTINAL: Abdomen soft, non-tender, no peritonitis. BACK: No midline tenderness, no CVA tenderness EXTREMITIES: Normal motion all extremities, no cyanosis, no edema. NEUROLOGIC: Alert and oriented. No focal neurologic deficits appreciated SKIN: No rash, no jaundice, no diaphoresis. PSYCH: Appropriate GCS: 15 ED Course: Times/Reassessments: Patient did receive some IV pain medications as she is describing such severe diffuse pain. Nish Escobar MD Past Med/Surg History Problem List (Updated 10/27/24 @ 13:47 by Nish Escobar MD) Elevated procalcitonin (Acute) Elevated WBC count (Acute) Failure of outpatient treatment (Acute) Acute sore throat (Acute) Respiratory illness (Acute) Hyponatremia Body aches Fever Sore throat Dysuria Hip pain, right Right lower quadrant abdominal pain Dysphagia Chest discomfort Suprapubic pain Vitamin D insufficiency Renal cell adenocarcinoma Low back pain Chalazion of right eye Lumbar back pain with radiculopathy affecting right lower extremity Depression Medicare annual wellness visit, subsequent Vitamin D deficiency (Acute) Vitamin B12 deficiency (Acute) Renal neoplasm (Acute) Hypercholesterolemia (Acute) Generalized osteoarthritis (Acute) Generalized anxiety disorder (Acute) Essential thrombocytosis (Acute) Essential familial hypercholesterolemia (Acute) GERD (gastroesophageal reflux disease) (Acute) Allergic rhinitis (Acute) HTN (hypertension) (Chronic) Medical History Generalized anxiety disorder History of depression History of dysphagia Urinary frequency Asymptomatic age-related postmenopausal state Fatigue ongoing due to medication Falling hx, "doesn't happen often" Head trauma occurred w/fall in 2022, no residual effects Hx of Clostridium difficile infection dx [facility] 2020-had abx tx Hx of influenza 2021 History of kidney cancer dx 2004, sx only Left lower quadrant abdominal pain "has occasionally"-follows w/pain clinic at [place] Colitis hx Thinning hair Paroxysmal atrial tachycardia "many years ago", had cardiac cath in [place], no stents Insomnia Incomplete bladder emptying Hearing loss 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 blair H/O abdominal surgery ABDOMINAL ADHESIONS REMOVED-ana H/O ovarian cystectomy History of ankle surgery RT History of cardiac cath NO STENTS>"MANY YEARS AGO"; no longer follows w/cardiology H/O tooth extraction History of cataract surgery rt/lt History of partial nephrectomy History of section X 2 History of hysterectomy History of esophagogastroduodenoscopy History of colonoscopy History of cholecystectomy Family History Mother Myocardial infarction Hypertension Stroke Family/Other Hypertension Brother Myocardial infarction Stroke Father Myocardial infarction Other No family history of adverse response to anesthesia Denies family history of Ovarian cancer Prostate cancer Breast cancer Colorectal cancer Social History Smoking Status: Never smoker Second Hand Exposure: Yes (hx, many years ago); Do You Dip or Chew Tobacco: No; Hx Alcohol Use: Yes Alcohol type: wine Hx Substance Use: No Preferred Language: Ukrainian Communication Ability: Effective Visual Impairment: Limited [employer] Targeting Technician Required: No Beliefs That Will Affect Care: None marital status: Current Living Situation: Alone current occupational status: retired Feels Safe at Home: Yes Childhood Exposure to Second-Hand Smoke: Yes caffeine: Yes Dental Care, Regularly: Yes Physical Activity Frequency: Daily Seatbelt Use: always Sunscreen Use: No Assistive Devices: Denture - Lower and Glasses Allergies Allergies Allergy/AdvReac Type Severity Reaction Status Date / Time codeine Allergy Severe seizure Verified 10/22/24 10:41 many years ago hydrochlorothiazide Allergy Severe SHORTNESS Verified 10/22/24 10:41 OF BREATH lisinopril AdvReac Mild COUGHING Verified 10/22/24 10:41 quinapril AdvReac Mild COUGHING Verified 10/22/24 10:41 Home Meds Home Medications Medication Instructions Recorded Confirmed aspirin 81 mg tablet,delayed 81 mg PO QAM 01/10/19 10/27/24 release cyanocobalamin (vitamin B-12) 500 1,000 mcg PO QAM 02/05/20 10/27/24 mcg tablet hydroxyurea 500 mg capsule 500 mg PO UD #60 caps 09/02/20 10/27/24 acetaminophen 325 mg tablet 325 - 650 mg PO QID PRN Pain 03/28/22 10/27/24 diphenhydramine 25 1 tab PO HS PRN Sleep 06/07/22 10/27/24 mg-acetaminophen 500 mg tablet (Tylenol PM Extra Strength) polyethylene glycol 3350 17 17 g PO HS 06/07/22 10/27/24 gram/dose oral powder (Miralax) cholecalciferol (vitamin D3) 50 5,000 unit PO QAM #90 caps 12/01/22 10/27/24 mcg (2,000 unit) capsule lorazepam 1 mg tablet 0.5 mg PO BID PRN anxiety 10/17/24 10/27/24 Previous Rx's Medication Instructions Recorded ondansetron HCl 8 mg tablet 8 mg PO Q8H PRN nausea and 08/25/24 vomiting #30 tabs venlafaxine 150 mg 150 mg PO QAM #30 caps 08/25/24 capsule,extended release 24 hr (Effexor XR) amlodipine 5 mg tablet 5 mg PO QAM #90 tabs 09/02/24 atenolol 50 mg tablet 50 mg PO QAM #90 tabs 09/02/24 azithromycin 250 mg tablet See Rx Instructions PO .COMPLEX #6 10/22/24 (Zithromax Z-Ruben) tabs amoxicillin 875 mg-potassium 1 tab PO BID #20 tabs 10/24/24 clavulanate 125 mg tablet Results & Data (ED) Vital Signs Vital Signs - 24 hr 10/27/24 07:24 10/27/24 07:39 10/27/24 07:39 Temperature 36.4 C L Temperature Source Oral Pulse Rate 82 84 84 Pulse Rate from SpO2 Sensor Pulse Rhythm Respiratory Rate 18 18 Blood Pressure 113/71 123/79 Blood Pressure Mean 85 93 Blood Pressure Position Sitting Pulse Oximetry 98 95 Oxygen Delivery Method Room Air Room Air Sepsis Recent Fever Within 48 Hours No Sepsis New/Unexplained Change in Mental Status No Sepsis Action Taken by Nursing No Action Required 10/27/24 07:48 10/27/24 08:00 10/27/24 08:30 Temperature Temperature Source Pulse Rate 78 79 Pulse Rate from SpO2 Sensor Pulse Rhythm Regular Respiratory Rate 20 16 Blood Pressure 139/76 125/64 Blood Pressure Mean 105 84 Blood Pressure Position Pulse Oximetry 97 95 Oxygen Delivery Method Room Air Room Air Sepsis Recent Fever Within 48 Hours Sepsis New/Unexplained Change in Mental Status Sepsis Action Taken by Nursing 10/27/24 09:30 10/27/24 10:00 10/27/24 10:06 Temperature Temperature Source Pulse Rate 86 80 Pulse Rate from SpO2 Sensor 81 Pulse Rhythm Respiratory Rate 16 16 Blood Pressure 124/67 120/64 Blood Pressure Mean 80 81 Blood Pressure Position Pulse Oximetry 94 92 Oxygen Delivery Method Room Air Room Air Sepsis Recent Fever Within 48 Hours Sepsis New/Unexplained Change in Mental Status Sepsis Action Taken by Nursing 10/27/24 10:33 10/27/24 11:00 10/27/24 11:30 Temperature Temperature Source Pulse Rate 91 H 85 Pulse Rate from SpO2 Sensor 91 H 86 Pulse Rhythm Respiratory Rate 18 18 Blood Pressure 122/76 124/66 106/73 Blood Pressure Mean 91 85 82 Blood Pressure Position Pulse Oximetry 95 92 Oxygen Delivery Method Room Air Room Air Sepsis Recent Fever Within 48 Hours Sepsis New/Unexplained Change in Mental Status Sepsis Action Taken by Nursing 10/27/24 11:39 10/27/24 12:33 10/27/24 13:00 Temperature Temperature Source Pulse Rate 80 81 83 Pulse Rate from SpO2 Sensor 81 81 Pulse Rhythm Respiratory Rate 16 18 20 Blood Pressure 125/61 113/63 Blood Pressure Mean 82 75 Blood Pressure Position Pulse Oximetry 95 92 Oxygen Delivery Method Room Air Room Air Sepsis Recent Fever Within 48 Hours Sepsis New/Unexplained Change in Mental Status Sepsis Action Taken by Nursing 10/27/24 13:15 10/27/24 13:31 Temperature Temperature Source Pulse Rate 81 84 Pulse Rate from SpO2 Sensor Pulse Rhythm Respiratory Rate 20 Blood Pressure 145/73 H Blood Pressure Mean 90 Blood Pressure Position Pulse Oximetry 94 Oxygen Delivery Method Room Air Sepsis Recent Fever Within 48 Hours Sepsis New/Unexplained Change in Mental Status Sepsis Action Taken by Nursing Laboratory Data 10/27/24 07:40 10/27/24 07:40 Lab Results 10/27/24 10/27/24 10/27/24 Range/Units 07:40 08:45 09:20 WBC 16.87 H (4.8-10.8) K/ul RBC 3.76 L (4.20-5.40) M/uL Hgb 13.5 (12.0-16.0) g/dl Hct 38.2 (37.0-47.0) % MCV 101.6 H (80.0-100.0) fL MCH 35.9 H (25.0-34.0) pg MCHC 35.3 (32.0-36.0) g/dL RDW Std Deviation 49.2 H (36.4-46.3) fL RDW Coeff of Raymon 13.4 (11.5-14.5) % Plt Count 353 (130-400) K/uL MPV 9.1 L (9.4-12.4) fL Immature Gran % (Auto) 0.6 % Neut % (Auto) 87.0 % Lymph % (Auto) 4.9 % [place] % (Auto) 6.5 % Eos % (Auto) 0.4 % Baso % (Auto) 0.6 % Neut # (Auto) 14.68 H (1.40-6.50) K/uL Lymph # (Auto) 0.83 L (1.20-3.40) K/uL [place] # (Auto) 1.09 H (0.11-0.59) K/uL Eos # (Auto) 0.07 (0.00-0.50) K/uL Baso # (Auto) 0.10 (0.00-0.20) K/uL Immature Gran # (Auto) 0.10 (0.01-0.20) K/uL Sodium 131 L (136-145) mmol/L Potassium 4.4 (3.5-5.1) mmol/L Chloride 98 (98-107) mmol/L Carbon Dioxide 25 (21-32) mmol/L Anion Gap 8 (3-11) BUN 16 (6-23) mg/dl Creatinine 0.79 (0.6-1.2) mg/dl Est Cr Clr Drug Dosing Not Reportable eGFR 73.26 BUN/Creatinine Ratio 20.3 H (10-20) Glucose 149 H (70-99(Fasting)) mg/dl Lactate 1.9 (0.4-2.0) mmol/L Calcium 9.1 (8.6-10.3) mg/dl Magnesium 1.8 (1.7-2.4) mg/dl Total Bilirubin 0.4 (0.2-1.0) mg/dl Direct Bilirubin TNP AST 25 (13-39) U/L ALT 18 (7-52) U/L Alkaline Phosphatase 55 (34-104) U/L Troponin I High Sens 5.3 (0-14) pg/ml Total Protein 7.2 (6.0-8.3) gm/dl Albumin 3.8 (3.4-5.0) gm/dl Procalcitonin 1.19 H (0-0.5) ng/ml Urine Color Yellow Urine Appearance Clear (Clear) Urine pH 6.5 (4.5-7.5) Ur Specific [place] 1.019 (1.000-1.030) Urine Protein Negative (Negative) Urine Glucose (UA) Negative (Negative) Urine Ketones Negative (Negative) Urine Blood Negative (Negative) Urine Nitrite Negative (Negative) Urine Bilirubin Negative (Negative) Urine Urobilinogen Negative (Negative) Ur Leukocyte Esterase Negative (Negative) Lyme Disease Screen Negative (Negative) SARS-CoV-2 (PCR) NEGATIVE (Negative) Influenza Type A (PCR) Negative (Neg) Influenza Type B (PCR) Negative (Neg) RSV (RT-PCR) Negative (Neg) Group A Strep (PCR) NOT DETECTED (NotDetected) Administered Medications Discontinued Medications Hydromorphone HCl (Hydromorphone Inj 0.5 Mg/0.5 Ml Syr) 0.5 mg IV NOW STA Stop: 10/27/24 08:09 Last Admin: 10/27/24 08:12 Dose: 0.5 mg Documented By: Hydromorphone HCl (Hydromorphone Inj 0.5 Mg/0.5 Ml Syr) 0.5 mg IV NOW STA Stop: 10/27/24 09:28 Last Admin: 10/27/24 09:33 Dose: 0.5 mg Documented By: Sodium Chloride (Nss) 1,000 mls @ 999 mls/hr IV .Q1H1M WILLIAM Stop: 10/27/24 08:45 Last Infusion: 10/27/24 08:47 Dose: Infused Documented By: Admin: 10/27/24 07:44 Dose: 999 mls/hr Documented By: Piperacillin Sod/Tazobactam Sod (Zosyn) 4.5 gm in 100 mls @ 200 mls/hr IV NOW ONE; Protocol Stop: 10/27/24 08:59 Last Infusion: 10/27/24 09:30 Dose: Infused Documented By: Admin: 10/27/24 08:46 Dose: 200 mls/hr Documented By: Ioversol (Optiray 320 100ml) 94 ml IV ONCE ONE Stop: 10/27/24 09:06 Last Admin: 10/27/24 09:05 Dose: 94 ml Documented By: SIGRID Ondansetron HCl (Ondansetron Inj 2 Mg/Ml 2 Ml Vial) 4 mg IV NOW STA Stop: 10/27/24 08:09 Last Admin: 10/27/24 08:12 Dose: 4 mg Documented By: Imaging Data Radiologist's Impression: Chest X-Ray 10/27/24 07:34 EXAM: XR chest 1V portable CLINICAL HISTORY: Sepsis TECHNIQUE: An X-ray image of the chest is obtained using an AP projection. COMPARISON: 03/20/23 previous chest X-ray study. FINDINGS: Pulmonary Parenchyma: Lungs are clear bilaterally. No evidence of consolidation, collapse, or focal opacities. Stable prominent lung markings; expected senile changes. No pulmonary nodules are identified. Right diaphragmatic hump again noted/variant. No evidence of pleural effusion or pleural thickening. Heart and Mediastinum: Heart size and shape are normal. Mild aortic atherosclerotic calcifications, unchanged. No mediastinal widening or masses. No hilar or mediastinal lymphadenopathy. Bony Thorax: Bony thorax appears intact without fractures or deformities. Dorsal spondyloarthrosis, unchanged. Soft Tissues: Soft tissues overlying the chest wall are unremarkable. IMPRESSION: No acute cardiopulmonary abnormalities are identified. No interval changes since prior. Electronically signed by Chris Kyle 10-27-2024 08:[address] 10/27/24 08:30 CT SCAN OF THE CHEST WITH IV CONTRAST CLINICAL HISTORY: Shortness of breath. Chest tightness. COMPARISON STUDY: Chest CT August 12, 2010. Chest radiograph performed earlier today. TECHNIQUE: Following the IV administration of 94 cc of Optiray 320, CT scan of the thorax was performed from the thoracic inlet to the upper abdomen. Images are reviewed in the axial, sagittal, and coronal planes. IV contrast was administered without complication. A dose lowering technique was utilized adhering to the principles of ALARA. CT DOSE: 797.53 mGy.cm FINDINGS: Thyroid: Unremarkable. Thoracic aorta: The caliber of the thoracic aorta is normal. No dissection is seen. Pulmonary vasculature: The caliber of the pulmonary trunk is normal. There are no filling defects identified in the central pulmonary vessels to indicate pulmonary embolus. Note that this examination was not protocoled for evaluation of the pulmonary arteries. Heart: The size of the heart is normal. There is no pericardial effusion. Lungs and pleural spaces: There is no pneumothorax or pleural effusion. A few scattered subpleural groundglass opacities are present. No consolidation is present. Mediastinum: There is no mediastinal lymphadenopathy. There is a small hiatal hernia. [place]: There is no hilar adenopathy. Axillae: There is no axillary lymphadenopathy. Upper abdomen: Biliary ductal dilatation is likely related to cholecystectomy. Skeletal structures: No lytic or blastic bony lesions are seen. Breast: A right retroareolar 1.6 cm nodule is unchanged since CT of August 12, 2010. This is benign given stability. IMPRESSION: 1. A few scattered small subpleural groundglass opacities which favor a mild infectious process. A chest CT in 3 months to ensure resolution is recommended. No consolidation. 2. No thoracic lymphadenopathy. 3. Small hiatal hernia. 4. Mild biliary ductal dilatation. This is likely related to cholecystectomy although could be correlated with liver function tests. ACT 112: Negative or not required by law. Electronically signed by: Darin Bell M.D. 10/27/2024 9:32 AM Soft Tissue Neck CT 10/27/24 08:30 CT soft tissue neck w con HISTORY: 84 years-old Female fever, wbc elevation, sore neck acute neck pain with fever COMPARISON: Chest CT of same day TECHNIQUE: Multiple axial CT images of the soft tissues of the neck were obtained with IV contrast. A dose lowering technique was used consistent with the principals of ALARA. FINDINGS: Involutional changes of the brain parenchyma with probable chronic microvascular ischemic disease. Prior bilateral lens repair. Streak artifact from dental amalgam hardware. The opacified vascular structures of the neck appear to be within normal limits. There are no pathologically enlarged lymph nodes, acute inflammatory changes, fluid collections or suspicious lesions identified. Unremarkable thyroid, and parotid glands with atrophic submandibular glands. The lung apices appear to be clear without pneumothorax. Degenerative changes of the cervical spine. Rightward bowing and spurring of the nasal septum. Mastoid air cells are clear. Unremarkable appearance of the epiglottis and subglottic airway. Epiglottis also appears normal. IMPRESSION: 1. No acute inflammatory changes or fluid collections. 2. No pathologically enlarged lymph nodes. ACT 112: Negative or not required by law. The above report was generated using voice recognition software. It may contain grammatical, syntax or spelling errors. Electronically signed by: Aashish Mahan M.D. 10/27/2024 9:18 AM Discharge Plan Visit Data Chief Complaint: Illness Stated Complaint: CHEST PAIN,COUGH,BODY ACHE, HEADACHE ED Provider: Nish Escobar Discharge Problem: Respiratory illness, Acute sore throat, Failure of outpatient treatment, Elevated WBC count, Elevated procalcitonin Forms Stand Alone Forms: [facility] Prescriptions Prescriptions: No Action atenolol 50 mg tablet 50 mg PO QAM Qty: 90 3RF amlodipine 5 mg tablet 5 mg PO QAM Qty: 90 3RF amoxicillin-pot clavulanate 875-125 mg tablet 1 tab PO BID Qty: 20 0RF cyanocobalamin (vitamin B-12) 500 mcg tablet 1,000 mcg PO QAM Rx Instructions: 10/27- otc unable to verify cholecalciferol (vitamin D3) 50 mcg (2,000 unit) capsule 5,000 unit PO QAM Qty: 90 Rx Instructions: 10/27- otc unable to verify hydroxyurea 500 mg capsule 500 mg PO UD Qty: 60 Rx Instructions: 500 mg po bid. Per recent fill history directions are 1000 mg po Sunday, Sunday, Sunday. 500 mg po rest of days aspirin 81 mg tablet,delayed release (DR/EC) 81 mg PO QAM Patient Comments: Patient is pretty sure she took her morning meds around 0900. She was second guessing because she was in a hurry to get here. Rx Instructions: 10/27- otc unable to verify azithromycin [Zithromax Z-Ruben] 250 mg tablet See Rx Instructions PO .COMPLEX Qty: 6 0RF Rx Instructions: take 500 mg today (day 1), then 250 mg for 4 days (days 2-5) PO ondansetron HCl 8 mg tablet 8 mg PO Q8H PRN (Reason: nausea and vomiting) Qty: 30 3RF venlafaxine [Effexor XR] 150 mg capsule,extended release 24hr 150 mg PO QAM Qty: 30 11RF Rx Instructions: Take with breakfast for mood acetaminophen 325 mg Tablet 325 - 650 mg PO QID PRN (Reason: Pain) Rx Instructions: 10/27- otc unable to verify diphenhydramine-acetaminophen [Tylenol PM Extra Strength] 25-500 mg Tablet 1 tab PO HS PRN (Reason: Sleep) Rx Instructions: 10/27- otc unable to verify polyethylene glycol 3350 [Miralax] 17 gram/dose powder 17 g PO HS Patient Comments: only uses prn Rx Instructions: Take per split dose instructions 10/27- otc unable to verify lorazepam 1 mg tablet 0.5 mg PO BID PRN (Reason: anxiety) Referrals Referrals: Miguel Palacio MD [Primary Care Provider] - Discharge Problem: Elevated WBC count Qualifiers: Leukocytosis type: unspecified Qualified Code(s): D72.829 - Elevated white blood cell count, unspecified
[2024-10-27] MEDS: SODIUM CHLORIDE 0.9% 1,000 ML IV SCH ×2 (07:44→15:06)
[2024-10-27 07:57] LABS: Hematocrit (blood only) 38.2 % (37.0-47.0); Hemoglobin 13.5 g/dl (12.0-16.0); Mean Corpuscular Hemoglobin 35.9 pg (25.0-34.0); Mean Corpuscular Hgb Conc 35.3 g/dL (32.0-36.0); Mean Corpuscular Volume 101.6 fL (80.0-100.0); RDW Standard Deviation 49.2 fL (36.4-46.3); Red Blood Count 3.76 M/uL (4.20-5.40); White Blood Count 16.87 K/ul (4.8-10.8)
[2024-10-27 07:58] LABS: Basophils % (auto) 0.6 %; Eosinophils # (auto) 0.07 K/uL (0.00-0.50); Eosinophils % (auto) 0.4 %; Immature Granulocytes % (auto) 0.6 %; Lymphocytes # (auto) 0.83 K/uL (1.20-3.40); Lymphocytes % (auto) 4.9 %; Mean Platelet Volume 9.1 fL (9.4-12.4); Monocytes # (auto) 1.09 K/uL (0.11-0.59); Monocytes % (auto) 6.5 %; Neutrophils # (auto) 14.68 K/uL (1.40-6.50); Platelet Count 353 K/uL (130-400); RDW Coefficient of Variation 13.4 % (11.5-14.5)
[2024-10-27] MEDS: ONDANSETRON INJ 2 MG/ML 2 ML VIAL IV STA (08:12)
[2024-10-27] MEDS: HYDROmorphone INJ 0.5 MG/0.5 ML SYR IV STA ×2 (08:12→09:33)
[2024-10-27 08:26] LABS: Alanine Aminotransferase 18 U/L (7-52); Albumin Level 3.8 gm/dl (3.4-5.0); Alkaline Phosphatase 55 U/L (34-104); Anion Gap 8 (3-11); Aspartate Aminotransferase 25 U/L (13-39); BUN Creatinine Ratio 20.3 (10-20); Bilirubin,Total 0.4 mg/dl (0.2-1.0); Blood Urea Nitrogen 16 mg/dl (6-23); Calcium 9.1 mg/dl (8.6-10.3); Carbon Dioxide 25 mmol/L (21-32); Chloride 98 mmol/L (98-107); Glucose 149 mg/dl (70-99(Fasting)); Magnesium 1.8 mg/dl (1.7-2.4); Potassium 4.4 mmol/L (3.5-5.1); Sodium 131 mmol/L (136-145); Total Protein 7.2 gm/dl (6.0-8.3); Troponin I High Sensitivity 5.3 pg/ml (0-14)
[2024-10-27] MEDS: PIPERACILLIN/TAZOBACTAM 4.5 GM/100 ML BAG IV ONE (08:46)
[2024-10-27 08:53] LABS: Influenza A virus by PCR Negative (Neg); Influenza B virus by PCR Negative (Neg); RSV by PCR Negative (Neg); SARS CoV2 RNA(COVID-19) Ceph NEGATIVE (Negative)
--- NOTE | 2024-10-27 08:58 | XRay Report ---
EXAM: XR chest 1V portable CLINICAL HISTORY: Sepsis TECHNIQUE: An X-ray image of the chest is obtained using an AP projection. COMPARISON: 03/20/23 previous chest X-ray study. FINDINGS: Pulmonary Parenchyma: Lungs are clear bilaterally. No evidence of consolidation, collapse, or focal opacities. Stable prominent lung markings; expected senile changes. No pulmonary nodules are identified. Right diaphragmatic hump again noted/variant. No evidence of pleural effusion or pleural thickening. Heart and Mediastinum: Heart size and shape are normal. Mild aortic atherosclerotic calcifications, unchanged. No mediastinal widening or masses. No hilar or mediastinal lymphadenopathy. Bony Thorax: Bony thorax appears intact without fractures or deformities. Dorsal spondyloarthrosis, unchanged. Soft Tissues: Soft tissues overlying the chest wall are unremarkable. IMPRESSION: No acute cardiopulmonary abnormalities are identified. No interval changes since prior. Electronically signed by Chris Kyle 10-27-2024 08:58 AM
[2024-10-27] MEDS: OPTIRAY 320 100ml IV ONE (09:05)
--- NOTE | 2024-10-27 09:20 | CT Scan Report ---
CT soft tissue neck w con HISTORY: 84 years-old Female fever, wbc elevation, sore neck acute neck pain with fever COMPARISON: Chest CT of same day TECHNIQUE: Multiple axial CT images of the soft tissues of the neck were obtained with IV contrast. A dose lowering technique was used consistent with the principals of GENARO. FINDINGS: Involutional changes of the brain parenchyma with probable chronic microvascular ischemic disease. Pr ior bilateral lens repair. Streak artifact from dental amalgam hardware. The opacified vascular struc tures of the neck appear to be within normal limits. There are no pathologically enlarged lymph nodes, acute inflammatory changes, fluid collections or victor spicious lesions identified. Unremarkable thyroid, and parotid glands with atrophic submandibular gla nds. The lung apices appear to be clear without pneumothorax. Degenerative changes of the cervical sp ine. Rightward bowing and spurring of the nasal septum. Mastoid air cells are clear. Unremarkable koki earance of the epiglottis and subglottic airway. Epiglottis also appears normal. IMPRESSION: 1. No acute inflammatory changes or fluid collections. 2. No pathologically enlarged lymph nodes. ACT 112: Negative or not required by law. The above report was generated using voice recognition software. It may contain grammatical, syntax o r spelling errors. Electronically signed by: Aashish Mahan M.D. 10/27/2024 9:18 AM
--- NOTE | 2024-10-27 09:34 | CT Scan Report ---
CT SCAN OF THE CHEST WITH IV CONTRAST CLINICAL HISTORY: Shortness of breath. Chest tightness. COMPARISON STUDY: Chest CT August 12, 2010. Chest radiograph performed earlier today. TECHNIQUE: Following the IV administration of 94 cc of Optiray 320, CT scan of the thorax was perform ed from the thoracic inlet to the upper abdomen. Images are reviewed in the axial, sagittal, and swapna nal planes. IV contrast was administered without complication. A dose lowering technique was utilize d adhering to the principles of ALARA. CT DOSE: 797.53 mGy.cm FINDINGS: Thyroid: Unremarkable. Thoracic aorta: The caliber of the thoracic aorta is normal. No dissection is seen. Pulmonary vasculature: The caliber of the pulmonary trunk is normal. There are no filling defects nick ntified in the central pulmonary vessels to indicate pulmonary embolus. Note that this examination wa s not protocoled for evaluation of the pulmonary arteries. Heart: The size of the heart is normal. There is no pericardial effusion. Lungs and pleural spaces: There is no pneumothorax or pleural effusion. A few scattered subpleural gr oundglass opacities are present. No consolidation is present. Mediastinum: There is no mediastinal lymphadenopathy. There is a small hiatal hernia. Maricruz: There is no hilar adenopathy. Axillae: There is no axillary lymphadenopathy. Upper abdomen: Biliary ductal dilatation is likely related to cholecystectomy. Skeletal structures: No lytic or blastic bony lesions are seen. Breast: A right retroareolar 1.6 cm nodule is unchanged since CT of August 12, 2010. This is benign given stability. IMPRESSION: 1. A few scattered small subpleural groundglass opacities which favor a mild infectious process. A est CT in 3 months to ensure resolution is recommended. No consolidation. 2. No thoracic lymphadenopathy. 3. Small hiatal hernia. 4. Mild biliary ductal dilatation. This is likely related to cholecystectomy although could be correl ated with liver function tests. ACT 112: Negative or not required by law. Electronically signed by: Darin Bell M.D. 10/27/2024 9:32 AM
[2024-10-27 09:48] LABS: Appearance Urine Clear (Clear); Bilirubin Urine Negative (Negative); Blood Urine Negative (Negative); Color Urine Yellow; Glucose Urine UA Negative (Negative); Ketones Urine Negative (Negative); Leukocyte Esterase Urine Negative (Negative); Nitrite Urine Negative (Negative); Protein Urine Negative (Negative); Specific Gravity Urine 1.019 (1.000-1.030); Urobilinogen Urine Negative (Negative); pH Urine 6.5 (4.5-7.5)
[2024-10-27] MEDS ORDERED: ONDANSETRON INJ 2 MG/ML 2 ML VIAL IV PRN (11:11)
[2024-10-27] MEDS ORDERED: POLYETHYLENE (MIRALAX) 17 GM PACK PO PRN (11:11)
--- NOTE | 2024-10-27 12:16 | History & Physical Report ---
Date of Service October 27, 2024 Assessment & Plan (1) Body aches: (2) Fever: (3) Sore throat: (4) Hip pain, right: (5) Dysphagia: (6) Lumbar back pain with radiculopathy affecting right lower extremity: (7) Hypercholesterolemia: (8) Essential thrombocytosis: (9) HTN (hypertension): (10) Hyponatremia: Plan 84 yr F w/ PMHx of HTN, HLD, GERD, peripheral neuropathy w/ 1.5 weeks of sore throat, productive cough, pleuritic chest pain, leukocytosis with neutrophilia, CT showing subpleural ground-glass opacities without consolidation #Pneumonia vs Atypical Pneumonia vs viral URI - CXR no cardiopulm findings - Chest CT small subpleural ground glass opacities, no consolidation - neck CT shows no acute findings, pathological lymph node - negative influenza, COVID, GAS panel - discontinue home antibiotics, begin IV Zosyn - acetaminophen PRN for fevers/malaise - continue to monitor for worsening of resp symptoms #Mild Hyponatremia - normal saline for dehydration #Intermittent Vomiting - hx of intermittent vomiting that happens aprox. once per month, sometimes triggered by bowel movements - ondansetron PRN for vomiting - EGD was planned for 10/28, will be rescheduled d/t hospital admission #Hypertension - continue amlodipine, atenolol #Depression/ROBERT - continue venlafaxine #Vit B12 Deficiency - continue B12 tablet Dispo: Med/ Surg tele VTE Prophylaxis: SCD Knee/ Mechanical Code: Full Code History of Present Illness Chief Complaint: 1.5 weeks of sore throat, fatigue, and productive cough Primary Care Provider: Miguel Palacio MD 84 yr F w/ PMHx of hypertension, hyperlipidemia, GERD s/p fundoplication, and lower extremity peripheral neuropathy presenting w/ 1.5 weeks of severe sore throat, fatigue, and productive cough. Patient began feeling ill on Sunday evening with onset of severe, constant sore throat. She then developed fevers, chills, myalgia, fatigue, and general malaise. She was started on a 5-day Z-Ruben on Sunday but had little improvement. Amoxicillin-clavulanate was added on Sunday, and she continued taking both. Symptoms have remained unchanged despite both antibiotics. She currently reports sore throat, dysphagia, productive cough with thick green sputum, bilateral frontal headache, facial pain near the jaw, and pleuritic chest pain only with deep breaths. She denies dyspnea, chest pain at rest, ear pain/fullness, sinus pressure, or changes to bowel or bladder habits. This morning, she took Tylenol around 6:30 AM for fever and body aches, and came to the ED because symptoms were not improving. Allergies Allergy/AdvReac Type Severity Reaction Status Date / Time codeine Allergy Severe seizure Verified 10/22/24 10:41 many years ago hydrochlorothiazide Allergy Severe SHORTNESS Verified 10/22/24 10:41 OF BREATH lisinopril AdvReac Mild COUGHING Verified 10/22/24 10:41 quinapril AdvReac Mild COUGHING Verified 10/22/24 10:41 Home Medications Medication Instructions Recorded Confirmed Type aspirin 81 mg tablet,delayed 81 mg PO QAM 01/10/19 10/27/24 History release cyanocobalamin (vitamin B-12) 500 1,000 mcg PO QAM 02/05/20 10/27/24 History mcg tablet hydroxyurea 500 mg capsule 500 mg PO UD #60 caps 09/02/20 10/27/24 History acetaminophen 325 mg tablet 325 - 650 mg PO QID PRN Pain 03/28/22 10/27/24 History diphenhydramine 25 1 tab PO HS PRN Sleep 06/07/22 10/27/24 History mg-acetaminophen 500 mg tablet (Tylenol PM Extra Strength) polyethylene glycol 3350 17 17 g PO HS 06/07/22 10/27/24 History gram/dose oral powder (Miralax) cholecalciferol (vitamin D3) 50 5,000 unit PO QAM #90 caps 12/01/22 10/27/24 History mcg (2,000 unit) capsule ondansetron HCl 8 mg tablet 8 mg PO Q8H PRN nausea and 08/25/24 10/27/24 Rx vomiting #30 tabs venlafaxine 150 mg 150 mg PO QAM #30 caps 08/25/24 10/27/24 Rx capsule,extended release 24 hr (Effexor XR) amlodipine 5 mg tablet 5 mg PO QAM #90 tabs 09/02/24 10/27/24 Rx atenolol 50 mg tablet 50 mg PO QAM #90 tabs 09/02/24 10/27/24 Rx lorazepam 1 mg tablet 0.5 mg PO BID PRN anxiety 10/17/24 10/27/24 History azithromycin 250 mg tablet See Rx Instructions PO .COMPLEX #6 10/22/24 10/27/24 Rx (Zithromax Z-Ruben) tabs amoxicillin 875 mg-potassium 1 tab PO BID #20 tabs 10/24/24 10/27/24 Rx clavulanate 125 mg tablet Past Med/Surg History Problem List (Updated 10/27/24 @ 13:47 by Nish Escobar MD) Elevated procalcitonin (Acute) Elevated WBC count (Acute) Failure of outpatient treatment (Acute) Acute sore throat (Acute) Respiratory illness (Acute) Hyponatremia Body aches Fever Sore throat Dysuria Hip pain, right Right lower quadrant abdominal pain Dysphagia Chest discomfort Suprapubic pain Vitamin D insufficiency Renal cell adenocarcinoma Low back pain Chalazion of right eye Lumbar back pain with radiculopathy affecting right lower extremity Depression Medicare annual wellness visit, subsequent Vitamin D deficiency (Acute) Vitamin B12 deficiency (Acute) Renal neoplasm (Acute) Hypercholesterolemia (Acute) Generalized osteoarthritis (Acute) Generalized anxiety disorder (Acute) Essential thrombocytosis (Acute) Essential familial hypercholesterolemia (Acute) GERD (gastroesophageal reflux disease) (Acute) Allergic rhinitis (Acute) HTN (hypertension) (Chronic) Medical History Generalized anxiety disorder History of depression History of dysphagia Urinary frequency Asymptomatic age-related postmenopausal state Fatigue ongoing due to medication Falling hx, "doesn't happen often" Head trauma occurred w/fall in 2022, no residual effects Hx of Clostridium difficile infection dx [facility] 2020-had abx tx Hx of influenza 2021 History of kidney cancer dx 2004, sx only Left lower quadrant abdominal pain "has occasionally"-follows w/pain clinic at [place] Colitis hx Thinning hair Paroxysmal atrial tachycardia "many years ago", had cardiac cath in [place], no stents Insomnia Incomplete bladder emptying Hearing loss 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 blair H/O abdominal surgery ABDOMINAL ADHESIONS REMOVED-ana H/O ovarian cystectomy History of ankle surgery RT History of cardiac cath NO STENTS>"MANY YEARS AGO"; no longer follows w/cardiology H/O tooth extraction History of cataract surgery rt/lt History of partial nephrectomy History of section X 2 History of hysterectomy History of esophagogastroduodenoscopy History of colonoscopy History of cholecystectomy Family History Mother Myocardial infarction Hypertension Stroke Family/Other Hypertension Brother Myocardial infarction Stroke Father Myocardial infarction Other No family history of adverse response to anesthesia Denies family history of Ovarian cancer Prostate cancer Breast cancer Colorectal cancer Social History Smoking Status: Never smoker Second Hand Exposure: Yes (hx, many years ago); Do You Dip or Chew Tobacco: No; Hx Alcohol Use: Yes Alcohol type: wine Hx Substance Use: No Preferred Language: Bengali Communication Ability: Effective Visual Impairment: Limited Fuel Efficient Automobile Designer Required: No Beliefs That Will Affect Care: None marital status: Current Living Situation: Alone current occupational status: retired Feels Safe at Home: Yes Childhood Exposure to Second-Hand Smoke: Yes caffeine: Yes Dental Care, Regularly: Yes Physical Activity Frequency: Daily Seatbelt Use: always Sunscreen Use: No Assistive Devices: Denture - Lower and Glasses Physical Exam Constitutional: WD/WN, vitals as above ENMT: external ear and nose normal, oropharynx normal Neck: trachea midline, no thyromegaly Respiratory: normal respiratory effort, lungs clear to auscultation Cardiovascular: RRR, no murmur, no edema Gastrointestinal (Abdomen): normal bowel sounds, soft, nontender, no hepatosplenomegaly Results & Data Results & Data Vital Signs (Past 12 Hours) Vital Signs Temp Pulse Resp BP Pulse Ox O2 Del Method 10/27/24 10:33 91 H 18 122/76 95 Room Air 10/27/24 10:06 80 16 92 Room Air 10/27/24 10:00 120/64 10/27/24 09:30 86 16 124/67 94 Room Air 10/27/24 08:30 79 16 125/64 95 Room Air 04/28/25 08:00 139/76 10/27/24 07:48 78 20 97 Room Air 10/27/24 07:39 84 18 123/79 95 Room Air 10/27/24 07:39 84 10/27/24 07:24 36.4 C L 82 18 113/71 98 Room Air Supervising Physician Co-Signing Physician Notes ATTESTATION I also saw the patient with the medical student and the PGY1 resident and completed an independent history and exam. I agree with the impression and plan in the resident documentation, and as summarized below. Patient complains of generalized body aches and sore throat. Outpatient antibiotics without improvement. EXAM Afebrile, VS stable. She appears non toxic; Alert and oriented. NAD, Throat with mild erythema; TMs clear; neck supple. CV RRR Lungs CTA ABD soft and non tender. DATA Labs WBC 16.87 Sodium 131, Potassium 4.4, BUN 16, Cr 0.[address] soft tissue neck unremarkable CT chest subpleural groundglass opacities CXR NAD Micro Blood cultures pending IMPRESSION & PLAN URI Leukocytosis Hyponatremia Prolonged generalized illness with leukocytosis Sore throat and myalgias predominant symptom, although exam fairly normal Agree with antibiotics pending blood culture Gentle IVF and recheck serum sodium in AM Additional per resident documentation Resident Activity Tracking Resident Involvement: Resident Care Provided Care Provided: Adult Hospital Medicine Resident Supervision Co-Signing Physician Notes I independently took history, did physical exam and discussed case with med student Halley and attending. Miss Estrada endorses URI sx more for 1 week, fever, sore throat, difficulty swallowing, change in voice, come facial pain. No LRI sx except some intermittent cough. System review : no URTI sx, no new neurological sx, no belly pain. Normal Bowel/ Bladder. Exam: dehydrated, BL LL neuropathy, Normal appearing throat with mild congestion, BL ears clear. BL lungs clear, normal heart exam. CT chest : small subpleural groundglass opacity, no consolidation. WBCs elevated,neutrophil predominant, Procal: Mild elevated BLood/ Urine CS: sent Assessment/ Plan: - URI vs laryngitis vs LRI in imaging: Antibiotics for prolonged sickness and imaging finding. Continue Zosyn as started by ED team, until culture result. Will follow labs. - Mild hyponatremia: Poor intake. NSS for dehydration. Encourage PO. - Chronic issue: stable, continue prev meds( med rec done at ED today) (9) HTN (hypertension) Hypertension type: essential hypertension Qualified Code(s): I10 - Essential (primary) hypertension
[2024-10-27] MEDS ORDERED: ONDANSETRON 4 MG OD TAB PO PRN (14:53)
[2024-10-27] MEDS: ACETAMINOPHEN 325 MG TAB PO PRN (14:54)
[2024-10-27] MEDS: Patient's HEIGHT &/or WEIGHT Needed STA (15:06)
[2024-10-27] MEDS: LORazepam 0.5 MG TAB PO PRN (15:07)
[2024-10-27] MEDS: PIPERACILLIN/TAZOBACTAM 4.5 GM/100 ML BAG IV SCH (15:11)
[2024-10-27] MEDS: diphenhydrAMINE Capsule 25 MG CAP PO PRN (20:14)
[2024-10-27] MEDS: POLYETHYLENE (MIRALAX) 17 GM PACK PO SCH (20:15)
[2024-10-27] MEDS: KETOROLAC TROMETHAMINE 10 MG TABLET PO STA (22:26)
[2024-10-28 03:56] LABS: Basophils # (auto) 0.07 K/uL (0.00-0.20); Basophils % (auto) 0.7 %; Eosinophils # (auto) 0.16 K/uL (0.00-0.50); Eosinophils % (auto) 1.5 %; Hematocrit (blood only) 30.2 % (37.0-47.0); Hemoglobin 10.6 g/dl (12.0-16.0); Immature Granulocytes # (auto) 0.06 K/uL (0.01-0.20); Immature Granulocytes % (auto) 0.6 %; Lymphocytes # (auto) 1.42 K/uL (1.20-3.40); Lymphocytes % (auto) 13.2 %; Mean Corpuscular Hemoglobin 35.8 pg (25.0-34.0); Mean Corpuscular Hgb Conc 35.1 g/dL (32.0-36.0); Mean Platelet Volume 9.2 fL (9.4-12.4); Monocytes # (auto) 1.46 K/uL (0.11-0.59); Monocytes % (auto) 13.6 %; Neutrophils # (auto) 7.58 K/uL (1.40-6.50); Neutrophils % (auto) 70.4 %; Platelet Count 302 K/uL (130-400); RDW Coefficient of Variation 13.3 % (11.5-14.5); RDW Standard Deviation 50.1 fL (36.4-46.3); Red Blood Count 2.96 M/uL (4.20-5.40); White Blood Count 10.75 K/ul (4.8-10.8)
[2024-10-28 04:03] LABS: BUN Creatinine Ratio 14.9 (10-20); Calcium 8.1 mg/dl (8.6-10.3); Creatinine Clr Calc Pharmacy 52.9 ml/min; Potassium 3.5 mmol/L (3.5-5.1)
[2024-10-28] MEDS: VENLAFAXINE HCL XR 150 MG CAPXR PO SCH (08:34)
[2024-10-28] MEDS: CYANOCOBALAMIN (B-12) 500 MCG TABLET PO SCH (08:34)
[2024-10-28] MEDS: HYDROXYUREA 500 MG CAP PO SCH (08:34)
[2024-10-28] MEDS: ATENOLOL 50 MG TABLET PO SCH (08:35)
[2024-10-28] MEDS: ASPIRIN 81 MG ECTAB PO SCH (08:35)
[2024-10-28] MEDS: amLODIPine BESYLATE 5 MG TAB PO SCH (08:35)
[2024-10-28] MEDS: CHOLECALCIFEROL 125 MCG (5,000 UNITS) TAB PO SCH (08:35)
--- NOTE | 2024-10-28 11:16 | Hospitalist Progress Note ---
Date of Service October 28, 2024 Assessment & Plan (1) Body aches: (2) Fever: (3) Sore throat: (4) Hip pain, right: (5) Dysphagia: (6) Lumbar back pain with radiculopathy affecting right lower extremity: (7) Hypercholesterolemia: (8) Essential thrombocytosis: (9) HTN (hypertension): (10) Hyponatremia: Plan 84 yr F w/ PMHx of HTN, HLD, GERD, peripheral neuropathy, depression, ROBERT w/ 1.5 weeks of sore throat, productive cough, pleuritic chest pain, leukocytosis with neutrophilia, CT showing subpleural ground-glass opacities without consolidation #Pneumonia vs Atypical Pneumonia vs viral URI - CXR: no cardiopulm findings - Chest CT: small subpleural ground glass opacities, no consolidation - neck CT: no acute findings, no pathological lymph node - negative influenza, COVID, GAS, Lyme panel - continue IV Zosyn - WBC 16.87 trending down to 10.75 - acetaminophen PRN for fevers/malaise - continue to monitor for worsening of resp symptoms - pending blood cultures - PT/OT evaluation appreciated #Mild Hyponatremia - on arrival Na+ 131 -> 134 - continue normal saline for dehydration #Intermittent Vomiting - hx of intermittent vomiting that happens aprox. once per month, sometimes triggered by bowel movements - ondansetron PRN for vomiting - EGD was planned for 10/28, will be rescheduled d/t hospital admission #Hypertension - continue amlodipine, atenolol #Depression/ROBERT - patient mentions recent medication changes - continue venlafaxine 150 mg PO #Vit B12 Deficiency - continue B12 tablet #Essential Thrombocytosis - continue hydroxyurea Dispo: Med/ Surg tele VTE Prophylaxis: SCD Knee/ Mechanical Code: Full Code Admission and Anticipated Discharge Date Admission Date: October 27, 2024 Supervising Physician Co-Signing Physician Notes ATTESTATION I also saw the patient with the medical student and the PGY1 resident and completed an independent history and exam. I agree with the impression and plan in the resident documentation, and as summarized below. Looks and feels a little better today. Throat does not hurt. She still complains of decreased energy as well as overall fatigue. EXAM Afebrile, VS stable. She appears non toxic; Alert and oriented. NAD, Throat with mild erythema; TMs clear; neck supple. CV RRR Lungs CTA ABD soft and non tender. DATA Labs WBC 16.87 > 10.75 HgB 13.5 > 10.6 Sodium 134, Potassium 3.5, BUN 11, Cr 0.[address] soft tissue neck unremarkable CT chest subpleural groundglass opacities CXR NAD Micro Blood cultures no growth at 24 hours IMPRESSION & PLAN URI Leukocytosis Hyponatremia Depression Prolonged generalized illness with leukocytosis, improved today Reviewed outpatient records (PCP and psychiatry). There seems to be a three to four-month period of decreased energy that may be related to depression (several reent medication changes to address this), in addition to a two-week history of more viral like symptoms. Recent ESR was normal (11), so no indication of PMR or other inflammatory etiology. Continue antibiotics pending 48 hour culture, then can transition to PO No changes to behavioral health medicaitons PT/OT today Will need three month follow up CT of chest as outpatient Additional per resident documentation Subjective Patient is sitting comfortably in chair. She mentions she has been feeling "run- down" for months now, and feels her recent illness has exacerbated it. Regarding her acute symptoms, she still endorses pleuritic chest pain across her anterior chest wall when breathing deeply. This does not improve with leaning forward. She mentions her neck hurts less and she is able to move it more freely. She denies it being MSK pain , and mentions it feels "deeper" than that. Her hands are not as achy as they were yesterday. She mentions last night, she coughed up more thick, green mucus. Nevertheless, she feels her resp. illness is getting better. Review of Systems Review of Systems: All systems reviewed & are unremarkable except as noted in HPI & below Physical Exam Constitutional: WD/WN, vitals as above ENMT: external ear and nose normal, oropharynx normal Neck: trachea midline, no thyromegaly Respiratory: normal respiratory effort, lungs clear to auscultation Cardiovascular: RRR, no murmur, no edema Gastrointestinal (Abdomen): normal bowel sounds, soft, nontender, no hepatosplenomegaly Results & Data Results & Data Vital Signs (Past 12 Hours) Vital Signs Temp Pulse Resp BP Pulse Ox O2 Del Method 10/28/24 07:32 36.8 C 95 H 16 138/78 94 Room Air 10/27/24 22:01 Room Air (9) HTN (hypertension) Hypertension type: essential hypertension Qualified Code(s): I10 - Essential (primary) hypertension
[2024-10-28] MEDS: FIRST - Mouthwash BLM 5 ML UDP PO SCH (11:40)
[2024-10-28] MEDS: MELATONIN 3 MG TAB PO PRN (20:11)
[2024-10-29 07:41] LABS: Basophils # (auto) 0.04 K/uL (0.00-0.20); Basophils % (auto) 0.5 %; Eosinophils # (auto) 0.28 K/uL (0.00-0.50); Eosinophils % (auto) 3.6 %; Hematocrit (blood only) 30.5 % (37.0-47.0); Hemoglobin 10.6 g/dl (12.0-16.0); Immature Granulocytes # (auto) 0.03 K/uL (0.01-0.20); Immature Granulocytes % (auto) 0.4 %; Lymphocytes # (auto) 1.18 K/uL (1.20-3.40); Mean Corpuscular Hemoglobin 35.8 pg (25.0-34.0); Mean Corpuscular Hgb Conc 34.8 g/dL (32.0-36.0); Monocytes % (auto) 10.2 %; Neutrophils # (auto) 5.55 K/uL (1.40-6.50); Neutrophils % (auto) 70.3 %; Platelet Count 308 K/uL (130-400); RDW Coefficient of Variation 13.7 % (11.5-14.5); RDW Standard Deviation 51.4 fL (36.4-46.3); Red Blood Count 2.96 M/uL (4.20-5.40); White Blood Count 7.88 K/ul (4.8-10.8)
[2024-10-29] MEDS ORDERED: guaiFENesin/DEXTROM SYRUP 200MG/20MG 10ML UDC PO PRN (08:00)
[2024-10-29 08:10] LABS: BUN Creatinine Ratio 13.2 (10-20); Calcium 8.4 mg/dl (8.6-10.3); Creatinine Clr Calc Pharmacy 73.8 ml/min; Potassium 3.6 mmol/L (3.5-5.1)
[2024-10-29] MEDS: HYDROXYUREA 500 MG CAP PO SCH (08:13)
--- NOTE | 2024-10-29 11:47 | Hospitalist Progress Note ---
Date of Service October 29, 2024 Assessment & Plan (1) Body aches: (2) Hip pain, right: (3) Dysphagia: (4) Lumbar back pain with radiculopathy affecting right lower extremity: (5) Hypercholesterolemia: (6) Essential thrombocytosis: (7) HTN (hypertension): (8) Hyponatremia: Plan 84 yr F w/ PMHx of HTN, HLD, GERD, peripheral neuropathy, depression, ROBERT w/ 1.5 weeks of sore throat, productive cough, pleuritic chest pain, leukocytosis with neutrophilia, CT showing subpleural ground-glass opacities without consolidation #Pneumonia vs Atypical Pneumonia vs viral URI - CXR: no cardiopulm findings - Chest CT: small subpleural ground glass opacities, no consolidation - neck CT: no acute findings, no pathological lymph node - negative influenza, COVID, GAS, Lyme panel - WBC 16.87 trending down to 7.88 - acetaminophen PRN for fevers/malaise - continue to monitor for worsening of resp symptoms - blood cultures negative for growth - discontinue IV Zosyn - PT/OT believes patient is able to go home once medically cleared #Mild Hyponatremia (resolved) - on arrival Na+ 131 -> 134 -> 136 - discontinue NS #Intermittent Vomiting - hx of intermittent vomiting that happens aprox. once per month, sometimes triggered by bowel movements - ondansetron PRN for vomiting - EGD was planned for 10/28, will be rescheduled d/t hospital admission #Hypertension - continue amlodipine, atenolol #Depression/ROBERT - patient mentions recent medication changes - continue venlafaxine 150 mg PO #Vit B12 Deficiency - continue B12 tablet #Essential Thrombocytosis - continue hydroxyurea Dispo: Med/ Surg tele VTE Prophylaxis: SCD Knee/ Mechanical Code: Full Code Admission and Anticipated Discharge Date Admission Date: October 27, 2024 Supervising Physician Co-Signing Physician Notes ATTESTATION I also saw the patient with the medical student and the PGY1 resident and completed an independent history and exam. I agree with the impression and plan in the resident documentation, and as summarized below. Arms do not hurt as much today. Feels better but tells me she is not ready to go home - "legs aren't there yet." EXAM Afebrile, VS stable. She appears non toxic; Alert and oriented. NAD, CV RRR Lungs CTA ABD soft and non tender. DATA Labs WBC 16.87 > 10.75 > 7.88 HgB 13.5 > 10.6 .>10.6 Sodium 136, Potassium 3.6, BUN 7, Cr 0.[address] soft tissue neck unremarkable CT chest subpleural groundglass opacities CXR NAD Micro Blood cultures no growth at 48 hours IMPRESSION & PLAN URI Leukocytosis Hyponatremia Depression Continues to improve. Overall suspicion that of non specific viral infection on top of depression. Reviewed outpatient records (PCP and psychiatry). There seems to be a three to four-month period of decreased energy that may be related to depression (several recent medication changes to address this), in addition to a two-week history of more viral like symptoms. Recent ESR was normal (11), so no indication of PMR or other inflammatory etiology. Discontinue antibiotics No changes to behavioral health medications given recent increase of Effexor; defer to outpatient team Continue PT/OT; anticipate discharge tomorrow Will need three month follow up CT of chest as outpatient Additional per resident documentation Subjective Patient is resting comfortably in bed. Patient mentions she feels better but does not feel all the way ready to go home. Regarding her acute symptoms, she still endorses pleuritic chest pain and cough productive of mucus, but denies chest pain, sore throat, lightheadedness, chills or fever. She mentions she lives alone in a 2-story house, but stays on the 1st floor. Review of Systems Review of Systems: All systems reviewed & are unremarkable except as noted in HPI & below Physical Exam Constitutional: WD/WN, vitals as above ENMT: external ear and nose normal, oropharynx normal Neck: trachea midline, no thyromegaly Respiratory: normal respiratory effort, lungs clear to auscultation Cardiovascular: RRR, no murmur, no edema Gastrointestinal (Abdomen): normal bowel sounds, soft, nontender, no hepatosplenomegaly Results & Data Results & Data Vital Signs (Past 12 Hours) Vital Signs Temp Pulse Resp BP O2 Del Method 10/29/24 08:10 Room Air 10/29/24 07:12 36.8 C 73 16 113/67 Room Air Resident Activity Tracking Resident Involvement: Resident Care Provided Care Provided: Adult Hospital Medicine Resident Supervision Co-Signing Physician Notes I independently took history and saw patient on my own, discussed with med student Halley and attending Dr. Cox. Improved from admission, still having pain in right shoulder and legs, overall sense of not feeling well, does not fell ready to go home yet. Exam: General: Looks well, not in distress, no dehydration, no labored breathing Lung: BL lungs clear, no added sound. CVS: [id number] MSK: No gross deformity Neuro: No focal deficit. Assessment: - Viral illness overall improving. WBCs trending down. - Stop Antibiotics for negative blood CS. - Continue OT/PT - Robitussin cough syrup added today. - Probable discharge tomorrow. - Reviewed b12 labs: recent values improved. - Platelets is WNL, continue hydroxurea. (7) HTN (hypertension) Hypertension type: essential hypertension Qualified Code(s): I10 - Essential (primary) hypertension
[2024-10-30 07:20] VITALS: RESP 18; TEMP 98.6; O2SAT 93
--- NOTE | 2024-10-30 08:55 | Electrocardiogram Report ---
Test Reason : Blood Pressure : */* mmHG Vent. Rate : 79 BPM Atrial Rate : 79 BPM P-R Int : 160 ms QRS Dur : 74 ms QT Int : 378 ms P-R-T Axes : 40 2 17 degrees QTcB Int : 433 ms Normal sinus rhythm Possible Inferior infarct , age undetermined Abnormal ECG When compared with ECG of 20-Mar-2023 14:59, Borderline criteria for Inferior infarct are now Present Confirmed by Alvaro Damon ([id number]) on 10/30/2024 8:55:06 AM Referred By: REFERRED SELF Confirmed By: Alvaro Damon
[2024-10-30 12:15] VITALS: BP 102/64; PULSE 78
--- NOTE | 2024-10-30 13:29 | Discharge Summary ---
Date of Service October 30, 2024 Admission HPI Per Admitting Provider 84 yr F w/ PMHx of hypertension, hyperlipidemia, GERD s/p fundoplication, and lower extremity peripheral neuropathy presenting w/ 1.5 weeks of severe sore throat, fatigue, and productive cough. Patient began feeling ill on Sunday evening with onset of severe, constant sore throat. She then developed fevers, chills, myalgia, fatigue, and general malaise. She was started on a 5-day Z-Ruben on Sunday but had little impro vement. Amoxicillin-clavulanate was added on Sunday, and she continued taking both. Symptoms have remained unchanged despite both antibiotics. She currently reports sore throat, dysphagia, productive cough with thick green sputum, bilateral frontal headache, facial pain near the jaw, and pleuritic chest pain only with deep breaths. She denies dyspnea, chest pain at rest, ear pain/fullness, sinus pressure, or changes to bowel or bladder habits. This morning, she took Tylenol around 6:30 AM for fever and body aches, and came to the ED because symptoms were not improving. Admission Exam (Per Admitting) Constitutional WD/WN, vitals as above ENMT external ear and nose normal, oropharynx normal Neck trachea midline, no thyromegaly Respiratory normal respiratory effort, lungs clear to auscultation Cardiovascular RRR, no murmur, no edema Gastrointestinal (Abdomen) normal bowel sounds, soft, nontender, no hepatosplenomegaly Constitutional WD/WN, vitals as above ENMT external ear and nose normal, oropharynx normal Neck trachea midline, no thyromegaly Respiratory normal respiratory effort, lungs clear to auscultation Cardiovascular RRR, no murmur, no edema Gastrointestinal (Abdomen) normal bowel sounds, soft, nontender, no hepatosplenomegaly Discharge Data Consultations 10/27/24 09:59 ED Decision to Admit Stat Hospital Course (1) Body aches: (2) Hip pain, right: (3) Dysphagia: (4) Lumbar back pain with radiculopathy affecting right lower extremity: (5) Hypercholesterolemia: (6) Essential thrombocytosis: (7) HTN (hypertension): (8) Hyponatremia: Allyson Sierra is a 84 yr F w/ PMHx of HTN, HLD, GERD, peripheral neuropathy, depression, ROBERT w/ 1.5 weeks of sore throat, productive cough, pleuritic chest pain. Prior to admission, she completed a 5-day course of Z-Ruben as outpatient treatment without significant improvement. On admission, initial workup showed leukocytosis with neutrophilia and chest CT showed subpleural ground-glass opacities without consolidation. She was treated empirically with 3-day course of IV Zosyn. Infectious panel was negative for influenza, COVID, group A strep, and Lyme. Blood cultures were negative. Symptoms improved during admission with supportive care, WBCs trended downward, and she remained afebrile. Once discharged, we recommend she continues with physical therapy at home, and repeat Chest CT in 3 months. #Pneumonia vs Atypical Pneumonia vs viral URI - CXR: no cardiopulm findings - Chest CT: small subpleural ground glass opacities, no consolidation - neck CT: no acute findings, no pathological lymph node - negative influenza, COVID, GAS, Lyme panel - WBC 16.87 trending down to 7.88 - blood cultures negative for growth - discontinue IV Zosyn - PT/OT believes patient is able to go home once medically cleared #Mild Hyponatremia (resolved) - on arrival Na+ 131 -> 134 -> 136 #Intermittent Vomiting - hx of intermittent vomiting that happens aprox. once per month, sometimes triggered by bowel movements - ondansetron PRN for vomiting - EGD was planned for 10/28, will be rescheduled d/t hospital admission #Hypertension - continue amlodipine, atenolol #Depression/ROBERT - patient mentions recent medication changes - continue venlafaxine 150 mg PO #Vit B12 Deficiency - continue B12 tablet #Essential Thrombocytosis - continue hydroxyurea Dispo: Med/ Surg tele VTE Prophylaxis: SCD Knee/ Mechanical Code: Full Code Supervising Physician Co-Signing Physician Notes ATTESTATION I also saw the patient with the medical student and the PGY1 resident and completed an independent history and exam. I agree with the impression and plan in the resident documentation, and as summarized below. She feels much better today and is ready to go home. Still not where she wants to be, but strong enough to return home. We talked about home PT, but she will wait until she has PCP follow up. EXAM VSS Pleasant. Talkative CV RRR Lungs CTA DATA Labs WBC 16.87 > 10.75 > 7.88 HgB 13.5 > 10.6 .>10.6 Sodium 136, Potassium 3.6, BUN 7, Cr 0.[address] soft tissue neck unremarkable CT chest subpleural groundglass opacities CXR NAD Micro Blood cultures no growth at 48 hours IMPRESSION & PLAN URI Leukocytosis Hyponatremia Depression Discharge to home today PCP follow up in one week CT chest in three months Will need previously scheduled EGD re-scheduled Additional per resident documentation I, Keo Cox DO, attending physician, spent 25 minutes myself seeing the patient, reviewing the chart, and documenting today.
== END 2024-10-30 13:50 | disposition home or self-care (01) | DRG 194 ==
LOC: ED 07:17 → 3E 11:14